=== PATIENT | female | born 1975 | race Caucasian/White ===

== ENCOUNTER 2018-03-25 13:07 | Emergency (ER) | payer MEDICARE, BC ==
[2018-03-25 13:46] LABS: BASO # 0.1 10^3/uL (0.0-0.2); BASO % 0.5 % (0.0-1.0); EOS % 0.2 % (0.0-3.0); HEMATOCRIT 37.2 % (36.0-47.0); HEMOGLOBIN 12.5 g/dl (12.0-15.5); IMMATURE GRANULOCYTE % 0.5 % (0-3.0); LYMPH # 1.5 10^3/uL (1.5-4.5); LYMPH % 13.8 % (24.0-44.0); MEAN CORPUSCULAR HEMOGLOBIN 31.4 pg (27.0-33.0); MEAN CORPUSCULAR HGB CONC 33.6 g/dl (32.0-36.5); MEAN CORPUSCULAR VOLUME 93.5 fl (80.0-96.0); MONO # 0.4 10^3/uL (0.0-0.8); MONO % 3.4 % (0.0-5.0); NEUTROPHILS # 8.8 10^3/uL (1.8-7.7); NEUTROPHILS % 81.6 % (36.0-66.0); PLATELET COUNT, AUTOMATED 337 10^3/uL (150-450); RED BLOOD COUNT 3.98 10^6/uL (4.00-5.40); RED CELL DISTRIBUTION WIDTH 13.2 % (11.5-14.5); VENOUS BASE EXCESS -3.3 (-2.0-2.0); VENOUS HCO3 22.1 MEQ/L (23.0-27.0); VENOUS O2 SATURATION 92.1 % (60.0-80.0); VENOUS PARTIAL PRESSURE CO2 40.8 mmHg (38.0-50.0); VENOUS PARTIAL PRESSURE O2 60.8 mmHg (30.0-50.0); VENOUS PH 7.351 UNITS (7.330-7.430); VENOUS STANDARD HCO3 21.6 MEQ/L; VENOUS TOTAL CO2 23.3 MEQ/L (24.0-28.0); WHITE BLOOD COUNT 10.8 10^3/uL (4.0-10.0)
[2018-03-25] MEDS: NS 1,000 ML IV ×2 (13:46→16:05)
[2018-03-25] MEDS: ONDANSETRON 4MG/2ML VIAL (J2405) IV (13:47)
[2018-03-25 14:03] LABS: CONTROL LINE HCG INT CTR LINE PRESENT; HCG, SERUM QUALITATIVE NEGATIVE (NEGATIVE)
[2018-03-25 14:04] LABS: INR 0.96; PROTHROMBIN TIME 12.9 SECONDS (12.1-14.4)
[2018-03-25] MEDS: MORPHINE 4 MG/ML 1ML VIAL/SYRINGE (J2270) IV (14:08)
[2018-03-25 14:11] LABS: ALBUMIN 3.4 GM/DL (3.2-5.2); ALBUMIN/GLOBULIN RATIO 0.68 (1.00-1.93); ALKALINE PHOSPHATASE 141 U/L (45-117); ALT/SGPT 21 U/L (12-78); ANION GAP 14 MEQ/L (8-16); AST/SGOT 12 U/L (7-37); BILIRUBIN,DIRECT < 0.1 MG/DL (0.0-0.2); BILIRUBIN,TOTAL 0.3 MG/DL (0.2-1.0); BLOOD UREA NITROGEN 20 MG/DL (7-18); CALCIUM LEVEL 9.2 MG/DL (8.5-10.1); CARBON DIOXIDE LEVEL 25 MEQ/L (21-32); CHLORIDE LEVEL 93 MEQ/L (98-107); CREATININE FOR GFR 0.82 MG/DL (0.55-1.30); ESTIMATED AVERAGE GLUCOSE 404 MG/DL (60-110); ETHYL ALCOHOL (ETHANOL) < 0.003 % (0.000-0.010); GLOMERULAR FILTRATION RATE > 60.0 (>58); HEMOGLOBIN A1c 15.7 %; LIPASE 60 U/L (73-393); POTASSIUM SERUM 4.7 MEQ/L (3.5-5.1); SODIUM LEVEL 132 MEQ/L (136-145); TOTAL PROTEIN 8.4 GM/DL (6.4-8.2)
[2018-03-25 14:13] LABS: LACTIC ACID SEPSIS PROTOCOL 0.9 MMOL/L (0.4-2.0)
[2018-03-25 14:19] LABS: GLUCOSE, FASTING 500 MG/DL (70-100)
[2018-03-25] MEDS: MORPHINE 2 MG/ML 1ML SYRINGE (J2270) IV (15:30)
[2018-03-25 15:55] LABS: BEDSIDE GLUCOSE 384 MG/DL (70-105)
[2018-03-25] MEDS: HumuLIN R (REGULAR) INSULIN (NovoLIN R) **100U/ML** PER UNIT IV ×2 (16:14→17:06)
[2018-03-25 16:19] LABS: AMORPHOUS SEDIMENT RFX SMALL (NEGATIVE); KETONE, URINE AUTO RFX 2+ mg/dL (NEGATIVE); LEUKOCYTE ESTERASE UR AUTO RFX NEGATIVE (NEGATIVE); MUCUS, URINE RFX SMALL (NEGATIVE); NITRITE, URINE AUTO RFX NEGATIVE (NEGATIVE); RBC, URINE AUTO RFX 41 /HPF (0-3); SPECIFIC GRAVITY UR AUTO RFX 1.027 (1.002-1.035); SQUAM EPITHELIAL CELL UR AURFX 4 /HPF (0-6); WBC, URINE AUTO RFX 9 /HPF (0-3)
[2018-03-25 16:34] LABS: AMPHETAMINES LEVEL URINE NEGATIVE (NEGATIVE); BARBITURATES URINE NEGATIVE (NEGATIVE); BENZODIAZEPINES URINE NEGATIVE (NEGATIVE); CANNABINOIDS URINE NEGATIVE (NEGATIVE); COCAINE METABOLITE URINE NEGATIVE (NEGATIVE); METHADONE URINE NEGATIVE (NEGATIVE); OPIATES URINE POSITIVE (NEGATIVE); PHENCYCLIDINE URINE NEGATIVE (NEGATIVE)
[2018-03-25 16:56] LABS: BEDSIDE GLUCOSE 292 MG/DL (70-105)
[2018-03-25] MEDS: PANTOPRAZOLE 40MG TAB (PROTONIX) PO (18:16)
[2018-03-25] MEDS: GI COCKTAIL 50ML BTL(HYOSCYAMINE/MAALOX/LIDOCAINE VISCOUS)(1:3:1) PO (18:16)
[2018-03-25] MEDS: PERCOCET 5MG/325MG TAB PO (18:17)
[2018-03-25 18:20] LABS: BEDSIDE GLUCOSE 238 MG/DL (70-105)
[2018-03-28 13:50] LABS: BEDSIDE GLUCOSE 562 MG/DL (70-105)
== END 2018-03-25 18:39 | disposition home or self-care (01) ==
LOC: M ED 13:07
DX: N39.0 Urinary tract infection, site not specified (principal); E11.65 Type 2 diabetes mellitus with hyperglycemia; F17.200 Nicotine dependence, unspecified, uncomplicated; Z88.1 Allergy status to other antibiotic agents; Z88.8 Allergy status to other drugs, medicaments and biological substances
CPT/HCPCS: J2270

== ENCOUNTER 2019-01-03 01:15 | Inpatient (IN) | payer MEDICARE, MEDICAID ==
[~2019-01-03] VITALS: Ht 185.4 cm; Wt 69.3 kg
[2019-01-03] VITALS (16 sets, daily range): BP systolic 105–157; BP diastolic 65–95
[~2019-01-03 01:15] MED LIST: KEPP10002 PO; MACR100C43 PO; OMEP10CASR PO
[2019-01-03] MEDS ORDERED: OXYC15TA76 (01:28)
[2019-01-03] MEDS ORDERED: SERT-155 (01:28)
[2019-01-03] MEDS ORDERED: DIAZ2TAB (01:28)
[2019-01-03 02:58] LABS: BASO # 0.1 10^3/uL (0.0-0.2); BASO % 0.5 % (0.0-1.0); HEMATOCRIT 41.2 % (36.0-47.0); HEMOGLOBIN 13.4 g/dl (12.0-15.5); LYMPH # 1.4 10^3/uL (1.5-4.5); LYMPH % 13.6 % (24.0-44.0); MEAN CORPUSCULAR HEMOGLOBIN 30.2 pg (27.0-33.0); MEAN CORPUSCULAR HGB CONC 32.5 g/dl (32.0-36.5); MEAN CORPUSCULAR VOLUME 92.8 fl (80.0-96.0); MONO # 0.2 10^3/uL (0.0-0.8); MONO % 2.2 % (0.0-5.0); NEUTROPHILS # 8.8 10^3/uL (1.8-7.7); PLATELET COUNT, AUTOMATED 425 10^3/uL (150-450); RED BLOOD COUNT 4.44 10^6/uL (4.00-5.40); WHITE BLOOD COUNT 10.6 10^3/uL (4.0-10.0)
[2019-01-03] MEDS ORDERED: NS 1,000 ML IV ONE ×3 (03:00→06:00)
[2019-01-03] MEDS ORDERED: INSULIN IV RATE CHANGE DOCUMENTATION ML/HR XX SCH (03:00)
[2019-01-03] MEDS ORDERED: HumuLIN R (REGULAR) INSULIN (NovoLIN R) **100U/ML** PER UNIT IV ONE ×2 (03:00→04:15)
[2019-01-03] MEDS ORDERED: INSULIN HUMAN REGULAR 100 UNITS in NS 99 ML IV SCH ×2 (03:00→04:43)
[2019-01-03] MEDS ORDERED: OXYC15TA76 PO (03:29)
[2019-01-03] MEDS ORDERED: DIAZ2TAB PO (03:29)
[2019-01-03] MEDS ORDERED: SERT-155 PO (03:29)
[2019-01-03] MEDS ORDERED: INSUH10VL SC (03:29)
[2019-01-03] MEDS ORDERED: OMEP10CA78 PO (03:29)
[2019-01-03] MEDS ORDERED: TRES1INJ SC (03:29)
[2019-01-03] MEDS ORDERED: KEPP10002 PO (03:29)
[2019-01-03 04:08] LABS: ALT/SGPT 22 U/L (12-78); BILIRUBIN,TOTAL 0.5 MG/DL (0.2-1.0); BLOOD UREA NITROGEN 45 MG/DL (7-18); CALCIUM LEVEL 9.5 MG/DL (8.5-10.1); CARBON DIOXIDE LEVEL 12 MEQ/L (21-32); CHLORIDE LEVEL 93 MEQ/L (98-107); CREATININE FOR GFR 1.48 MG/DL (0.55-1.30); GLOMERULAR FILTRATION RATE 41.4 (>58); GLUCOSE, FASTING 532 MG/DL (70-100); SODIUM LEVEL 132 MEQ/L (136-145)
[2019-01-03 04:09] LABS: BILIRUBIN,DIRECT < 0.1 MG/DL (0.0-0.2); LIPASE 41 U/L (73-393); TOTAL PROTEIN 8.7 GM/DL (6.4-8.2)
[2019-01-03] MEDS ORDERED: METOCLOPRAMIDE INJ 10MG/2ML VIAL (J2765) IV ONE (04:15)
[2019-01-03 04:31] LABS: ACETONE/KETONE > 46.00 MG/DL (<2.81)
[2019-01-03] MEDS ORDERED: NS 1,000 ML IV SCH (04:43)
[2019-01-03] MEDS ORDERED: D5W/0.9% SODIUM CHLORIDE 1,000 ML IV SCH (04:45)
[2019-01-03] MEDS ORDERED: PANTOPRAZOLE 40MG INJ (PROTONIX) (C9113) IV ONE (05:15)
[2019-01-03] MEDS ORDERED: MORPHINE 4 MG/ML 1ML VIAL/SYRINGE (J2270) IV ONE ×2 (05:45→08:00)
[2019-01-03] MEDS ORDERED: MAALOX 30 ML SUSP *UDC PO PRN (05:45)
--- NOTE | 2019-01-03 05:56 | HPEPDOC ---
General Date of Admission 01/03/19 Primary Care Physician: Juan C Other Providers Dr Brown, PCP Chief Complaint The patient is a 43-year-old female admitted with a reason for visit of General Medical. Source: Patient, Old records Exam Limitations: No limitations Associated Symptoms: Loss of appetite, Malaise, Nausea, Vomiting History of Present Illness 43 year old female with PMH of Diabetes type 1 from the age of 24 years, diabetic neuropathy, seizure disorder, anxiety/ depression presented to the ED with 4 days history of nausea and vomiting and abdominal pain. It started after her kids got sick with some bug and thery were having diarrhea and vomiting and she thinks she caught it from them. She however did not have diarrhea. She has been unable to eat and keep anything down so she has not been taking her insulin. If she cannot eat then she does nto take her insulin. In the ED she was found to be in DKA and admitted to the hospitalist service. Home Medications Scheduled Insulin Degludec (Tresiba Flextouch U-200) 200 Unit/1 Ml Insuln.pen, 42 UNIT SC DAILY, (Reported) Insulin Human Lispro (Novolog) 100 Unit/1 Ml Vial, 1 DOSE SC AC, (Reported) PER SLIDING SCALE Levetiracetam (Keppra) 1,000 Mg Tablet, 1,000 MG PO BID, (Reported) Omeprazole (Omeprazole) 10 Mg Capsule.dr, 10 MG PO DAILY, (Reported) Sertraline HCl (Sertraline HCl) 50 Mg Tablet, 50 MG PO DAILY, (Reported) Scheduled PRN Diazepam (Diazepam) 2 Mg Tablet, 2 MG PO TID PRN for ANXIETY, (Reported) Oxycodone Hcl (Oxycodone HCl) 15 Mg Tablet, 15 MG PO Q4H PRN for PAIN, (R eported) Allergies Coded Allergies: ciprofloxacin (Verified Allergy, Unknown, 01/03/19) gabapentin (Verified Allergy, Unknown, 01/03/19) pregabalin (Verified Allergy, Unknown, 01/03/19) vancomycin (Verified Allergy, Unknown, 01/03/19) Past Medical History Medical History Diabetes type 1 diabetic neuropathy Seizure disorder Anxiety and depression osteoarthritis tremors/ restless legs left and right foot osteomyelitis recurrent boils of the legs. Surgical History c section 2004 cholecystectomy 2012 right transmetatarsal amputation wound vac surgery Family History Significant Family History: Diabetes Social History * Smoker: current smoker Alcohol: Denies Drugs: denies Review of Systems Constitutional: Reports: Malaise, Weakness, Fatigue ENT: Denies: Head Aches, Ear Pain, Dysphagia Skin: Denies: Rash, Lesions Pulmonary: Denies: Dyspnea, Cough Cardiovascular: Reports: Lt Headedness; Denies: Chest Pain, Palpitations, Orthopnea Gastrointestinal: Reports: Nausea, Vomiting, Abdominal Pain Genitourinary: Denies: Dysuria, Frequency, Incontinence Hematologic: Denies: Bruising, Bleeding Excessively Neurological: Denies: Numbness, Change in speech, Confusion Psych: Reports: Mood Normal; Denies: Depression, Memory Issues Physical Examination General Exam: Positive: Alert, Cooperative, Mild Distress (due to vomiting) Eye Exam: Positive: PERRLA, Conjunctiva & lids normal, EOMI Neck Exam: Positive: Supple Chest Exam: Positive: Clear to auscultation, Normal air movement Heart Exam: Positive: Rate Normal, Regular Rhythm, Normal S1, Normal S2; Negative: Murmurs, Rubs Telemetry: Positive: Sinus, Tachycardia Abdomen Exam: Positive: BS Hypoactive, Soft, Tenderness, Other (No guarding or rigidity or rebound tenderness. ) Extremity Exam: Positive: Other (right transmetatarsal amputation); Negative: Clubbing, Cyanosis, Edema Neuro Exam: Positive: Normal Speech, Strength at 5/5 X4 ext Psych Exam: Positive: Mental status NL, Oriented x 3 Vital Signs Vital Signs Date Time Temp Pulse Resp B/P (MAP) Pulse Ox O2 Delivery O2 Flow Rate FiO2 01/03/19 03:19 101 28 97/59 (72) 99 Room Air 01/03/19 01:41 96.7 Laboratory Data Labs 24H Laboratory Tests 2 01/03/19 02:21: Bedside Glucose (Misc Panel) 494H 01/03/19 02:52: Immature Granulocyte % (Auto) 0.7, White Blood Count 10.6H, Red Blood Count 4.44, Hemoglobin 13.4, Hematocrit 41.2, Mean Corpuscular Volume 92.8, Mean Corpuscular Hemoglobin 30.2, Mean Corpuscular Hemoglobin Concent 32.5, Red Cell Distribution Width 13.2, Platelet Count 425, Neutrophils (%) (Auto) 83.0H, Lymphocytes (%) (Auto) 13.6L, Monocytes (%) (Auto) 2.2, Eosinophils (%) (Auto) 0.0, Basophils (%) (Auto) 0.5, Neutrophils # (Auto) 8.8H, Lymphocytes # (Auto) 1.4L, Monocytes # (Auto) 0.2, Eosinophils # (Auto) 0.0, Basophils # (Auto) 0.1, Nucleated Red Blood Cells % (auto) 0.0, Anion Gap 27H, Glomerular Filtration Rate 41.4L, Lactic Acid Level 1.2, Calcium Level 9.5, Aspartate Amino Transf (AST/SGOT) 9, Alanine Aminotransferase (ALT/SGPT) 22, Alkaline Phosphatase 148H, Total Bilirubin 0.5, Direct Bilirubin < 0.1, Total Protein 8.7H, Albumin 4.0, Albumin/Globulin Ratio 0.85L, Lipase 41L, B-Hydroxybutyrate > 46.00H 01/03/19 03:08: Bedside Glucose (Misc Panel) 535*H 01/03/19 03:41: Bedside Glucose (Misc Panel) 409H 01/03/19 04:09: Bedside Glucose (Misc Panel) 398H 01/03/19 04:37: CBC/BMP Laboratory Tests 01/03/19 02:52 Red Blood Count 4.44, Mean Corpuscular Volume 92.8, Mean Corpuscular Hemoglobin 30.2, Mean Corpuscular Hemoglobin Concent 32.5, Red Cell Distribution Width 13.2, Neutrophils (%) (Auto) 83.0 H, Lymphocytes (%) (Auto) 13.6 L, Monocytes (%) (Auto) 2.2, Eosinophils (%) (Auto) 0.0, Basophils (%) (Auto) 0.5, Neutrophils # (Auto) 8.8 H, Lymphocytes # (Auto) 1.4 L, Monocytes # (Auto) 0.2, Eosinophils # (Auto) 0.0, Basophils # (Auto) 0.1 Assessment/Plan 43 year old female with PMH of Diabetes type 1 from the age of 24 years, diabetic neuropathy, seizure disorder, anxiety/ depression presented to the ED with 4 days history of nausea and vomiting and abdominal pain. It started after her kids got sick with some bug and thery were having diarrhea and vomiting and she thinks she caught it from them. She however did not have diarrhea. She has been unable to eat and keep anything down so she has not been taking her insulin. If she cannot eat then she does nto take her insulin. In the ED she was found to be in DKA and admitted to the hospitalist service. DKA will admit to ICU NS bolus 2 liters then NS @ 150 cc / hour. Once BS drops below 200 change IVF to 5%dex/ Ns @ 100 cc per hour. BMP q 4 hours. Regular insulin gtt as per scale. will continue insulin gtt tillbicarb is 20 or greater then will change to sub cutaneous insulin. FS q 1 hours. NPO, reglan. ISABEL due to osmotic diuresis and poor oral intake continue IVF. Severe protein calorie Malnutrition as seen by temporal wasting, BMI of 17.7, Albumin is not low which i think is due to dehydration is falsely elevated. Seizure disorder will continue home meds Chronic pain will give morphine now then change to home medication when she can tolerate PO meds. Anxiety and depression continue home meds GERD will give pantoprazole and maalox. DVT prophylaxis ordered. Plan / VTE VTE Prophylaxis Ordered?: Yes RAND DIAS MD Jan 03, 2019 04:43
[2019-01-03] MEDS ORDERED: diazePAM 2 MG TAB PO PRN (06:00)
[2019-01-03] MEDS: INSULIN IV RATE CHANGE DOCUMENTATION ML/HR XX SCH ×5 (06:01→10:58)
[2019-01-03 06:09] LABS: ABG BASE EXCESS -8.3 (-2.0-2.0); ABG HCO3 17.8 MEQ/L (22.0-26.0); ABG O2 SATURATION 71.3 % (95.0-99.0); ABG PARTIAL PRESSURE CO2 38.6 mmHg (35.0-45.0); ABG STANDARD HCO3 17.3 MEQ/L (22.0-26.0); ABG pH (ARTERIAL) 7.281 UNITS (7.350-7.450)
[2019-01-03 06:12] LABS: ABG PARTIAL PRESSURE O2 39.9 mmHg (75.0-100.0)
[2019-01-03 06:25] LABS: HEMOGLOBIN A1c 14.7 %
[2019-01-03 06:32] LABS: CALCIUM LEVEL 8.6 MG/DL (8.5-10.1); CREATININE FOR GFR 1.43 MG/DL (0.55-1.30); POTASSIUM SERUM 3.3 MEQ/L (3.5-5.1)
[2019-01-03] MEDS ORDERED: KCL 40MEQ in NS 1000ML 1,000 ML IV SCH (06:45)
--- NOTE | 2019-01-03 07:06 | REP ---
The portable chest at two views, semi upright AP projections, 02:55 a.m., post central venous catheter placement: There are no comparisons. There is a right subclavian central venous catheter with the tip at the confluence of the superior vena cava and right atrium in satisfactory position. Lung younger are clear. Cardiac size is normal. A loop recorder is incidentally noted over the left hemithorax. The Electronically Signed by Shalom Thomas MD 01/03/2019 06:57 A
[2019-01-03] MEDS: METOCLOPRAMIDE INJ 10MG/2ML VIAL (J2765) IV PRN ×2 (07:08→19:50)
[2019-01-03] MEDS: KCL 10MEQ/100ML SWI (KRUN) 10 MEQ in APPROPRIATE DILUENT 1 EA IV SCH ×2 (07:09→08:17)
[2019-01-03] MEDS ORDERED: ONDANSETRON 4MG/2ML VIAL (J2405) IV SCH (08:00)
[2019-01-03] MEDS ORDERED: ONDANSETRON 4MG/2ML VIAL (J2405) IV PRN (08:30)
[2019-01-03] MEDS: HEPARIN SOD (PORCINE) 5000 UNITS/ML VIAL SC SCH ×2 (08:40→20:37)
[2019-01-03] MEDS: PANTOPRAZOLE 40MG INJ (PROTONIX) (C9113) IV SCH (08:40)
[2019-01-03] MEDS: SERTRALINE HCL 50 MG TAB PO SCH (08:40)
[2019-01-03] MEDS ORDERED: levETIRAcetam 250MG TABLET (KEPPRA) PO SCH (09:00)
[2019-01-03] MEDS ORDERED: PANTOPRAZOLE 40MG INJ (PROTONIX) (C9113) IV SCH (09:00)
[2019-01-03] MEDS: levETIRAcetam INJection 1,000 MG in D5W 100 ML IV SCH ×2 (09:46→21:40)
[2019-01-03] MEDS: KCL 20MEQ IN D5/0.45NS 1000ML 1,000 ML IV SCH ×2 (09:47→18:40)
[2019-01-03] MEDS ORDERED: MORPHINE 4 MG/ML 1ML VIAL/SYRINGE (J2270) IV PRN (10:15)
[2019-01-03 11:16] LABS: CREATININE FOR GFR 1.29 MG/DL (0.55-1.30); GLOMERULAR FILTRATION RATE 48.5 (>58); POTASSIUM SERUM 4.2 MEQ/L (3.5-5.1)
[2019-01-03] MEDS ORDERED: GLUCAGON FOR INJ 1 MG VIAL (J1610) SC PRN (12:00)
[2019-01-03] MEDS ORDERED: GLUCOSE 4 GM CHEW TABLET PO PRN (12:00)
[2019-01-03] MEDS ORDERED: DEXTROSE 50% 50 ML SYRINGE IV PRN (12:00)
[2019-01-03] MEDS: HumaLOG INSULIN (NovoLOG) PER UNIT SC SCH ×2 (12:30→17:08)
[2019-01-03] MEDS: oxyCODONE 5MG TAB PO PRN ×3 (12:31→20:30)
[2019-01-03 17:46] LABS: CREATININE FOR GFR 1.18 MG/DL (0.55-1.30); GLOMERULAR FILTRATION RATE 53.7 (>58); POTASSIUM SERUM 3.9 MEQ/L (3.5-5.1)
[2019-01-03] MEDS ORDERED: LEVEMIR (INSULIN DETEMIR) 1 UNITS/0.01ML SC SCH (21:00)
[2019-01-04] VITALS (7 sets, daily range): BP systolic 91–110; BP diastolic 49–75
[2019-01-04] MEDS: HumaLOG INSULIN (NovoLOG) PER UNIT SC SCH ×4 (00:28→17:19)
[2019-01-04] MEDS: oxyCODONE 5MG TAB PO PRN ×6 (00:30→21:06)
[2019-01-04 05:38] LABS: HEMATOCRIT 31.4 % (36.0-47.0); MEAN CORPUSCULAR HEMOGLOBIN 30.1 pg (27.0-33.0); MEAN CORPUSCULAR HGB CONC 33.1 g/dl (32.0-36.5); PLATELET COUNT, AUTOMATED 319 10^3/uL (150-450); RED BLOOD COUNT 3.45 10^6/uL (4.00-5.40); WHITE BLOOD COUNT 10.3 10^3/uL (4.0-10.0)
[2019-01-04 05:42] LABS: HEMOGLOBIN 10.4 g/dl (12.0-15.5)
[2019-01-04] MEDS: KCL 20MEQ IN D5/0.45NS 1000ML 1,000 ML IV SCH ×2 (06:00→12:36)
[2019-01-04 06:05] LABS: ALBUMIN 2.9 GM/DL (3.2-5.2); ALT/SGPT 15 U/L (12-78); BILIRUBIN,TOTAL 0.2 MG/DL (0.2-1.0); BLOOD UREA NITROGEN 16 MG/DL (7-18); CALCIUM LEVEL 8.2 MG/DL (8.5-10.1); CARBON DIOXIDE LEVEL 26 MEQ/L (21-32); CHLORIDE LEVEL 106 MEQ/L (98-107); CREATININE FOR GFR 1.05 MG/DL (0.55-1.30); GLOMERULAR FILTRATION RATE > 60.0 (>58); GLUCOSE, FASTING 156 MG/DL (70-100); MAGNESIUM LEVEL 1.7 MG/DL (1.8-2.4); POTASSIUM SERUM 3.9 MEQ/L (3.5-5.1); SODIUM LEVEL 140 MEQ/L (136-145); TOTAL PROTEIN 6.6 GM/DL (6.4-8.2)
[2019-01-04] MEDS: SERTRALINE HCL 50 MG TAB PO SCH (08:43)
[2019-01-04] MEDS: HEPARIN SOD (PORCINE) 5000 UNITS/ML VIAL SC SCH ×4 (08:44→21:00)
[2019-01-04] MEDS: levETIRAcetam INJection 1,000 MG in D5W 100 ML IV SCH (08:44)
[2019-01-04] MEDS: PANTOPRAZOLE 40MG INJ (PROTONIX) (C9113) IV SCH (08:44)
[2019-01-04] MEDS: METOCLOPRAMIDE 10 MG TAB PO SCH ×3 (12:00→21:06)
--- NOTE | 2019-01-04 12:52 | IPNPDOC ---
Subjective Date Seen The patient was seen on 01/04/19. Subjective Chief Complaint/HPI Patient is tolerating breakfast today and some nausea but offers no other complaints General: Reports: Normal Appetite; Denies: Chills, Night Sweats, Fatigue, Malaise Constitutional: Denies: Chills, Fever, Night Sweats Eyes: Denies: Pain, Vision change ENT: Denies: Head Aches, Ear Pain, Dysphagia Skin: Denies: Rash, Lesions, Breakdown Pulmonary: Denies: Dyspnea, Cough Cardiovascular: Denies: Chest Pain, Palpitations, Orthopnea, Paroxysmal Noc. Dyspnea, Lt Headedness Gastrointestinal: Reports: Nausea; Denies: Vomiting, Abdominal Pain, Diarrhea, Constipation Genitourinary: Denies: Dysuria, Frequency, Incontinence, Retention Hematologic: Denies: Bruising, Bleeding Excessively Musculoskeletal: Denies: Neck Pain, Back Pain, Joint Pain, Muscle Pain, Spasms Neurological: Denies: Weakness, Numbness, Change in speech, Confusion Psych: Reports: Mood Normal; Denies: Depression, Memory Issues Objective Physical Examination General Exam: Positive: Alert, Cooperative, Mild Distress Eye Exam: Positive: PERRLA, Conjunctiva & lids normal, EOMI Neck Exam: Positive: Supple Chest Exam: Positive: Clear to auscultation, Normal air movement Heart Exam: Positive: Rate Normal, Regular Rhythm, Normal S1, Normal S2 Telemetry: Positive: Sinus, Tachycardia Abdomen Exam: Positive: BS Hypoactive, Soft, Tenderness, Other Extremity Exam: Positive: Other Neuro Exam: Positive: Normal Speech, Strength at 5/5 X4 ext Psych Exam: Positive: Mental status NL, Oriented x 3 Assessment /Plan Problems (1) DKA (diabetic ketoacidoses) Status: Acute Response to Treatment: Improving Discussed With: Nurse Problem Text: Patient is tolerating breakfast today and will also have for 24 hours She'll be transferred to medical floor for further care Patient is on a fingerstick blood sugar coverage. We'll increase Lantus to home dose of 42 units subcutaneous daily at bedtime Change all IV meds to by mouth DVT prophylaxis with the heparin GI prophylaxis with a PPI Continue home meds Out of bed as tolerated Possible discharge home tomorrow a.m. Plan/VTE VTE Prophylaxis Ordered?: Yes VS, I&O, 24H, Fishbone Vital Signs/I&O Vital Signs Date Time Temp Pulse Resp B/P (MAP) Pulse Ox O2 Delivery O2 Flow Rate FiO2 01/04/19 12:36 16 98 01/04/19 12:00 98.3 96 96/55 (69) 01/03/19 06:15 Room Air I&O- Last 24 Hours up to 6 AM 01/04/19 06:00 Intake Total 5150 ml Output Total 2900 ml Balance 2250 ml Laboratory Data 24H LABS Laboratory Tests 2 01/03/19 17:05: Bedside Glucose (Misc Panel) 283H 01/03/19 17:11: Anion Gap 12, Glomerular Filtration Rate 53.7L, Blood Urea Nitrogen 29H, Creatinine 1.18, Sodium Level 139, Potassium Level 3.9, Chloride Level 107, Ca rbon Dioxide Level 20L, Calcium Level 8.0L 01/03/19 20:26: Bedside Glucose (Misc Panel) 281H 01/04/19 00:19: Bedside Glucose (Misc Panel) 371H 01/04/19 05:28: Nucleated Red Blood Cells % (auto) 0.0, Anion Gap 8, Glomerular Filtration Rate > 60.0, Blood Urea Nitrogen 16, Creatinine 1.05, Sodium Level 140, Potassium Level 3.9, Chloride Level 106, Carbon Dioxide Level 26, Calcium Level 8.2L, Aspartate Amino Transf (AST/SGOT) 10, Alanine Aminotransferase (ALT/SGPT) 15, Alkaline Phosphatase 100, Total Bilirubin 0.2#, Total Protein 6.6#, Albumin 2.9#L, Magnesium Level 1.7L, Albumin/Globulin Ratio 0.78L 01/04/19 11:41: Bedside Glucose (Misc Panel) 241H CBC/BMP Laboratory Tests 01/03/19 17:11 Calcium Level 8.0 L 01/04/19 05:28 Calcium Level 8.2 L, Red Blood Count 3.45 L, Mean Corpuscular Volume 91.0, Mean Corpuscular Hemoglobin 30.1, Mean Corpuscular Hemoglobin Concent 33.1, Red Cell Distribution Width 13.5, Aspartate Amino Transf (AST/SGOT) 10, Alanine Aminotransferase (ALT/SGPT) 15, Alkaline Phosphatase 100, Total Bilirubin 0.2 #, Total Protein 6.6 #, Albumin 2.9 #L KIZZY HAN MD Jan 04, 2019 12:52
[2019-01-04] MEDS ORDERED: HumaLOG INSULIN (NovoLOG) PER UNIT SC SCH (21:00)
[2019-01-04] MEDS ORDERED: LEVEMIR (INSULIN DETEMIR) 1 UNITS/0.01ML SC SCH (21:00)
[2019-01-04] MEDS: levETIRAcetam 250MG TABLET (KEPPRA) PO SCH (21:06)
[2019-01-05] MEDS: oxyCODONE 5MG TAB PO PRN ×3 (01:14→10:37)
[2019-01-05] MEDS: KCL 20MEQ IN D5/0.45NS 1000ML 1,000 ML IV SCH ×2 (01:15→09:18)
[2019-01-05 06:00] VITALS: BP 115/74
[2019-01-05] MEDS: HumaLOG INSULIN (NovoLOG) PER UNIT SC SCH ×2 (08:03→12:11)
[2019-01-05] MEDS: HEPARIN SOD (PORCINE) 5000 UNITS/ML VIAL SC SCH (08:04)
[2019-01-05] MEDS: levETIRAcetam 250MG TABLET (KEPPRA) PO SCH (08:04)
[2019-01-05] MEDS: SERTRALINE HCL 50 MG TAB PO SCH (08:04)
[2019-01-05 08:05] LABS: HEMATOCRIT 30.1 % (36.0-47.0); MEAN CORPUSCULAR HEMOGLOBIN 30.4 pg (27.0-33.0); MEAN CORPUSCULAR HGB CONC 33.2 g/dl (32.0-36.5); MEAN CORPUSCULAR VOLUME 91.5 fl (80.0-96.0); PLATELET COUNT, AUTOMATED 247 10^3/uL (150-450); RED BLOOD COUNT 3.29 10^6/uL (4.00-5.40); WHITE BLOOD COUNT 5.6 10^3/uL (4.0-10.0)
[2019-01-05 08:32] LABS: ALBUMIN 2.6 GM/DL (3.2-5.2); ALT/SGPT 14 U/L (12-78); BILIRUBIN,TOTAL 0.2 MG/DL (0.2-1.0); BLOOD UREA NITROGEN 15 MG/DL (7-18); CALCIUM LEVEL 8.2 MG/DL (8.5-10.1); CARBON DIOXIDE LEVEL 29 MEQ/L (21-32); CHLORIDE LEVEL 106 MEQ/L (98-107); CREATININE FOR GFR 0.58 MG/DL (0.55-1.30); GLOMERULAR FILTRATION RATE > 60.0 (>58); GLUCOSE, FASTING 120 MG/DL (70-100); POTASSIUM SERUM 4.4 MEQ/L (3.5-5.1); SODIUM LEVEL 140 MEQ/L (136-145); TOTAL PROTEIN 5.9 GM/DL (6.4-8.2)
[2019-01-05] MEDS: METOCLOPRAMIDE 10 MG TAB PO SCH ×2 (08:33→12:11)
[2019-01-05] MEDS ORDERED: PANTOPRAZOLE 40MG TAB (PROTONIX) PO SCH (09:00)
--- NOTE | 2019-01-05 10:59 | DS.PDOC ---
Discharge Summary General Date of Admission Jan 03, 2019 at 04:43 Date of Discharge January 05 2019 Attending Physician: KIZZY HAN MD Discharge Summary PROCEDURES PERFORMED DURING STAY: None. ADMITTING DIAGNOSES: 1. DKA. DISCHARGE DIAGNOSES: 1. DKA. COMPLICATIONS/CHIEF COMPLAINT: Dka (Diabetic Ketoacidoses). HISTORY OF PRESENT ILLNESS: 43 year old female with PMH of Diabetes type 1 from the age of 24 years, diabetic neuropathy, seizure disorder, anxiety/ depression presented to the ED with 4 days history of nausea and vomiting and abdominal pain. It started after her kids got sick with some bug and thery were having diarrhea and vomiting and she thinks she caught it from them. She however did not have diarrhea. She has been unable to eat and keep anything down so she has not been taking her insulin. If she cannot eat then she does nto take her insulin. In the ED she was found to be in DKA and admitted to the hospitalist service.. HOSPITAL COURSE: Patient was admitted to ICU for with DKA. Initially she was started on IV insulin with IV fluids O on fluids were changed to D5 half-normal saline. Once the blood sugar was up to 200. Potassium supplement was also given. Patient is a gradient dropped down from a 35-12, and insulin was changed to subcutaneous coverage. Patient was started on her clear liquid diet followed by regular diet and was started on on her basal insulin as well. Extensive counseling regarding compliance was done and all the complications of diabetes mellitus and nontreatment and noncompliance were explained to her, which she understands very well. Patient can be discharged home on her current home medications and follow up with PCP in one week. DISCHARGE MEDICATIONS: Please see below. ALLERGIES: Please see below. PHYSICAL EXAMINATION ON DISCHARGE: VITAL SIGNS: Please see below. GENERAL: Within normal limits HEENT: PERRLA NECK: Supple CARDIOVASCULAR EXAMINATION: S1, S2, regular RESPIRATORY EXAMINATION: Clear to A&P ABDOMINAL EXAMINATION: Benign EXTREMITIES:. No clubbing, cyanosis or edema SKIN: Within normal limits NEUROLOGICAL EXAMINATION: Within normal limits PSYCHIATRIC EXAMINATION:. Normal LABORATORY DATA: Please see below. IMAGING: None PROGNOSIS: ACTIVITY: As tolerated. DIET: Diabetic diet DISCHARGE PLAN: All over the PCP DISPOSITION: . Normal DISCHARGE INSTRUCTIONS: 1. follow up with PCP. ITEMS TO FOLLOWUP ON ON OUTPATIENT: 1. None. DISCHARGE CONDITION: Stable. TIME SPENT ON DISCHARGE: Greater than 48 minutes. Vital Signs/I&Os Vital Signs Date Time Temp Pulse Resp B/P (MAP) Pulse Ox O2 Delivery O2 Flow Rate FiO2 01/05/19 10:37 18 01/05/19 06:00 97.6 88 115/74 (88) 99 01/03/19 06:15 Room Air I&O- Last 24 Hours up to 6 AM 01/05/19 06:00 Intake Total 3855 ml Output Total 2800 ml Balance 1055 ml Laboratory Data Labs 24H Laboratory Tests 2 01/04/19 11:41: Bedside Glucose (Misc Panel) 241H 01/04/19 16:39: Bedside Glucose (Misc Panel) 385H 01/04/19 19:59: Bedside Glucose (Misc Panel) 341H 01/05/19 07:39: Nucleated Red Blood Cells % (auto) 0.0, Anion Gap 5L, Glomerular Filtration Rate > 60.0, Blood Urea Nitrogen 15, Creatinine 0.58, Sodium Level 140, Potassium Level 4.4, Chloride Level 106, Carbon Dioxide Level 29, Calcium Level 8.2L, Aspartate Amino Transf (AST/SGOT) 11, Alanine Aminotransferase (ALT/SGPT) 14, Alkaline Phosphatase 85, Total Bilirubin 0.2, Total Protein 5.9L, Albumin 2.6L, Albumin/Globulin Ratio 0.79L 01/05/19 07:41: Bedside Glucose (Misc Panel) 123H CBC/BMP Laboratory Tests 01/05/19 07:39 Red Blood Count 3.29 L, Mean Corpuscular Volume 91.5, Mean Corpuscular Hemoglobin 30.4, Mean Corpuscular Hemoglobin Concent 33.2, Red Cell Distribution Width 13.4, Calcium Level 8.2 L, Aspartate Amino Transf (AST/SGOT) 11, Alanine Aminotransferase (ALT/SGPT) 14, Alkaline Phosphatase 85, Total Bilirubin 0.2, Total Protein 5.9 L, Albumin 2.6 L FSBS Laboratory Tests Test 01/04/19 11:41 01/04/19 16:39 01/04/19 19:59 01/05/19 07:41 Range/Units Bedside Glucose (Misc Panel) 241 385 341 123 70-105 MG/DL Discharge Medications Scheduled Insulin Degludec (Tresiba Flextouch U-200) 200 Unit/1 Ml Insuln.pen, 42 UNIT SC DAILY, (Reported) Insulin Human Lispro (Novolog) 100 Unit/1 Ml Vial, 1 DOSE SC AC, (Reported) PER SLIDING SCALE Levetiracetam (Keppra) 1,000 Mg Tablet, 1,000 MG PO BID, (Reported) Omeprazole (Omeprazole) 10 Mg Capsule.dr, 10 MG PO DAILY, (Reported) Sertraline HCl (Sertraline HCl) 50 Mg Tablet, 50 MG PO DAILY, (Reported) Scheduled PRN Diazepam (Diazepam) 2 Mg Tablet, 2 MG PO TID PRN for ANXIETY, (Reported) Oxycodone Hcl (Oxycodone HCl) 15 Mg Tablet, 15 MG PO Q4H PRN for PAIN, (Reported) Allergies Coded Allergies: ciprofloxacin (Verified Allergy, Unknown, 01/03/19) gabapentin (Verified Allergy, Unknown, 01/03/19) pregabalin (Verified Allergy, Unknown, 01/03/19) vancomycin (Verified Allergy, Unknown, 01/03/19) KIZZY HAN MD Jan 05, 2019 10:59
== END 2019-01-05 12:45 | disposition home or self-care (01) | DRG 637 ==
LOC: EDBD 01:15 → M ED 01:15 → M ED INP 04:43 → M ICU 06:31 → M MS5PR 01-04 15:22
PROVIDERS: ADMIT Internal Medicine Nephrology; ATTEND Internal Medicine
DX: E10.10 Type 1 diabetes mellitus with ketoacidosis without coma (principal); E43 Unspecified severe protein-calorie malnutrition; N17.9 Acute kidney failure, unspecified; Z68.1 Body mass index [BMI] 19.9 or less, adult; E10.40 Type 1 diabetes mellitus with diabetic neuropathy, unspecified; G40.909 Epilepsy, unspecified, not intractable, without status epilepticus; F41.9 Anxiety disorder, unspecified; F32.9 Major depressive disorder, single episode, unspecified; Z91.14 Patient's other noncompliance with medication regimen; Z79.4 Long term (current) use of insulin; Z79.899 Other long term (current) drug therapy; Z88.8 Allergy status to other drugs, medicaments and biological substances; M19.90 Unspecified osteoarthritis, unspecified site; G25.81 Restless legs syndrome; R25.1 Tremor, unspecified; F17.200 Nicotine dependence, unspecified, uncomplicated; K21.9 Gastro-esophageal reflux disease without esophagitis

== ENCOUNTER 2019-01-21 14:16 | Inpatient (IN) | payer MEDICARE, MEDICAID ==
[~2019-01-21] VITALS: Ht 185.4 cm; Wt 63.6 kg
[~2019-01-21 14:16] MED LIST changes: +DIAZ2TAB; +DIAZ2TAB PO; +INSUH10VL SC; +OMEP10CA78 PO; +OXYC15TA76; +OXYC15TA76 PO; +SERT-155; +SERT-155 PO; +TRES1INJ SC
[2019-01-21] MEDS ORDERED: HYDR-4517 PO (14:39)
[2019-01-21] MEDS ORDERED: NS 1,000 ML IV ONE ×2 (14:45→18:15)
[2019-01-21] MEDS ORDERED: PROMETHAZINE INJ 25 MG/ML VIAL (J2550) IV ONE ×2 (14:45→16:45)
[2019-01-21] MEDS ORDERED: MORPHINE 2 MG/ML 1ML SYRINGE (J2270) IV ONE (15:30)
--- NOTE | 2019-01-21 15:35 | REP ---
Chest one-view HISTORY: Diabetic ketoacidosis Comparison: 01/03/2019 The lungs are clear. The heart is normal in size. The pulmonary vasculature is normal in appearance. Impression: No acute disease. Electronically Signed by Christiano Gan MD 01/21/2019 03:26 P
[2019-01-21 16:49] LABS: VENOUS BASE EXCESS -5.9 (-2.0-2.0); VENOUS HCO3 19.6 MEQ/L (23.0-27.0); VENOUS O2 SATURATION 99.4 % (60.0-80.0); VENOUS PARTIAL PRESSURE CO2 38.6 mmHg (38.0-50.0); VENOUS PARTIAL PRESSURE O2 228.4 mmHg (30.0-50.0); VENOUS PH 7.323 UNITS (7.330-7.430); VENOUS STANDARD HCO3 19.7 MEQ/L; VENOUS TOTAL CO2 20.8 MEQ/L (24.0-28.0)
[2019-01-21 16:53] LABS: BASO # 0.1 10^3/uL (0.0-0.2); BASO % 0.9 % (0.0-1.0); EOS % 0.5 % (0.0-3.0); HEMATOCRIT 38.8 % (36.0-47.0); HEMOGLOBIN 12.3 g/dl (12.0-15.5); LYMPH # 1.6 10^3/uL (1.5-4.5); LYMPH % 28.7 % (24.0-44.0); MEAN CORPUSCULAR HEMOGLOBIN 29.8 pg (27.0-33.0); MEAN CORPUSCULAR HGB CONC 31.7 g/dl (32.0-36.5); MEAN CORPUSCULAR VOLUME 93.9 fl (80.0-96.0); MONO # 0.2 10^3/uL (0.0-0.8); MONO % 4.3 % (0.0-5.0); NEUTROPHILS # 3.7 10^3/uL (1.8-7.7); NEUTROPHILS % 65.4 % (36.0-66.0); PLATELET COUNT, AUTOMATED 212 10^3/uL (150-450); RED BLOOD COUNT 4.13 10^6/uL (4.00-5.40); WHITE BLOOD COUNT 5.6 10^3/uL (4.0-10.0)
[2019-01-21 17:14] LABS: OSMOLALITY SERUM 325 MOSM/KG (275-295)
[2019-01-21 17:19] LABS: HCG, SERUM QUALITATIVE NEGATIVE (NEGATIVE)
[2019-01-21 17:33] LABS: HEMOGLOBIN A1c 13.8 %
[2019-01-21 17:56] LABS: ALBUMIN 3.5 GM/DL (3.2-5.2); ALT/SGPT 28 U/L (12-78); BILIRUBIN,DIRECT < 0.1 MG/DL (0.0-0.2); BILIRUBIN,TOTAL 0.3 MG/DL (0.2-1.0); BLOOD UREA NITROGEN 21 MG/DL (7-18); CALCIUM LEVEL 8.9 MG/DL (8.5-10.1); CARBON DIOXIDE LEVEL 21 MEQ/L (21-32); CHLORIDE LEVEL 102 MEQ/L (98-107); CPK CREATINE PHOSPHOKINASE 53 U/L (26-192); GLOMERULAR FILTRATION RATE > 60.0 (>58); GLUCOSE, FASTING 270 MG/DL (70-100); LIPASE 61 U/L (73-393); MAGNESIUM LEVEL 1.7 MG/DL (1.8-2.4); MB/CK RELATIVE INDEX 3.58 (< OR =4); PHOSPHORUS LEVEL 2.9 MG/DL (2.5-4.9); POTASSIUM SERUM 4.5 MEQ/L (3.5-5.1); SODIUM LEVEL 138 MEQ/L (136-145); TOTAL PROTEIN 8.5 GM/DL (6.4-8.2); TROPONIN I < 0.02 NG/ML (< 0.10)
[2019-01-21 17:57] LABS: ETHYL ALCOHOL (ETHANOL) < 0.003 % (0.000-0.010)
[2019-01-21 17:58] LABS: ACETONE/KETONE > 46.00 MG/DL (<2.81)
[2019-01-21] MEDS ORDERED: ISOVUE-370 76% 100ML VIAL (Q9967) As Ordered ONE (18:09)
--- NOTE | 2019-01-21 19:02 | REPVR ---
EXAM: CT Abdomen and Pelvis With Contrast EXAM DATE/TIME: 01/21/2019 6:15 PM CLINICAL HISTORY: 43 years old, female; Abdominal pain; Generalized TECHNIQUE: Imaging protocol: Axial computed tomography images of the abdomen and pelvis with intravenous contrast. Coronal and sagittal reformatted images were created and reviewed. Radiation optimization: All CT scans at this facility use at least one of these dose optimization techniques: automated exposure control; mA and/or kV adjustment per patient size (includes targeted exams where dose is matched to clinical indication); or iterative reconstruction. Contrast material: ISOVUE 370; Contrast volume: 100 ml; Contrast route: IV; COMPARISON: No relevant prior studies available. FINDINGS: Mediastinum: Low-density wall thickening of the distal esophagus. These changes may be seen with esophagitis as well as esophageal neoplasm. Further clinical evaluation is recommended. This may include upper GI and/or upper endoscopy. ABDOMEN: Liver: Unremarkable. No mass. Gallbladder and bile ducts: Unremarkable. No calcified stones. No ductal dilation. Pancreas: Unremarkable. No ductal dilation. Spleen: Unremarkable. No splenomegaly. Adrenals: Normal. No mass. Kidneys and ureters: Unremarkable. No stones. No hydronephrosis. Stomach and bowel: The small bowel and colon are unremarkable. No bowel obstruction. Appendix: No evidence of appendicitis. PELVIS: Bladder: Unremarkable as visualized. Reproductive: Unremarkable as visualized. ABDOMEN and PELVIS: Intraperitoneal space: Unremarkable. No free air. No significant fluid collection. Bones/joints: Dense sclerotic lesion within the right iliac bone consistent with bone island. No fracture. Soft tissues: Unremarkable. Vasculature: Mild atherosclerosis of the abdominal aorta. No aneurysm. Lymph nodes: Unremarkable. No enlarged lymph nodes. IMPRESSION: Low-density wall thickening of the distal esophagus. These changes may be seen with esophagitis as well as esophageal neoplasm. Further clinical evaluation is recommended. This may include upper GI and/or upper endoscopy. Electronically signed by: Dvaid Bailey On 01/21/2019 19:02:21 PM
[2019-01-21 19:05] LABS: VENOUS BASE EXCESS -9.5 (-2.0-2.0); VENOUS HCO3 16.2 MEQ/L (23.0-27.0); VENOUS O2 SATURATION 99.1 % (60.0-80.0); VENOUS PARTIAL PRESSURE CO2 34.7 mmHg (38.0-50.0); VENOUS PARTIAL PRESSURE O2 156.8 mmHg (30.0-50.0); VENOUS PH 7.286 UNITS (7.330-7.430); VENOUS STANDARD HCO3 16.9 MEQ/L; VENOUS TOTAL CO2 17.2 MEQ/L (24.0-28.0)
[2019-01-21] MEDS ORDERED: GI COCKTAIL 50ML BTL(HYOSCYAMINE/MAALOX/LIDOCAINE VISCOUS)(1:3:1) PO ONE (19:30)
[2019-01-21] MEDS ORDERED: HumaLOG INSULIN (NovoLOG) PER UNIT SC ONE (20:00)
[2019-01-21] MEDS ORDERED: OXYC15TA76 PO (20:38)
[2019-01-21] MEDS: HYDROMORPHONE HCL 0.5 MG/ 0.5 ML SYRINGE (J1170 PER 1) IV PRN (20:39)
[2019-01-21] MEDS: HumaLOG INSULIN (NovoLOG) PER UNIT SC SCH (21:00)
[2019-01-21] MEDS ORDERED: SODIUM CHLORIDE 0.9% 1000ML IV ONE (21:45)
[2019-01-21] MEDS ORDERED: dexameTHASONE 20 MG/5 ML VIAL (J1100) IV ONE (22:00)
[2019-01-21] MEDS ORDERED: DEXTROSE 50% 50 ML SYRINGE IV PRN (22:45)
[2019-01-21] MEDS ORDERED: NS 1,000 ML IV SCH (22:45)
[2019-01-21] MEDS ORDERED: GLUCAGON FOR INJ 1 MG VIAL (J1610) SC PRN (22:45)
[2019-01-21] MEDS ORDERED: ACETAMINOPHEN TAB 650MG DOSE (2X325MG) PO PRN (22:45)
[2019-01-21] MEDS ORDERED: GLUCOSE 4 GM CHEW TABLET PO PRN (22:45)
[2019-01-21] MEDS ORDERED: oxyCODONE 5MG TAB PO PRN (23:00)
[2019-01-21] MEDS ORDERED: diazePAM 2 MG TAB PO PRN (23:00)
[2019-01-21] MEDS ORDERED: HYDROcodone/APAP LIQUID 7.5-325MG 15ML UDC (LORTAB ELIXIR) PO PRN (23:00)
[2019-01-21 23:50] VITALS: BP 146/90
[2019-01-22] MEDS: ONDANSETRON 4MG/2ML VIAL (J2405) IV PRN ×3 (00:20→16:22)
[2019-01-22] MEDS: HYDROMORPHONE HCL 0.5 MG/ 0.5 ML SYRINGE (J1170 PER 1) IV PRN (00:20)
--- NOTE | 2019-01-22 01:32 | HPEPDOC ---
General Date of Admission Jan 21, 2019 at 20:39 Chief Complaint The patient is a 43-year-old female admitted with a reason for visit of Luis miller. History of Present Illness Date of service 01/21/19 Pt was seen and examined at bedside on at 10 pm on 01/21/2019 and this note was written after midnight on 01/22/2019 43 y/o F c/o worsening nausea, vomiting and diffuse abdominal pain for past 2 days, pt did not take her home insulin for past 2 days. In ER pt was found was found hemodynamically stable and was given NS bolus 2 liters, insulin, dilaudid, morphine and phenergan. Hospitalist service was consulted to admit the pt for further management. Pt was seen and examined at bedside in ER. Pt c/o nausea, diffuse abdominal pain Home Medications Scheduled Insulin Degludec (Tresiba Flextouch U-200) 200 Unit/1 Ml Insuln.pen, 42 UNIT SC DAILY, (Reported) Insulin Human Lispro (Novolog) 100 Unit/1 Ml Vial, 1 DOSE SC AC, (Reported) PER SLIDING SCALE Levetiracetam (Keppra) 1,000 Mg Tablet, 1,000 MG PO BID, (Reported) Omeprazole (Omeprazole) 10 Mg Capsule.dr, 10 MG PO DAILY, (Reported) Sertraline HCl (Sertraline HCl) 50 Mg Tablet, 50 MG PO DAILY, (Reported) Scheduled PRN Diazepam (Diazepam) 2 Mg Tablet, 2 MG PO TID PRN for ANXIETY, (Reported) Hydrocodone/Acetaminophen (Hydrocodone-Acetamin 10-325 mg) 1 Each Tablet, 1 TAB PO QID PRN for PAIN, (Reported) Oxycodone Hcl (Oxycodone HCl) 15 Mg Tablet, 15 MG PO Q4H PRN for PAIN, (Reported) Allergies Coded Allergies: ciprofloxacin (Verified Allergy, Unknown, 01/21/19) SKIN BLISTERS gabapentin (Verified Allergy, Unknown, 01/21/19) VERTIGO pregabalin (Verified Allergy, Unknown, 01/21/19) DIARRHEA vancomycin (Verified Allergy, Unknown, 01/21/19) SKIN BLISTERS Past Medical History Medical History DM type 1, chronic pain syndrome, nicotine dependence, marijuana abuse Family History reviewed non contributory Social History * Smoker: current smoker Alcohol: occationally Drugs: marijuana A-FIB/CHADSVASC A-FIB History Current/History of A-Fib/PAF?: No Current Oral Anticoagulant The: No Review of Systems Other systems 10 points review of system was performed and it was negative except as per HPI Physical Examination General Exam: Positive: Alert, Cooperative Eye Exam: Positive: PERRLA ENT Exam: Positive: Atraumatic Neck Exam: Positive: Supple Chest Exam: Positive: Clear to auscultation, Normal air movement Heart Exam: Positive: Rate Normal, Normal S1, Normal S2 Abdomen Exam: Positive: Normal bowel sounds, Soft Extremity Exam: Positive: Normal pulses Skin Exam: Positive: Nl turgor and temperature Neuro Exam: Positive: Normal Speech, Strength at 5/5 X4 ext, Cranial Nerves 3- 12 NL Psych Exam: Positive: Mental status NL, Oriented x 3 Other physical findings dry oral mucosa Vital Signs Vital Signs Date Time Temp Pulse Resp B/P (MAP) Pulse Ox O2 Delivery O2 Flow Rate FiO2 01/22/19 00:20 18 01/21/19 23:50 98.8 115 146/90 (108) 97 01/21/19 23:35 Room Air Laboratory Data Labs 24H Laboratory Tests 2 01/21/19 16:35: Immature Granulocyte % (Auto) 0.2, White Blood Count 5.6, Red Blood Count 4.13, Hemoglobin 12.3, Hematocrit 38.8, Mean Corpuscular Volume 93.9, Mean Corpuscular Hemoglobin 29.8, Mean Corpuscular Hemoglobin Concent 31.7L, Red Cell Distrib ution Width 13.4, Platelet Count 212, Neutrophils (%) (Auto) 65.4, Lymphocytes (%) (Auto) 28.7, Monocytes (%) (Auto) 4.3, Eosinophils (%) (Auto) 0.5, Basophils (%) (Auto) 0.9, Neutrophils # (Auto) 3.7, Lymphocytes # (Auto) 1.6, Monocytes # (Auto) 0.2, Eosinophils # (Auto) 0.0, Basophils # (Auto) 0.1, Nucleated Red Blood Cells % (auto) 0.0, Blood Gas Bicarbonate Standard 19.7, Venous Blood pH 7.323L, Venous Blood Partial Pressure CO2 38.6, Venous Blood Partial Pressure O2 228.4H, Venous Blood Total Carbon Dioxide 20.8L, Venous Blood HCO3 19.6L, Venous Blood Oxygen Saturation 99.4H, Venous Blood Base Excess -5.9L, Anion Gap 15, Glomerular Filtration Rate > 60.0, Estimated Mean Plasma Glucose 349H, Hemoglobin A1c 13.8, Osmolality 325H, Calcium Level 8.9, Phosphorus Level 2.9, Magnesium Level 1.7L, Aspartate Amino Transf (AST/SGOT) 35, Alanine Aminotransferase (ALT/SGPT) 28, Alkaline Phosphatase 131H, Total Bilirubin 0.3, Direct Bilirubin < 0.1, Total Creatine Kinase 53, Creatine Kinase MB 2.0, Creatine Kinase MB Relative Index 3.58, Troponin I < 0.02, Total Protein 8.5H, Albumin 3.5, Albumin/Globulin Ratio 0.70L, Lipase 61L, Human Chorionic Gonadotropin, Qual NEGATIVE, Ethyl Alcohol Level < 0.003, B-Hydroxybutyrate > 46.00H 01/21/19 18:46: Blood Gas Bicarbonate Standard 16.9, Venous Blood pH 7.286L, Venous Blood Partial Pressure CO2 34.7L, Venous Blood Partial Pressure O2 156.8H, Venous Blood Total Carbon Dioxide 17.2L, Venous Blood HCO3 16.2L, Venous Blood Oxygen Saturation 99.1H, Venous Blood Base Excess -9.5L 01/21/19 19:53: Bedside Glucose (Misc Panel) 256H 01/21/19 20:57: Bedside Glucose (Misc Panel) 232H CBC/BMP Laboratory Tests 01/21/19 16:35 Red Blood Count 4.13, Mean Corpuscular Volume 93.9, Mean Corpuscular Hemoglobin 29.8, Mean Corpuscular Hemoglobin Concent 31.7 L, Red Cell Distribution Width 13.4, Neutrophils (%) (Auto) 65.4, Lymphocytes (%) (Auto) 28.7, Monocytes (%) (Auto) 4.3, Eosinophils (%) (Auto) 0.5, Basophils (%) (Auto) 0.9, Neutrophils # (Auto) 3.7, Lymphocytes # (Auto) 1.6, Monocytes # (Auto) 0.2, Eosinophils # (Auto) 0.0, Basophils # (Auto) 0.1 Microbiology Microbiology 01/21/19 Blood Culture, Received Pending 01/21/19 Blood Culture, Received Pending Assessment/Plan 43 y/o F c/o nausea, vomiting, diffuse abdominal pain and was not taking her insulin at home. Labs and imaging studies reviewed. CT abdomen showed- Low-density wall thickening of the distal esophagus Chest x ray- no acute pathology Lipase not elevated Pt does not have Anion gap metabolic acidosis even though serum beta hydroxy butyrate is elevated- pt does not meet diagnostic criteria of DKA. will f/u repeat BMP. Impression- nausea/vomiting/abdominal pain unclear etiology, might be related to questionable viral gastritis or marijuana abuse Problems (1) Nausea & vomiting Status: Acute Problem Text: might be related to viral gastritis of marijuana abuse ivf NS, iv zofran, (2) Nicotine dependence Status: Chronic Problem Text: pt was counselled about smoking cessation (3) Marijuana abuse Status: Chronic Problem Text: pt was counselled (4) Uncontrolled diabetes mellitus Status: Acute Problem Text: ISS and home meds medical compliance was reinforced (5) Seizure Status: Chronic Problem Text: home meds (6) Chronic pain Status: Chronic Problem Text: home meds (7) Esophageal thickening Problem Text: incidental finding of distal esophageal thickening on CT if pt remain symptomatic will consider inhouse GI eval. Plan / VTE VTE Prophylaxis Ordered?: Yes SANDRA DIANE MD January 22, 2019 01:32
[2019-01-22] MEDS ORDERED: MAG SULF 1GM/100ML (MAG RUN) 1 GM in APPROPRIATE DILUENT 1 EA IV ONE (02:45)
[2019-01-22] MEDS: NS 0.45% 1,000 ML IV SCH ×2 (03:26→11:30)
--- NOTE | 2019-01-22 05:52 | ECGEPIP ---
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
[2019-01-22 06:00] VITALS: BP 137/95
[2019-01-22] MEDS: HEPARIN SOD (PORCINE) 5000 UNITS/ML VIAL SC SCH ×3 (06:00→21:33)
[2019-01-22] MEDS: HumaLOG INSULIN (NovoLOG) PER UNIT SC SCH ×4 (07:30→20:33)
[2019-01-22] MEDS: SERTRALINE HCL 50 MG TAB PO SCH ×2 (09:00→09:32)
[2019-01-22] MEDS: levETIRAcetam 250MG TABLET (KEPPRA) PO SCH ×3 (09:00→21:33)
[2019-01-22] MEDS: OMEPRAZOLE 20 MG CAP PO SCH ×2 (09:00→09:32)
[2019-01-22] MEDS: LEVEMIR (INSULIN DETEMIR) 1 UNITS/0.01ML SC SCH (09:00)
[2019-01-22] MEDS ORDERED: ENTER DRUG NAME HERE (PATIENT'S OWN MED) SC SCH (09:00)
[2019-01-22] MEDS ORDERED: PROMETHAZINE INJ 25 MG/ML VIAL (J2550) IV PRN (09:45)
[2019-01-22 10:59] LABS: HEMATOCRIT 36.5 % (36.0-47.0); HEMOGLOBIN 11.7 g/dl (12.0-15.5); MEAN CORPUSCULAR HEMOGLOBIN 30.6 pg (27.0-33.0); MEAN CORPUSCULAR HGB CONC 32.1 g/dl (32.0-36.5); MEAN CORPUSCULAR VOLUME 95.5 fl (80.0-96.0); PLATELET COUNT, AUTOMATED 235 10^3/uL (150-450); RED BLOOD COUNT 3.82 10^6/uL (4.00-5.40); WHITE BLOOD COUNT 9.9 10^3/uL (4.0-10.0)
[2019-01-22] MEDS: METOCLOPRAMIDE INJ 10MG/2ML VIAL (J2765) IV SCH ×3 (11:30→20:32)
[2019-01-22] MEDS: MORPHINE 4 MG/ML 1ML VIAL/SYRINGE (J2270) IV PRN ×3 (11:30→20:34)
[2019-01-22 11:33] LABS: ALBUMIN 3.2 GM/DL (3.2-5.2); ALT/SGPT 20 U/L (12-78); BILIRUBIN,TOTAL 0.4 MG/DL (0.2-1.0); BLOOD UREA NITROGEN 17 MG/DL (7-18); CALCIUM LEVEL 8.3 MG/DL (8.5-10.1); CARBON DIOXIDE LEVEL 14 MEQ/L (21-32); CHLORIDE LEVEL 106 MEQ/L (98-107); CREATININE FOR GFR 0.97 MG/DL (0.55-1.30); FREE T4 1.07 NG/DL (0.76-1.46); GLOMERULAR FILTRATION RATE > 60.0 (>58); GLUCOSE, FASTING 279 MG/DL (70-100); POTASSIUM SERUM 4.1 MEQ/L (3.5-5.1); SODIUM LEVEL 138 MEQ/L (136-145); THYROID STIMULATING HORMONE 0.261 uIU/ML (0.358-3.740); TOTAL PROTEIN 7.4 GM/DL (6.4-8.2)
[2019-01-22] MEDS: LR 1,000 ML IV SCH ×2 (13:05→20:32)
--- NOTE | 2019-01-22 13:52 | IPNPDOC ---
Subjective Date Seen The patient was seen on 01/22/19. Subjective Chief Complaint/HPI Patient seen and examined at the bedside. Reports continued intractable nausea. States that she has not been able to keep anything down for days due to the same. Denies any fevers, chills, chest pain, palpitations. However, does report having multiple sick contacts with similar symptoms. Objective Physical Examination General Exam: Positive: Alert, Cooperative, Mild Distress (2/2 intractable nausea) ENT Exam: Positive: Atraumatic; Negative: Mucous membr. moist/pink (dry mucous membranes) Chest Exam: Positive: Clear to auscultation, Normal air movement Heart Exam: Positive: Rate Normal, Normal S1, Normal S2 Abdomen Exam: Positive: Normal bowel sounds, Soft (nondistended), Tenderness (mild tenderness to deep palpation diffusely. No rebound tenderness, guarding, or rigidity noted.) Extremity Exam: Negative: Tenderness, Swelling Neuro Exam: Positive: Normal Speech, Strength at 5/5 X4 ext Psych Exam: Positive: Mental status NL, Oriented x 3 A-FIB/CHADSVASC A-FIB History Current/History of A-Fib/PAF?: No Assessment /Plan Plan/VTE VTE Prophylaxis Ordered?: Yes Plan Intractable Nausea/Vomiting possibly 2/2 Viral Gastroenteritis Patient endorses having multiple recent sick contacts with similar symptoms Possibly cyclic vomiting syndrome from Cannabis use? Ct Abd/pel with no signs of intestinal obstruction Cont antiemetics, analgesic therapy IVF Hydration ordered Cont supportive care Anion gap metabolic acidosis Likely secondary to dehydration, volume depletion We will continue IV fluid hydration Repeat BMP this evening-- we will consider adding sodium bicarbonate to IV fluids Low Intensity wall thickening in Distal Esophagus Esophagitis vs Possible underlying Esophageal Neoplasm Patient does endorse 40lbs unintentional weight loss over the past 1 year. However, this could be attributed to the patient's underlying uncontrolled type 1 diabetes She denies any dysphagia at this time I discussed these findings with the patient at length, and she is amenable to having a scope done for further evaluation. Case discussed with GI--we will tentatively schedule the patient for an EGD on Sunday Uncontrolled Type 1 DM No evidence of DKA at this time--as the patient has had multiple episodes similar in the past We will cont current insulin regimen Anxiety/depression Continue sertraline History of seizure disorder Continue Keppra GERD Continue PPI DVT prophylaxis Lovenox subcutaneous VS, I&O, 24H, Fishbone Vital Signs/I&O Vital Signs Date Time Temp Pulse Resp B/P (MAP) Pulse Ox O2 Delivery O2 Flow Rate FiO2 01/22/19 12:01 18 01/22/19 06:00 98.5 114 137/95 (109) 98 01/21/19 23:35 Room Air I&O- Last 24 Hours up to 6 AM 01/22/19 06:00 Intake Total 1897 ml Output Total 0 ml Balance 1897 ml Laboratory Data 24H LABS Laboratory Tests 2 01/21/19 14:24: Bedside Glucose (Misc Panel) 289H 01/21/19 16:35: Immature Granulocyte % (Auto) 0.2, White Blood Count 5.6, Red Blood Count 4.13, Hemoglobin 12.3, Hematocrit 38.8, Mean Corpuscular Volume 93.9, Mean Corpuscular Hemoglobin 29.8, Mean Corpuscular Hemoglobin Concent 31.7L, Red Cell Distribution Width 13.4, Platelet Count 212, Neutrophils (%) (Auto) 65.4, Lymph ocytes (%) (Auto) 28.7, Monocytes (%) (Auto) 4.3, Eosinophils (%) (Auto) 0.5, Basophils (%) (Auto) 0.9, Neutrophils # (Auto) 3.7, Lymphocytes # (Auto) 1.6, Monocytes # (Auto) 0.2, Eosinophils # (Auto) 0.0, Basophils # (Auto) 0.1, Nucleated Red Blood Cells % (auto) 0.0, Blood Gas Bicarbonate Standard 19.7, Venous Blood pH 7.323L, Venous Blood Partial Pressure CO2 38.6, Venous Blood Partial Pressure O2 228.4H, Venous Blood Total Carbon Dioxide 20.8L, Venous Blood HCO3 19.6L, Venous Blood Oxygen Saturation 99.4H, Venous Blood Base Excess -5.9L, Anion Gap 15, Glomerular Filtration Rate > 60.0, Estimated Mean Plasma Glucose 349H, Hemoglobin A1c 13.8, Osmolality 325H, Calcium Level 8.9, Phosphorus Level 2.9, Magnesium Level 1.7L, Aspartate Amino Transf (AST/SGOT) 35, Alanine Aminotransferase (ALT/SGPT) 28, Alkaline Phosphatase 131H, Total Bilirubin 0.3, Direct Bilirubin < 0.1, Total Creatine Kinase 53, Creatine Kinase MB 2.0, Creatine Kinase MB Relative Index 3.58, Troponin I < 0.02, Total Protein 8.5H, Albumin 3.5, Albumin/Globulin Ratio 0.70L, Lipase 61L, Human Chorionic Gonadotropin, Qual NEGATIVE, Ethyl Alcohol Level < 0.003, B-Hydroxybutyrate > 46.00H 01/21/19 18:46: Blood Gas Bicarbonate Standard 16.9, Venous Blood pH 7.286L, Venous Blood Partial Pressure CO2 34.7L, Venous Blood Partial Pressure O2 156.8H, Venous Blood Total Carbon Dioxide 17.2L, Venous Blood HCO3 16.2L, Venous Blood Oxygen Saturation 99.1H, Venous Blood Base Excess -9.5L 01/21/19 19:53: Bedside Glucose (Misc Panel) 256H 01/21/19 20:57: Bedside Glucose (Misc Panel) 232H 01/22/19 10:36: Nucleated Red Blood Cells % (auto) 0.0, Anion Gap 18H, Glomerular Filtration Rate > 60.0, Blood Urea Nitrogen 17, Creatinine 0.97, Sodium Level 138, Potassium Level 4.1, Chloride Level 106, Carbon Dioxide Level 14L, Calcium Level 8.3L, Aspartate Amino Transf (AST/SGOT) 12, Alanine Aminotransferase (ALT/SGPT) 20, Alkaline Phosphatase 112, Total Bilirubin 0.4, Total Protein 7.4, Albumin 3.2, Albumin/Globulin Ratio 0.76L, Thyroid Stimulating Hormone (TSH) 0.261L, Free Thyroxine 1.07 01/22/19 11:51: Bedside Glucose (Misc Panel) 259H 01/22/19 13:00: Lactic Acid Level 0.9 CBC/BMP Laboratory Tests 01/21/19 16:35 Red Blood Count 4.13, Mean Corpuscular Volume 93.9, Mean Corpuscular Hemoglobin 29.8, Mean Corpuscular Hemoglobin Concent 31.7 L, Red Cell Distribution Width 13.4, Neutrophils (%) (Auto) 65.4, Lymphocytes (%) (Auto) 28.7, Monocytes (%) (Auto) 4.3, Eosinophils (%) (Auto) 0.5, Basophils (%) (Auto) 0.9, Neutrophils # (Auto) 3.7, Lymphocytes # (Auto) 1.6, Monocytes # (Auto) 0.2, Eosinophils # (Auto) 0.0, Basophils # (Auto) 0.1 01/22/19 10:36 Red Blood Count 3.82 L, Mean Corpuscular Volume 95.5, Mean Corpuscular Hemoglobin 30.6, Mean Corpuscular Hemoglobin Concent 32.1, Red Cell Distribution Width 13.4, Calcium Level 8.3 L, Aspartate Amino Transf (AST/SGOT) 12, Alanine Aminotransferase (ALT/SGPT) 20, Alkaline Phosphatase 112, Total Bilirubin 0.4, Total Protein 7.4, Albumin 3.2 Microbiology Microbiology 01/21/19 Blood Culture, Received Pending 01/21/19 Blood Culture, Received Pending RAFY RITTER MD January 22, 2019 13:52
[2019-01-22 14:00] VITALS: BP 130/77
[2019-01-22 18:38] LABS: BLOOD UREA NITROGEN 16 MG/DL (7-18); CALCIUM LEVEL 8.5 MG/DL (8.5-10.1); CARBON DIOXIDE LEVEL 15 MEQ/L (21-32); CHLORIDE LEVEL 109 MEQ/L (98-107); CREATININE FOR GFR 1.04 MG/DL (0.55-1.30); GLOMERULAR FILTRATION RATE > 60.0 (>58); GLUCOSE, FASTING 272 MG/DL (70-100); POTASSIUM SERUM 4.3 MEQ/L (3.5-5.1); SODIUM LEVEL 139 MEQ/L (136-145)
[2019-01-22] MEDS: ANEXSIA, NORCO 7.5MG/325MG TABLET(HYDROCODONE/APAP) PO PRN (21:31)
[2019-01-22 22:00] VITALS: BP 124/72
[2019-01-23] MEDS: MORPHINE 4 MG/ML 1ML VIAL/SYRINGE (J2270) IV PRN ×5 (01:48→20:01)
[2019-01-23] MEDS: LR 1,000 ML IV SCH ×3 (04:00→20:09)
[2019-01-23 06:00] VITALS: BP 125/81
[2019-01-23] MEDS: HEPARIN SOD (PORCINE) 5000 UNITS/ML VIAL SC SCH ×3 (06:00→21:23)
[2019-01-23] MEDS: ONDANSETRON 4MG/2ML VIAL (J2405) IV PRN (06:41)
[2019-01-23 08:01] LABS: HEMATOCRIT 39.4 % (36.0-47.0); HEMOGLOBIN 12.2 g/dl (12.0-15.5); MEAN CORPUSCULAR HEMOGLOBIN 30.3 pg (27.0-33.0); MEAN CORPUSCULAR VOLUME 97.8 fl (80.0-96.0); RED BLOOD COUNT 4.03 10^6/uL (4.00-5.40); WHITE BLOOD COUNT 8.1 10^3/uL (4.0-10.0)
[2019-01-23 08:02] LABS: PLATELET COUNT, AUTOMATED 234 10^3/uL (150-450)
[2019-01-23] MEDS: METOCLOPRAMIDE INJ 10MG/2ML VIAL (J2765) IV SCH ×4 (08:07→20:01)
[2019-01-23] MEDS: HumaLOG INSULIN (NovoLOG) PER UNIT SC SCH ×4 (08:08→20:31)
[2019-01-23] MEDS: levETIRAcetam 250MG TABLET (KEPPRA) PO SCH ×2 (08:08→20:01)
[2019-01-23] MEDS: SERTRALINE HCL 50 MG TAB PO SCH (08:08)
[2019-01-23] MEDS: OMEPRAZOLE 20 MG CAP PO SCH (08:08)
[2019-01-23 08:23] LABS: CREATININE FOR GFR 1.14 MG/DL (0.55-1.30); GLOMERULAR FILTRATION RATE 55.9 (>58); MAGNESIUM LEVEL 1.9 MG/DL (1.8-2.4); POTASSIUM SERUM 4.5 MEQ/L (3.5-5.1)
--- NOTE | 2019-01-23 09:58 | CR ---
DATE OF CONSULTATION: 01/22/2019 This is a 43-year-old white female admitted to [facility] for apparent frequent bouts of abdominal pain and intractable nausea and vomiting. The patient apparently has had episodes of nausea and vomiting for the past 2 days. The patient was given intravenous (IV) fluids and medications and was admitted to the hospital for rehydration and attempts to control bouts of abdominal pain, nausea, and vomiting. The patient has been a chronic diabetic since her early 20s. She has been peripheral neuropathy. The patient uses marijuana, smokes cigarettes, and has chronic pain syndrome. MEDICATIONS AT HOME: Medications include: - omeprazole - sertraline - keppra - insulin ALLERGIES: To CIPRO, GABAPENTIN, PREGABALIN, VANCOMYCIN. PAST MEDICAL HISTORY: Again is positive for type 1 diabetes since early 20s, chronic pain syndrome, nicotine dependence. REVIEW OF SYSTEMS: Noncontributory. SOCIAL HISTORY: Cigarettes positive, alcohol occasionally, and marijuana occasionally. A 10-point review of systems was noncontributory to the consultation. PHYSICAL EXAMINATION: General: A well-developed, well-nourished white female, not feeling well. Chest is clear to auscultation. Cardiovascular examination showed regular rhythm. No murmurs. No gallops. Normal physiological split S1-S2. Abdomen: Soft. Slight upper abdominal tenderness. No hepatosplenomegaly. Bowel sounds positive. Extremities: No cyanosis, clubbing, edema. Homans negative. LABORATORY STUDIES: On this admission includes: Complete blood count (CBC), which on admission showed a white count of 5600, hemoglobin and hematocrit of 12 and 38. The patient's chemistry on admission showed a BUN of 21, creatinine was 1. The patient's liver profile was normal. The patient is not . Albumin was 3.5. Toxicology studies were performed. The patient's alcohol levels were negative. IMAGING STUDIES: On admission again include abdominal CT scan on 01/21/2019, which was performed for the nausea, vomiting, and abdominal pain. Interpretation of the abdominal CT with comparison to previous studies showed some mild low-density thickening of the distal esophagus, which may be either esophagitis. However, the radiologist is suggesting upper endoscopy due to the rare possibility of esophageal neoplasm. PLAN: 1. Set the patient up for upper endoscopy for Sunday. 2. The patient's bouts of nausea and vomiting are consistent with diabetic gastroparesis.
[2019-01-23] MEDS: LEVEMIR (INSULIN DETEMIR) 1 UNITS/0.01ML SC SCH (10:26)
--- NOTE | 2019-01-23 12:25 | IPNPDOC ---
Subjective Date Seen The patient was seen on 01/23/19. Subjective Chief Complaint/HPI Patient seen and examined the bedside. She reports that she is feeling much better today and that her abdominal pain is improved. She did order breakfast this morning, and states that she is going to try to eat and see how she feels. States that her nausea is also improved, and she has had one episode of vomiting last night. Objective Physical Examination General Exam: Positive: Alert, Cooperative, No Acute Distress ENT Exam: Positive: Atraumatic, Mucous membr. moist/pink Chest Exam: Positive: Clear to auscultation, Normal air movement Heart Exam: Positive: Rate Normal, Normal S1, Normal S2 Abdomen Exam: Positive: Soft (nondistended), Tenderness (mild tenderness to deep palpation diffusely. No rebound tenderness, guarding, or rigidity noted.) Extremity Exam: Negative: Tenderness, Swelling Neuro Exam: Positive: Normal Speech Psych Exam: Positive: Mental status NL, Oriented x 3 Assessment /Plan Plan/VTE VTE Prophylaxis Ordered?: Yes Plan Intractable Nausea/Vomiting possibly 2/2 Viral Gastroenteritis Patient endorses having multiple recent sick contacts with similar symptoms Likely with underlying diabetic gastroparesis, Possible underlying cyclic vomiting syndrome from Cannabis use? Ct Abd/pel with no signs of intestinal obstruction Cont antiemetics, analgesic therapy Continue IV fluid hydration Patient with improved nausea and abdominal pain this morning. By mouth diet encouraged, we will continue to monitor Non-anion gap metabolic acidosis 2/2 Above Likely secondary to dehydration, volume depletion We will continue IV fluid hydration Repeat BMP this evening-- we will consider adding sodium bicarbonate to IV fluids if her serum bicarbonate remains low Low Intensity wall thickening in Distal Esophagus Esophagitis vs Possible underlying Esophageal Neoplasm Patient does endorse 40lbs unintentional weight loss over the past 1 year. However, this could be attributed to the patient's underlying uncontrolled type 1 diabetes She denies any dysphagia at this time I discussed these findings with the patient at length, and she is amenable to having a scope done for further evaluation. Case discussed with GI--we will tentatively schedule the patient for an EGD on Sunday Uncontrolled Type 1 DM No evidence of DKA at this time--as the patient has had multiple episodes similar in the past We will cont current insulin regimen Anxiety/depression Continue sertraline History of seizure disorder Continue Keppra GERD Continue PPI DVT prophylaxis Lovenox subcutaneous VS, I&O, 24H, Fishbone Vital Signs/I&O Vital Signs Date Time Temp Pulse Resp B/P (MAP) Pulse Ox O2 Delivery O2 Flow Rate FiO2 01/23/19 11:29 18 01/23/19 06:00 97.9 107 125/81 (96) 98 01/21/19 23:35 Room Air I&O- Last 24 Hours up to 6 AM 01/23/19 06:00 Intake Total 1920 ml Output Total 1800 ml Balance 120 ml Laboratory Data 24H LABS Laboratory Tests 2 01/22/19 13:00: Lactic Acid Level 0.9 01/22/19 17:39: Bedside Glucose (Misc Panel) 262H 01/22/19 18:01: Anion Gap 15, Glomerular Filtration Rate > 60.0, Blood Urea Nitrogen 16, Creatinine 1.04, Sodium Level 139, Potassium Level 4.3, Chloride Level 109H, Carbon Dioxide Level 15L, Calcium Level 8.5 01/22/19 20:07: Bedside Glucose (Misc Panel) 277H 01/23/19 06:35: Bedside Glucose (Misc Panel) 308H 01/23/19 07:41: Nucleated Red Blood Cells % (auto) 0.0, Anion Gap 15, Glomerular Filtration Rate 55.9L, Blood Urea Nitrogen 16, Creatinine 1.14, Sodium Level 138, Potassium Level 4.5, Chloride Level 109H, Carbon Dioxide Level 14L, Calcium Level 9.0, Magnesium Level 1.9 CBC/BMP Laboratory Tests 01/22/19 18:01 Calcium Level 8.5 01/23/19 07:41 Calcium Level 9.0, Red Blood Count 4.03, Mean Corpuscular Volume 97.8 H, Mean Corpuscular Hemoglobin 30.3, Mean Corpuscular Hemoglobin Concent 31.0 L, Red Cell Distribution Width 13.7 Microbiology Microbiology 01/21/19 Blood Culture - Preliminary, Resulted No growth after 24 hours . All specim... 01/21/19 Blood Culture - Preliminary, Resulted No growth after 24 hours . All specim... RAFY RITTER MD January 23, 2019 12:25
[2019-01-23 14:00] VITALS: BP 122/76
[2019-01-23 17:36] LABS: BLOOD UREA NITROGEN 14 MG/DL (7-18); CALCIUM LEVEL 8.8 MG/DL (8.5-10.1); CARBON DIOXIDE LEVEL 22 MEQ/L (21-32); CHLORIDE LEVEL 111 MEQ/L (98-107); CREATININE FOR GFR 0.95 MG/DL (0.55-1.30); GLOMERULAR FILTRATION RATE > 60.0 (>58); GLUCOSE, FASTING 160 MG/DL (70-100); POTASSIUM SERUM 3.7 MEQ/L (3.5-5.1); SODIUM LEVEL 137 MEQ/L (136-145)
[2019-01-23 22:00] VITALS: BP 117/77
[2019-01-24] MEDS: MORPHINE 4 MG/ML 1ML VIAL/SYRINGE (J2270) IV PRN ×2 (02:36→06:47)
[2019-01-24] MEDS: ANEXSIA, NORCO 7.5MG/325MG TABLET(HYDROCODONE/APAP) PO PRN ×3 (04:49→20:19)
[2019-01-24] MEDS: HEPARIN SOD (PORCINE) 5000 UNITS/ML VIAL SC SCH ×3 (05:02→22:00)
[2019-01-24 05:42] LABS: HEMATOCRIT 35.6 % (36.0-47.0); HEMOGLOBIN 11.7 g/dl (12.0-15.5); MEAN CORPUSCULAR HEMOGLOBIN 30.2 pg (27.0-33.0); MEAN CORPUSCULAR HGB CONC 32.9 g/dl (32.0-36.5); MEAN CORPUSCULAR VOLUME 91.8 fl (80.0-96.0); PLATELET COUNT, AUTOMATED 221 10^3/uL (150-450); RED BLOOD COUNT 3.88 10^6/uL (4.00-5.40); WHITE BLOOD COUNT 10.5 10^3/uL (4.0-10.0)
[2019-01-24 06:00] VITALS: BP 129/86
[2019-01-24 06:07] LABS: BLOOD UREA NITROGEN 10 MG/DL (7-18); CALCIUM LEVEL 8.6 MG/DL (8.5-10.1); CARBON DIOXIDE LEVEL 24 MEQ/L (21-32); CHLORIDE LEVEL 111 MEQ/L (98-107); CREATININE FOR GFR 0.72 MG/DL (0.55-1.30); GLOMERULAR FILTRATION RATE > 60.0 (>58); GLUCOSE, FASTING 60 MG/DL (70-100); MAGNESIUM LEVEL 1.6 MG/DL (1.8-2.4); POTASSIUM SERUM 3.3 MEQ/L (3.5-5.1); SODIUM LEVEL 141 MEQ/L (136-145)
[2019-01-24] MEDS: METOCLOPRAMIDE INJ 10MG/2ML VIAL (J2765) IV SCH ×4 (07:30→20:18)
[2019-01-24] MEDS: HumaLOG INSULIN (NovoLOG) PER UNIT SC SCH ×4 (07:30→21:00)
[2019-01-24] MEDS: OMEPRAZOLE 20 MG CAP PO SCH (09:16)
[2019-01-24] MEDS: levETIRAcetam 250MG TABLET (KEPPRA) PO SCH ×2 (09:17→20:18)
[2019-01-24] MEDS: SERTRALINE HCL 50 MG TAB PO SCH (09:17)
[2019-01-24] MEDS: LR 1,000 ML IV SCH ×3 (11:34→21:30)
--- NOTE | 2019-01-24 11:49 | IPNPDOC ---
Subjective Date Seen The patient was seen on 01/24/19. Subjective Chief Complaint/HPI Patient seen and examined at bedside. No acute overnight events noted. The patient states that her nausea and abdominal pain have significantly improved. She is scheduled for an EGD with GI today. Objective Physical Examination General Exam: Positive: Alert, Cooperative, No Acute Distress ENT Exam: Positive: Atraumatic, Mucous membr. moist/pink Chest Exam: Positive: Clear to auscultation, Normal air movement Heart Exam: Positive: Rate Normal, Normal S1, Normal S2 Abdomen Exam: Positive: Soft (nondistended), Tenderness (mild tenderness to deep palpation diffusely. No rebound tenderness, guarding, or rigidity noted.) Extremity Exam: Negative: Tenderness, Swelling Neuro Exam: Positive: Normal Speech Psych Exam: Positive: Mental status NL, Oriented x 3 A-FIB/CHADSVASC A-FIB History Current/History of A-Fib/PAF?: No Assessment /Plan Plan/VTE VTE Prophylaxis Ordered?: Yes Plan Intractable Nausea/Vomiting possibly 2/2 Viral Gastroenteritis, Underlying Gastroparesis Patient endorses having multiple recent sick contacts with similar symptoms Likely with underlying diabetic gastroparesis, Possible underlying cyclic vomiting syndrome from Cannabis use? Ct Abd/pel with no signs of intestinal obstruction Cont antiemetics, analgesic therapy Continue IV fluid hydration Patient with improved nausea and abdominal pain this morning. Scheduled for EGD this AM with GI Non-anion gap metabolic acidosis 2/2 Above, resolved Low Intensity wall thickening in Distal Esophagus Esophagitis vs Possible underlying Esophageal Neoplasm Patient does endorse 40lbs unintentional weight loss over the past 1 year. However, this could be attributed to the patient's underlying uncontrolled type 1 diabetes She denies any dysphagia at this time I discussed these findings with the patient at length, and she is amenable to having a scope done for further evaluation. Patient scheduled for an EGD Today Uncontrolled Type 1 DM No evidence of DKA at this time--as the patient has had multiple episodes similar in the past We will cont current insulin regimen Anxiety/depression Continue sertraline History of seizure disorder Continue Keppra GERD Continue PPI DVT prophylaxis Lovenox subcutaneous Dispo--pending clinical improvement, EGD today by GI VS, I&O, 24H, Fishbone Vital Signs/I&O Vital Signs Date Time Temp Pulse Resp B/P (MAP) Pulse Ox O2 Delivery O2 Flow Rate FiO2 01/24/19 06:47 16 01/24/19 06:00 96.8 88 129/86 (100) 98 01/21/19 23:35 Room Air I&O- Last 24 Hours up to 6 AM 01/24/19 06:00 Intake Total 1860 ml Output Total 3850 ml Balance -1990 ml Laboratory Data 24H LABS Laboratory Tests 2 01/23/19 14:15: Bedside Glucose (Misc Panel) 161H 01/23/19 16:56: Anion Gap 4L, Glomerular Filtration Rate > 60.0, Blood Urea Nitrogen 14, Cre atinine 0.95, Sodium Level 137, Potassium Level 3.7, Chloride Level 111H, Carbon Dioxide Level 22, Calcium Level 8.8 01/23/19 17:08: Bedside Glucose (Misc Panel) 149H 01/23/19 20:19: Bedside Glucose (Misc Panel) 159H 01/24/19 05:01: Nucleated Red Blood Cells % (auto) 0.0, Anion Gap 6L, Glomerular Filtration Rate > 60.0, Blood Urea Nitrogen 10, Creatinine 0.72, Sodium Level 141, Potassium Level 3.3L, Chloride Level 111H, Carbon Dioxide Level 24, Calcium Level 8.6, Magnesium Level 1.6L 01/24/19 06:46: Bedside Glucose (Misc Panel) 111H CBC/BMP Laboratory Tests 01/23/19 16:56 Calcium Level 8.8 01/24/19 05:01 Calcium Level 8.6, Red Blood Count 3.88 L, Mean Corpuscular Volume 91.8, Mean Corpuscular Hemoglobin 30.2, Mean Corpuscular Hemoglobin Concent 32.9, Red Cell Distribution Width 13.5 Microbiology Microbiology 01/21/19 Blood Culture - Preliminary, Resulted No Growth after 48 hours. All Specime... 01/21/19 Blood Culture - Preliminary, Resulted No Growth after 48 hours. All Specime... RAFY RITTER MD January 24, 2019 11:49
[2019-01-24] MEDS ORDERED: LIDOCAINE 2% INJ 100 MG/5 ML SDV (FOR ANES.) As Ordered ONE (15:10)
[2019-01-24] MEDS ORDERED: PROPOFOL 200 MG/20 ML VIAL As Ordered ONE (15:10)
[2019-01-24] MEDS ORDERED: fentaNYL 100 MCG/2 ML INJECTION (J3010) As Ordered ONE (15:11)
--- NOTE | 2019-01-24 15:51 | ROOR ---
Patient Name: Leticia De Santiago Procedure Date: 01/24/2019 3:25 PM Date of : 1975 Age: 43 Room: [facility] Gender: Female Note Status: Finalized Procedure: Upper GI endoscopy Indications: Nausea with vomiting Providers: Lc Garrido MD Referring MD: Marcial Brown MD Requesting Provider: Medicines: Monitored Anesthesia Care Complications: No immediate complications. Procedure: Pre-Anesthesia Assessment: - The heart rate, respiratory rate, oxygen saturations, blood pressure, adequacy of pulmonary ventilation, and response to care were monitored throughout the procedure. The Endoscope was introduced through the mouth, and advanced to the second part of duodenum. The upper GI endoscopy was accomplished without difficulty. The patient tolerated the procedure well. Findings: The Z-line was regular and was found 40 cm from the incisors. Moderately severe esophagitis with no bleeding was found 30 cm from the incisors. No other significant abnormalities were identified in a careful examination of the stomach. Multiple localized erosions without bleeding were found in the first portion of the duodenum. The exam was otherwise without abnormality. Impression: - Z-line regular, 40 cm from the incisors. - Moderately severe reflux esophagitis. - Duodenal erosions without bleeding. - The examination was otherwise normal. - No specimens collected. - The examination was otherwise normal. Recommendation: - Patient has a contact number available for emergencies. The signs and symptoms of potential delayed complications were discussed with the patient. Return to normal activities tomorrow. Written discharge instructions were provided to the patient. - Return patient to hospital [facility] for ongoing care. - Use Protonix (pantoprazole) 40 mg PO BID. - Use sucralfate tablets 1 gram PO QID. - The findings and recommendations were discussed with the referring physician. Lc Garrido MD Lc Garrido MD 01/24/2019 3:51:10 PM Electronically signed by Lc Garrido MD Number of Addenda: 0 Note Initiated On: 01/24/2019 3:25 PM Estimated Blood Loss: Estimated blood loss: none.
[2019-01-24] MEDS: SUCRALFATE 1 GM TAB PO SCH ×2 (18:08→20:18)
[2019-01-24] MEDS: PANTOPRAZOLE 40MG TAB (PROTONIX) PO SCH (18:08)
[2019-01-24 22:00] VITALS: BP 141/88
[2019-01-24] MEDS ORDERED: GI COCKTAIL 50ML BTL(HYOSCYAMINE/MAALOX/LIDOCAINE VISCOUS)(1:3:1) PO ONE (22:30)
[2019-01-24] MEDS ORDERED: SIMETHICONE 80 MG CHEW TAB PO ONE (22:30)
[2019-01-25] MEDS: ANEXSIA, NORCO 7.5MG/325MG TABLET(HYDROCODONE/APAP) PO PRN ×2 (02:19→09:12)
[2019-01-25] MEDS: LR 1,000 ML IV SCH (05:15)
[2019-01-25 05:44] LABS: HEMATOCRIT 32.3 % (36.0-47.0); HEMOGLOBIN 10.8 g/dl (12.0-15.5); MEAN CORPUSCULAR HGB CONC 33.4 g/dl (32.0-36.5); MEAN CORPUSCULAR VOLUME 89.7 fl (80.0-96.0); PLATELET COUNT, AUTOMATED 194 10^3/uL (150-450); WHITE BLOOD COUNT 4.8 10^3/uL (4.0-10.0)
[2019-01-25 06:00] VITALS: BP 117/76
[2019-01-25] MEDS: HEPARIN SOD (PORCINE) 5000 UNITS/ML VIAL SC SCH ×4 (06:00→20:58)
[2019-01-25 06:21] LABS: BLOOD UREA NITROGEN 7 MG/DL (7-18); CARBON DIOXIDE LEVEL 26 MEQ/L (21-32); CHLORIDE LEVEL 103 MEQ/L (98-107); CREATININE FOR GFR 0.68 MG/DL (0.55-1.30); GLOMERULAR FILTRATION RATE > 60.0 (>58); GLUCOSE, FASTING 437 MG/DL (70-100); MAGNESIUM LEVEL 1.7 MG/DL (1.8-2.4); POTASSIUM SERUM 3.8 MEQ/L (3.5-5.1); SODIUM LEVEL 135 MEQ/L (136-145)
[2019-01-25] MEDS: METOCLOPRAMIDE INJ 10MG/2ML VIAL (J2765) IV SCH (07:50)
[2019-01-25] MEDS: SUCRALFATE 1 GM TAB PO SCH ×4 (07:50→20:57)
[2019-01-25] MEDS: PANTOPRAZOLE 40MG TAB (PROTONIX) PO SCH ×2 (07:50→17:09)
[2019-01-25] MEDS: HumaLOG INSULIN (NovoLOG) PER UNIT SC SCH ×4 (07:51→20:57)
[2019-01-25 08:00] VITALS: BP 100/64
[2019-01-25] MEDS: LEVEMIR (INSULIN DETEMIR) 1 UNITS/0.01ML SC SCH (09:00)
[2019-01-25] MEDS: levETIRAcetam 250MG TABLET (KEPPRA) PO SCH ×2 (09:27→20:57)
[2019-01-25] MEDS: SERTRALINE HCL 50 MG TAB PO SCH (09:28)
--- NOTE | 2019-01-25 11:45 | IPNPDOC ---
Subjective Date Seen The patient was seen on 01/25/19. Subjective Chief Complaint/HPI Patient seen and examined at the bedside. Reports that she is feeling much better today and was able to tolerate breakfast this morning. Objective Physical Examination General Exam: Positive: Alert, Cooperative, No Acute Distress ENT Exam: Positive: Atraumatic, Mucous membr. moist/pink Chest Exam: Positive: Clear to auscultation, Normal air movement Heart Exam: Positive: Rate Normal, Normal S1, Normal S2 Abdomen Exam: Positive: Soft; Negative: Tenderness Extremity Exam: Negative: Tenderness, Swelling Neuro Exam: Positive: Normal Speech Psych Exam: Positive: Mental status NL, Oriented x 3 A-FIB/CHADSVASC A-FIB History Current/History of A-Fib/PAF?: No Assessment /Plan Plan/VTE VTE Prophylaxis Ordered?: Yes Plan Intractable Nausea/Vomiting likely 2/2 Underlying Gastroparesis with concomitant opioid use Ct Abd/pel with no signs of intestinal obstruction s/p EGD on 01/24/19--notable for moderately severe reflux esophagitis and duodenal erosions without bleeding. Protonix twice a day, and Carafate 4 times a day recommended Cont antiemetics, analgesic therapy, and Reglan I had an extensive conversation with the patient regarding her underlying diabetic gastroparesis with poorly controlled diabetes. I also voiced to her my concern about the patient's high dose of narcotic use contributing to her recurrent episodes of intractable nausea/vomiting with abdominal pain. I have recommended a low residual/low fat diet, with 4-5 small meals daily, and avoiding carbonated beverages The patient has verbalized understanding of the aforementioned recommendations, and notes that she is working on cutting down on her opioid dosing with her primary care physician. She tells me that her neuropathic pain from diabetes is unbearable and she does not want to cut down on her medications at this time, but will follow-up with her PCP regarding further down titration of opioid meds. Non-anion gap metabolic acidosis 2/2 Above, resolved Uncontrolled Type 1 DM No evidence of DKA at this time--as the patient has had multiple episodes similar in the past Patient counseled at length regarding dietary discretion, and lifestyle modifi cation We will cont current insulin regimen Anxiety/depression Continue sertraline History of seizure disorder Continue Keppra GERD Continue PPI DVT prophylaxis Lovenox subcutaneous Disposition-anticipate discharge home in 24 hours pending continued clinical improvement. All the patient's medications have been changed to by mouth. VS, I&O, 24H, Fishbone Vital Signs/I&O Vital Signs Date Time Temp Pulse Resp B/P (MAP) Pulse Ox O2 Delivery O2 Flow Rate FiO2 01/25/19 09:42 16 01/25/19 08:00 98.1 101 100/64 99 01/21/19 23:35 Room Air I&O- Last 24 Hours up to 6 AM 01/25/19 06:00 Intake Total 360 ml Output Total 800 ml Balance -440 ml Laboratory Data 24H LABS Laboratory Tests 2 01/24/19 17:01: Bedside Glucose (Misc Panel) 121H 01/24/19 20:03: Bedside Glucose (Misc Panel) 185H 01/24/19 22:39: Lactic Acid Level 0.8 01/25/19 05:18: Nucleated Red Blood Cells % (auto) 0.0, Anion Gap 6L, Glomerular Filtration Rate > 60.0, Blood Urea Nitrogen 7, Creatinine 0.68, Sodium Level 135L, Potassium Level 3.8, Chloride Level 103, Carbon Dioxide Level 26, Calcium Level 8.0L, Magnesium Level 1.7L CBC/BMP Laboratory Tests 01/25/19 05:18 Red Blood Count 3.60 L, Mean Corpuscular Volume 89.7, Mean Corpuscular Hemoglobin 30.0, Mean Corpuscular Hemoglobin Concent 33.4, Red Cell Distribution Width 13.0, Calcium Level 8.0 L Microbiology Microbiology 01/21/19 Blood Culture - Preliminary, Resulted No Growth after 72 hours. All specime... 01/21/19 Blood Culture - Preliminary, Resulted No Growth after 72 hours. All specime... RAFY RITTER MD January 25, 2019 11:45
[2019-01-25] MEDS: METOCLOPRAMIDE 5 MG TAB PO SCH ×3 (13:35→20:57)
[2019-01-25] MEDS: oxyCODONE 5MG TAB PO PRN ×3 (13:54→22:35)
[2019-01-25 14:00] VITALS: BP 156/84
[2019-01-25 22:00] VITALS: BP 106/51
[2019-01-26] MEDS: oxyCODONE 5MG TAB PO PRN ×3 (03:53→12:09)
[2019-01-26] MEDS: HEPARIN SOD (PORCINE) 5000 UNITS/ML VIAL SC SCH (05:31)
[2019-01-26 06:00] VITALS: BP 112/71
[2019-01-26 06:28] LABS: HEMATOCRIT 31.2 % (36.0-47.0); HEMOGLOBIN 10.3 g/dl (12.0-15.5); MEAN CORPUSCULAR HEMOGLOBIN 30.3 pg (27.0-33.0); MEAN CORPUSCULAR VOLUME 91.8 fl (80.0-96.0); PLATELET COUNT, AUTOMATED 203 10^3/uL (150-450); WHITE BLOOD COUNT 5.4 10^3/uL (4.0-10.0)
[2019-01-26 06:43] LABS: BLOOD UREA NITROGEN 14 MG/DL (7-18); CALCIUM LEVEL 8.4 MG/DL (8.5-10.1); CARBON DIOXIDE LEVEL 32 MEQ/L (21-32); CHLORIDE LEVEL 107 MEQ/L (98-107); CREATININE FOR GFR 0.62 MG/DL (0.55-1.30); GLOMERULAR FILTRATION RATE > 60.0 (>58); GLUCOSE, FASTING 143 MG/DL (70-100); MAGNESIUM LEVEL 1.8 MG/DL (1.8-2.4); POTASSIUM SERUM 3.5 MEQ/L (3.5-5.1); SODIUM LEVEL 140 MEQ/L (136-145)
[2019-01-26] MEDS: PANTOPRAZOLE 40MG TAB (PROTONIX) PO SCH (08:04)
[2019-01-26] MEDS: levETIRAcetam 250MG TABLET (KEPPRA) PO SCH (08:04)
[2019-01-26] MEDS: METOCLOPRAMIDE 5 MG TAB PO SCH ×2 (08:04→12:09)
[2019-01-26] MEDS: SUCRALFATE 1 GM TAB PO SCH ×2 (08:04→12:09)
[2019-01-26] MEDS: SERTRALINE HCL 50 MG TAB PO SCH (08:04)
[2019-01-26] MEDS: HumaLOG INSULIN (NovoLOG) PER UNIT SC SCH ×2 (08:04→12:11)
[2019-01-26] MEDS: LEVEMIR (INSULIN DETEMIR) 1 UNITS/0.01ML SC SCH (08:05)
[2019-01-26] MEDS ORDERED: REGL5TAB2 PO (10:24)
[2019-01-26] MEDS ORDERED: PROT1TAB2 PO (10:24)
[2019-01-26] MEDS ORDERED: CARA1TAB6 PO (10:24)
--- NOTE | 2019-01-26 13:03 | DS.PDOC ---
Discharge Summary General Date of Admission January 23, 2019 at 12:21 Date of Discharge 01/26/19 Specialist/Consultants Involve Dr. Garrido of GI Discharge Summary PROCEDURES PERFORMED DURING STAY: EGD by Dr. Garrido on 01/24/19 ADMITTING/DISCHARGE DIAGNOSES: Intractable nausea/vomiting/abdominal pain secondary to underlying gastroparesis, esophagitis, duodenal erosions History of uncontrolled diabetes mellitus type 1 Anxiety/depression Peripheral neuropathy Chronic pain COMPLICATIONS/CHIEF COMPLAINT: Abd Pain. HISTORY OF PRESENT ILLNESS: . 43-year-old female with past medical history of uncontrolled type 1 diabetes mellitus, peripheral neuropathy, chronic pain, seizure disorder, GERD, anxiety/depression, and multiple admissions over the last several months at different facilities in the local region for intractable nausea/vomiting with abdominal pain due to history of gastroparesis presented to the ER with a chief complaint of intractable nausea, vomiting, and abdominal pain. She denied any complaints of fevers, chills, chest pain, palpitations, recent travel, ingestion of any foreign foods, or recent antibiotic use. The patient was admitted to the hospitalist group for further evaluation and management. HOSPITAL COURSE: . Intractable Nausea/Vomiting likely 2/2 Underlying Gastroparesis with concomitant opioid use Ct Abd/pel with no signs of intestinal obstruction s/p EGD on 01/24/19--notable for moderately severe reflux esophagitis and duodenal erosions without bleeding. Protonix twice a day, and Carafate 4 times a day recommended Cont antiemetics, analgesic therapy, and Reglan I had an extensive conversation with the patient regarding her underlying di abetic gastroparesis with poorly controlled diabetes (HgbA1c of 13.8% on admission). I also voiced to her my concern about the patient's high dose of narcotic use contributing to her recurrent episodes of intractable nausea/vomiting with abdominal pain. I have recommended a low residual/low fat diet, with 4-5 small meals daily, and avoiding carbonated beverages The patient has verbalized understanding of the aforementioned recommendations, and notes that she is working on cutting down on her opioid dosing with her primary care physician. She tells me that her neuropathic pain from diabetes is unbearable and she does not want to cut down on her medications at this time, but will follow-up with her PCP regarding further down titration of opioid meds. Non-anion gap metabolic acidosis 2/2 Above, resolved Uncontrolled Type 1 DM HgbA1c noted to be 13.8% on admission No evidence of DKA during this admission Patient counseled at length regarding dietary discretion, and lifestyle modification We will cont current insulin regimen Anxiety/depression Continue sertraline History of seizure disorder Continue Keppra GERD Continue PPI DISCHARGE MEDICATIONS: Please see below. ALLERGIES: Please see below. PHYSICAL EXAMINATION ON DISCHARGE: VITAL SIGNS: Please see below. General Exam: Positive: Alert, Cooperative, No Acute Distress ENT Exam: Positive: Atraumatic, Mucous membr. moist/pink Chest Exam: Positive: Clear to auscultation, Normal air movement Heart Exam: Positive: Rate Normal, Normal S1, Normal S2 Abdomen Exam: Positive: Soft; Negative: Tenderness Extremity Exam: Negative: Tenderness, Swelling Neuro Exam: Positive: Normal Speech Psych Exam: Positive: Mental status NL, Oriented x 3 LABORATORY DATA: Please see below. IMAGING: Procedure: Upper GI endoscopy Indications: Nausea with vomiting Providers: Lc Garrido MD Referring MD: Marcial Brown MD Requesting Provider: Medicines: Monitored Anesthesia Care Complications: No immediate complications. Procedure: Pre-Anesthesia Assessment: - The heart rate, respiratory rate, oxygen saturations, blood pressure, adequacy of pulmonary ventilation, and response to care were monitored throughout the procedure. The Endoscope was introduced through the mouth, and advanced to the second part of duodenum. The upper GI endoscopy was accomplished without difficulty. The patient tolerated the procedure well. Findings: The Z-line was regular and was found 40 cm from the incisors. Moderately severe esophagitis with no bleeding was found 30 cm from the incisors. No other significant abnormalities were identified in a careful examination of the stomach. Multiple localized erosions without bleeding were found in the first portion of the duodenum. The exam was otherwise without abnormality. Impression: - Z-line regular, 40 cm from the incisors. - Moderately severe reflux esophagitis. - Duodenal erosions without bleeding. - The examination was otherwise normal. - No specimens collected. - The examination was otherwise normal. Recommendation: - Patient has a contact number available for emergencies. The signs and symptoms of potential delayed complications were discussed with the patient. Return to normal activities tomorrow. Written discharge instructions were provided to the patient. - Return patient to hospital [facility] for ongoing care. - Use Protonix (pantoprazole) 40 mg PO BID. - Use sucralfate tablets 1 gram PO QID. - The findings and recommendations were discussed with the referring physician. Chest one-view HISTORY: Diabetic ketoacidosis Comparison: 01/03/2019 The lungs are clear. The heart is normal in size. The pulmonary vasculature is normal in appearance. Impression: No acute disease. EXAM: CT Abdomen and Pelvis With Contrast EXAM DATE/TIME: 01/21/2019 6:15 PM CLINICAL HISTORY: 43 years old, female; Abdominal pain; Generalized TECHNIQUE: Imaging protocol: Axial computed tomography images of the abdomen and pelvis with intravenous contrast. Coronal and sagittal reformatted images were created and reviewed. Radiation optimization: All CT scans at this facility use at least one of these dose optimization techniques: automated exposure control; mA and/or kV adjustment per patient size (includes targeted exams where dose is matched to clinical indication); or iterative reconstruction. Contrast material: ISOVUE 370; Contrast volume: 100 ml; Contrast route: IV; COMPARISON: No relevant prior studies available. FINDINGS: Mediastinum: Low-density wall thickening of the distal esophagus. These changes may be seen with esophagitis as well as esophageal neoplasm. Further clinical evaluation is recommended. This may include upper GI and/or upper endoscopy. ABDOMEN: Liver: Unremarkable. No mass. Gallbladder and bile ducts: Unremarkable. No calcified stones. No ductal dilation. Pancreas: Unremarkable. No ductal dilation. Spleen: Unremarkable. No splenomegaly. Adrenals: Normal. No mass. Kidneys and ureters: Unremarkable. No stones. No hydronephrosis. Stomach and bowel: The small bowel and colon are unremarkable. No bowel obstruction. Appendix: No evidence of appendicitis. PELVIS: Bladder: Unremarkable as visualized. Reproductive: Unremarkable as visualized. ABDOMEN and PELVIS: Intraperitoneal space: Unremarkable. No free air. No significant fluid collection. Bones/joints: Dense sclerotic lesion within the right iliac bone consistent with bone island. No fracture. Soft tissues: Unremarkable. Vasculature: Mild atherosclerosis of the abdominal aorta. No aneurysm. Lymph nodes: Unremarkable. No enlarged lymph nodes. IMPRESSION: Low-density wall thickening of the distal esophagus. These changes may be seen with esophagitis as well as esophageal neoplasm. Further clinical evaluation is recommended. This may include upper GI and/or upper endoscopy. PROGNOSIS: Fair ACTIVITY: As tolerated. DIET: Carb consistent, low residue, low fat diet. Patient counseled to consume 4-5 small meals per day. DISCHARGE PLAN: DISPOSITION: 01 Home, Self-Care. DISCHARGE INSTRUCTIONS: Follow-up PCP within 1 week. DISCHARGE CONDITION: Stable. TIME SPENT ON DISCHARGE: Greater than 30 minutes. Vital Signs/I&Os Vital Signs Date Time Temp Pulse Resp B/P (MAP) Pulse Ox O2 Delivery O2 Flow Rate FiO2 01/26/19 12:42 17 01/26/19 06:00 97.4 90 112/71 (85) 98 01/21/19 23:35 Room Air I&O- Last 24 Hours up to 6 AM 01/26/19 06:00 Intake Total 1140 ml Output Total 900 ml Balance 240 ml Laboratory Data Labs 24H Laboratory Tests 2 01/25/19 13:04: Bedside Glucose (Misc Panel) 202H 01/25/19 16:10: Bedside Glucose (Misc Panel) 160H 01/25/19 20:19: Bedside Glucose (Misc Panel) 174H 01/26/19 05:28: Nucleated Red Blood Cells % (auto) 0.0, Anion Gap 1L, Glomerular Filtration Rate > 60.0, Blood Urea Nitrogen 14#, Creatinine 0.62, Sodium Level 140, Potassium Level 3.5, Chloride Level 107, Carbon Dioxide Level 32, Calcium Level 8.4L, Magnesium Level 1.8 01/26/19 12:05: Bedside Glucose (Misc Panel) 173H CBC/BMP Laboratory Tests 01/26/19 05:28 Red Blood Count 3.40 L, Mean Corpuscular Volume 91.8, Mean Corpuscular Hemoglobin 30.3, Mean Corpuscular Hemoglobin Concent 33.0, Red Cell Distribution Width 13.4, Calcium Level 8.4 L FSBS Laboratory Tests Test 01/25/19 13:04 01/25/19 16:10 01/25/19 20:19 01/26/19 12:05 Range/Units Bedside Glucose (Misc Panel) 202 160 174 173 70-105 MG/DL Microbiology Microbiology 01/21/19 Blood Culture - Preliminary, Resulted No Growth after 72 hours. All specime... 01/21/19 Blood Culture - Preliminary, Resulted No Growth after 72 hours. All specime... Discharge Medications Scheduled Insulin Degludec (Tresiba Flextouch U-200) 200 Unit/1 Ml Insuln.pen, 42 UNIT SC DAILY, (Reported) Insulin Human Lispro (Novolog) 100 Unit/1 Ml Vial, 1 DOSE SC AC, (Reported) PER SLIDING SCALE Levetiracetam (Keppra) 1,000 Mg Tablet, 1,000 MG PO BID, (Reported) Metoclopramide Hcl (Reglan) 5 Mg Tablet, 5 MG PO TID 1 hour prior to procedure Omeprazole (Omeprazole) 10 Mg Capsule.dr, 10 MG PO DAILY, (Reported) Pantoprazole Sodium (Protonix) 40 Mg Tablet.dr, 1 TAB PO BID Sertraline HCl (Sertraline HCl) 50 Mg Tablet, 50 MG PO DAILY, (Reported) Sucralfate (Carafate) 1 Gm Tablet, 1 GRAM PO QID Scheduled PRN Diazepam (Diazepam) 2 Mg Tablet, 2 MG PO TID PRN for ANXIETY, (Reported) Hydrocodone/Acetaminophen (Hydrocodone-Acetamin 10-325 mg) 1 Each Tablet, 1 TAB PO QID PRN for PAIN, (Reported) Oxycodone Hcl (Oxycodone HCl) 15 Mg Tablet, 15 MG PO Q4H PRN for PAIN, (Reported) Allergies Coded Allergies: ciprofloxacin (Verified Allergy, Unknown, 01/21/19) SKIN BLISTERS gabapentin (Verified Allergy, Unknown, 01/21/19) VERTIGO pregabalin (Verified Allergy, Unknown, 01/21/19) DIARRHEA vancomycin (Verified Allergy, Unknown, 01/21/19) SKIN BLISTERS RAFY RITTER MD January 26, 2019 13:03
== END 2019-01-26 12:30 | disposition home or self-care (01) | DRG 74 ==
LOC: M ED 14:16 → M ED INP 20:39 → M MS5PR 23:43 → OBSVTOIN 01-23 12:21
PROVIDERS: ADMIT Internal Medicine; ATTEND Internal Medicine
PROC: 0DJ08ZZ Inspection of Upper Intestinal Tract, Via Natural or Artificial Opening Endoscopic (ICD-10-PCS; principal; 2019-01-24 13:45)
DX: E10.43 Type 1 diabetes mellitus with diabetic autonomic (poly)neuropathy (principal); E87.2 Acidosis; F41.9 Anxiety disorder, unspecified; F32.9 Major depressive disorder, single episode, unspecified; E10.51 Type 1 diabetes mellitus with diabetic peripheral angiopathy without gangrene; G89.29 Other chronic pain; G40.909 Epilepsy, unspecified, not intractable, without status epilepticus; K21.0 Gastro-esophageal reflux disease with esophagitis; K26.9 Duodenal ulcer, unspecified as acute or chronic, without hemorrhage or perforation; Z79.4 Long term (current) use of insulin; Z79.899 Other long term (current) drug therapy; Z88.8 Allergy status to other drugs, medicaments and biological substances; F17.210 Nicotine dependence, cigarettes, uncomplicated; F12.10 Cannabis abuse, uncomplicated; E86.0 Dehydration; F11.90 Opioid use, unspecified, uncomplicated

== ENCOUNTER 2019-07-16 08:55 | Inpatient (IN) | payer MEDICARE, MEDICAID ==
[~2019-07-16] VITALS: Ht 185.4 cm; Wt 58.3 kg
[~2019-07-16 08:55] MED LIST changes: +CARA1TAB6 PO; +HYDR-4517 PO; +PROT1TAB2 PO; +REGL5TAB2 PO; -SERT-155; -SERT-155 PO; +SERT50TA29; +SERT50TA29 PO
[2019-07-16] MEDS ORDERED: ENOXAPARIN 40 MG/0.4 ML SYRINGE (J1650) SC SCH (09:00)
[2019-07-16] MEDS ORDERED: NS 1,000 ML IV ONE ×3 (09:15→14:45)
[2019-07-16] MEDS ORDERED: ONDANSETRON 4 MG ORAL DISINTEGRATING TAB (Q0162 PER 1MG) As Ordered ONE (10:29)
[2019-07-16] MEDS ORDERED: ONDANSETRON 4 MG ORAL DISINTEGRATING TAB (Q0162 PER 1MG) PO ONE (10:30)
[2019-07-16 11:12] LABS: VENOUS BASE EXCESS -14.9 (-2.0-2.0); VENOUS HCO3 10.5 MEQ/L (23.0-27.0); VENOUS O2 SATURATION 98.3 % (60.0-80.0); VENOUS PARTIAL PRESSURE CO2 24.1 mmHg (38.0-50.0); VENOUS PARTIAL PRESSURE O2 122.8 mmHg (30.0-50.0); VENOUS PH 7.258 UNITS (7.330-7.430); VENOUS TOTAL CO2 11.3 MEQ/L (24.0-28.0)
[2019-07-16 11:42] LABS: BASO # 0.1 10^3/uL (0.0-0.2); BASO % 0.3 % (0.0-1.0); HEMATOCRIT 38.2 % (36.0-47.0); LYMPH # 0.8 10^3/uL (1.5-5.0); LYMPH % 5.1 % (24.0-44.0); MEAN CORPUSCULAR HEMOGLOBIN 29.7 pg (27.0-33.0); MEAN CORPUSCULAR HGB CONC 31.4 g/dl (32.0-36.5); MEAN CORPUSCULAR VOLUME 94.6 fl (80.0-96.0); MONO # 0.5 10^3/uL (0.0-0.8); MONO % 3.5 % (0.0-5.0); NEUTROPHILS % 90.6 % (36.0-66.0); PLATELET COUNT, AUTOMATED 435 10^3/uL (150-450); RED BLOOD COUNT 4.04 10^6/uL (4.00-5.40); WHITE BLOOD COUNT 15.4 10^3/uL (4.0-10.0)
[2019-07-16 11:47] LABS: OSMOLALITY SERUM 340 MOSM/KG (275-295)
[2019-07-16] MEDS ORDERED: TRES1INJ SC (11:49)
[2019-07-16] MEDS ORDERED: HYDR-4514 PO (11:49)
[2019-07-16] MEDS ORDERED: PANT40TA3 PO (11:50)
[2019-07-16 11:58] LABS: ACETONE/KETONE > 46.00 MG/DL (<2.81); ALBUMIN 3.4 GM/DL (3.2-5.2); ALT/SGPT 11 U/L (12-78); BILIRUBIN,DIRECT 0.1 MG/DL (0.0-0.2); BILIRUBIN,TOTAL 0.6 MG/DL (0.2-1.0); BLOOD UREA NITROGEN 32 MG/DL (7-18); CALCIUM LEVEL 9.5 MG/DL (8.5-10.1); CARBON DIOXIDE LEVEL 14 MEQ/L (21-32); CHLORIDE LEVEL 92 MEQ/L (98-107); CK-MB VALUE MASS < 1.0 NG/ML (<3.6); CPK CREATINE PHOSPHOKINASE 27 U/L (26-192); CREATININE FOR GFR 1.27 MG/DL (0.55-1.30); ETHYL ALCOHOL (ETHANOL) < 0.003 % (0.000-0.010); GLOMERULAR FILTRATION RATE 49.4 (>58); GLUCOSE, FASTING 499 MG/DL (70-100); HCG, SERUM QUANTITATIVE < 1.0 MIU/ML; LIPASE 39 U/L (73-393); MAGNESIUM LEVEL 2.3 MG/DL (1.8-2.4); POTASSIUM SERUM 4.5 MEQ/L (3.5-5.1); SODIUM LEVEL 132 MEQ/L (136-145); TOTAL PROTEIN 8.8 GM/DL (6.4-8.2); TROPONIN I < 0.02 NG/ML (< 0.10)
[2019-07-16] MEDS ORDERED: PANTOPRAZOLE 40MG INJ (PROTONIX) (C9113) IV ONE (12:00)
[2019-07-16] MEDS ORDERED: ONDANSETRON 4MG/2ML VIAL (J2405) IV ONE (12:00)
[2019-07-16] MEDS ORDERED: INSULIN HUMAN REGULAR 100 UNITS in NS 99 ML IV SCH ×4 (12:04→16:30)
[2019-07-16 12:05] LABS: HEMOGLOBIN A1c 14.1 %
[2019-07-16] MEDS ORDERED: HumuLIN R (REGULAR) INSULIN (NovoLIN R) **100U/ML** PER UNIT IV ONE (12:15)
[2019-07-16] MEDS ORDERED: INSULIN IV RATE CHANGE DOCUMENTATION ML/HR XX SCH ×2 (12:15→16:15)
[2019-07-16] MEDS: MORPHINE 2 MG/ML 1ML VIAL (J2270) IV PRN ×2 (12:49→13:20)
--- NOTE | 2019-07-16 13:23 | REP ---
CHEST, PORTABLE AP: There is no evidence of acute infiltrate. No pleural effusion is seen. The heart is normal in size. The mediastinal silhouette is unremarkable. The visualized osseous structures are intact. IMPRESSION: No acute pulmonary disease. Electronically Signed by Shalom Friend MD 07/18/2019 12:46 A
[2019-07-16] MEDS ORDERED: MORPHINE 4 MG/ML 1ML VIAL/SYRINGE (J2270) IV PRN ×2 (14:00)
[2019-07-16] MEDS ORDERED: NS 1,000 ML IV SCH (14:02)
--- NOTE | 2019-07-16 14:02 | HPEPDOC ---
[facility] Medical History & Physical Date of Admission Jul 16, 2019 Date of Service: Jul 16, 2019 History and Physical CHIEF COMPLAINT: Nausea HISTORY OF PRESENT ILLNESS: Patient is a 43F with IDDM and reported gastroparesis was brought into the ER for complaints of N/V for the past several days and have not been taking her insulin. She reported feeling nauseous and sick along with generalized abdominal pain for several days. She started vomiting yesterday and noted that her vomit has been dark. She has not been taking her insulin because she is concern for hypoglycemia when she is ill and not being able to eat. In ER, patient was found to be in DKA with AG 26, BHB 64 and acidosis on the VBG. She reports feeling slightly better now after getting IVF boluses but still has persistent abdominal discomfort. Denies any fever, chills or any other complaints. Of note, she has a R. foot wound and has been following with wound care. PAST MEDICAL HISTORY: Refer to [facility] PAST SURGICAL HISTORY: Toes amputation of R. foot C section SOCIAL HISTORY: Smokes several cigarettes/day. Denies alcohol use. Uses marijuana for neuropathy FAMILY HISTORY: ALLERGIES: Please see below. REVIEW OF SYSTEMS: 10 point review of system negative except as stated in HPI HOME MEDICATIONS: Please see below. PHYSICAL EXAMINATION: General: Moderate distress, alert, dry lips Eyes: Normal sclera, EOMI, ALEM HENT: Atraumatic, dry mucous membranes Cardiovascular: Tachycardia, regular rhythm Pulmonary: Clear to auscultation b/l GI: Soft, generalized tenderness Skin: Warm and dry Neuro: CN grossly intact. No focal deficits. Psych: oriented x 3 LABORATORY DATA: See below. IMAGING: CT Abdomen/Pelvis- Pending MICROBIOLOGY: Please see below. ASSESSMENT AND PLAN: 1. DKA 2/2 IDDM - Had not taken insulin for several days POA with concern for hypoglycemia. - On presentation: AG 26, HBH >64, pH 7.25 on VBG. - To finish IVF boluses follow by insulin drip and IVF maintenance, admit to ICU. - Monitor BMP q4 until resolution and transition to SQ insulin. 2. Abdominal discomfort - DKA vs. gastritis vs. gastroparesis - f/u CT Abdomen/Pelvis. - Pain control and Zofran PRN for nausea. - Supportive care, IVF support. 3. Tarry vomitus - Likely 2/2 gastritis. Hb at 12 which appears to be patient's baseline. Hb 10 at previous admission at 10. - Monitor H/H. No evidence of gross/bright red blood at this time. 4. Esophagitis - Recent scope on previous admission showing moderately severe esophagitis/gastritis. - Will need to continue sulcrafate/PPI. - Monitor H/H. May need re-peat endoscopy. Vital Signs Vital Signs Date Time Temp Pulse Resp B/P (MAP) Pulse Ox O2 Delivery O2 Flow Rate FiO2 07/16/19 13:31 103 18 122/74 (90) 99 Room Air 07/16/19 09:14 98.0 Laboratory Data Labs 24H Laboratory Tests 2 07/16/19 09:49: Bedside Glucose (Misc Panel) 501*H 07/16/19 10:52: Lactic Acid Level 2.0 07/16/19 10:58: Blood Gas Bicarbonate Standard 13.0, Venous Blood pH 7.258L, Venous Blood Partial Pressure CO2 24.1L, Venous Blood Partial Pressure O2 122.8H, Venous Blood Total Carbon Dioxide 11.3L, Venous Blood HCO3 10.5L, Venous Blood Oxygen Saturation 98.3H, Venous Blood Base Excess -14.9L, Anion Gap 26H, Glomerular Filtration Rate 49.4L, Osmolality 340H, Calcium Level 9.5, Magnesium Level 2.3, Total Bilirubin 0.6, Direct Bilirubin 0.1, Aspartate Amino Transf (AST/SGOT) 7, Alanine Aminotransferase (ALT/SGPT) 11L, Alkaline Phosphatase 120H, Total Creatine Kinase 27, Creatine Kinase MB < 1.0, Creatine Kinase MB Relative Index 3.70, Troponin I < 0.02, Total Protein 8.8H, Albumin 3.4, Albumin/Globulin Ratio 0.63L, Lipase 39L, Human Chorionic Gonadotropin, Quant < 1.0, Ethyl Alcohol Level < 0.003, B-Hydroxybutyrate > 46.00H 07/16/19 11:19: Bedside Glucose (Misc Panel) 554*H 07/16/19 11:28: Immature Granulocyte % (Auto) 0.5, Neutrophils (%) (Auto) 90.6H, Lymphocytes (%) (Auto) 5.1L, Monocytes (%) (Auto) 3.5, Eosinophils (%) (Auto) 0.0, Basophils (%) (Auto) 0.3, Neutrophils # (Auto) 14.0H, Lymphocytes # (Auto) 0.8L, Monocytes # (Auto) 0.5, Eosinophils # (Auto) 0.0, Basophils # (Auto) 0.1, Nucleated Red Blood Cells % (auto) 0.0 07/16/19 11:36: Estimated Mean Plasma Glucose 358H, Hemoglobin A1c 14.1 07/16/19 12:48: Bedside Glucose (Misc Panel) 508*H CBC/BMP Laboratory Tests 07/16/19 10:58 07/16/19 11:28 Microbiology Microbiology 07/16/19 Gastrointestinal Tract Panel (PCR), Received Pending 07/16/19 Blood Culture, Received Pending Home Medications Scheduled Insulin Degludec (Tresiba Flextouch U-200) 200 Unit/1 Ml Insuln.pen, 42 UNIT SC QAM Insulin Degludec (Tresiba Flextouch U-200) 200 Unit/1 Ml Insuln.pen, 12 UNIT SC QHS Insulin Human Lispro (Novolog) 100 Unit/1 Ml Vial, 1 DOSE SC AC PER SLIDING SCALE Levetiracetam (Keppra) 1,000 Mg Tablet, 1,000 MG PO BID HAS NOT BEEN FILLED SINCE JUL 2018 Pantoprazole Sodium (Pantoprazole Sodium) 40 Mg Tablet.dr, 40 MG PO DAILY Sertraline HCl (Sertraline HCl) 50 Mg Tablet, 75 MG PO DAILY Scheduled PRN Diazepam (Diazepam) 2 Mg Tablet, 2 MG PO TID PRN for ANXIETY Hydrocodone/Acetaminophen (Hydrocodone-Acetamin 7.5-325) 1 Each Tablet, 1 TAB PO QID PRN for PAIN Oxycodone Hcl (Oxycodone HCl) 15 Mg Tablet, 15 MG PO Q3HP PRN for PAIN Allergies Coded Allergies: ciprofloxacin (Verified Allergy, Unknown, SKIN BLISTERS, 07/16/19) gabapentin (Verified Allergy, Unknown, VERTIGO, 07/16/19) pregabalin (Verified Allergy, Unknown, DIARRHEA, 07/16/19) vancomycin (Verified Allergy, Unknown, SKIN BLISTERS, 07/16/19) A-FIB/CHADSVASC A-FIB History Current/History of A-Fib/PAF?: No ELIDA LOPEZ MD Jul 16, 2019 14:02
--- NOTE | 2019-07-16 14:21 | REP ---
CT ABDOMEN/PELVIS WITHOUT CONTRAST: CT abdomen pelvis performed without oral or IV contrast. Sagittal and coronal reconstruction images are performed. Comparison made with prior study of 01/21/2019. In the visualized lung bases there is a stable 4 mm nodular density in the right middle lobe with no change since the 01/21/2019 CT exam. Posteriorly in the left lower lobe, there is an oval ill-defined opacity 1.3 cm in maximum diameter. This level is not imaged on the prior CT. This may represent focal infiltrate or mass. The liver is grossly unremarkable. The patient has had a prior cholecystectomy. The spleen is normal in size. The adrenals demonstrate no nodule. Pancreas is grossly unremarkable. Kidneys demonstrate no stone or hydronephrosis. There is mild atherosclerotic calcification of the abdominal aorta without aneurysm. There is diffuse thickening of the distal esophagus. Differential diagnosis would include esophagitis and neoplasm. The findings are unchanged since the prior exam. No periaortic adenopathy is seen. There are several lymph nodes in the right inguinal region, which are upper limits of normal in size. A left common femoral vein catheter is present. There is no free air or free fluid. I see no bowel wall thickening. I see no pelvic mass. Urinary bladder is moderately distended and grossly unremarkable. There are degenerative changes of the spine. IMPRESSION: Stable 4 mm nodule right middle lobe. Oval, ill-defined nodular density posteriorly in the left lower lobe measures 1.3 cm maximally and may represent a mass or focal infiltrate. Followup suggested. Diffuse thickening of the distal esophagus may represent esophagitis or neoplasm. Status post cholecystectomy. No acute abnormality is seen in the abdomen or pelvis. Electronically Signed by Shalom Friend MD 07/18/2019 12:49 A
[2019-07-16 15:22] LABS: CALCIUM LEVEL 9.4 MG/DL (8.5-10.1); CREATININE FOR GFR 1.3 MG/DL (0.55-1.30); GLOMERULAR FILTRATION RATE 48.1 (>58); POTASSIUM SERUM 3.4 MEQ/L (3.5-5.1)
[2019-07-16 16:00] VITALS: BP 115/69
[2019-07-16] MEDS ORDERED: KCL 40MEQ in NS 1000ML 1,000 ML IV SCH (16:00)
[2019-07-16] MEDS ORDERED: POTASSIUM CHLORIDE INJ 30 MEQ in NS 1,000 ML IV SCH (16:00)
[2019-07-16] MEDS: KCL 20MEQ IN 100ML SWI (KRUN) 20 MEQ in IV 1 EA IV SCH ×6 (16:14→18:00)
[2019-07-16] MEDS: ONDANSETRON 4MG/2ML VIAL (J2405) IV PRN ×2 (16:21→20:17)
[2019-07-16] MEDS: INSULIN IV RATE CHANGE DOCUMENTATION ML/HR XX SCH ×4 (16:45→23:18)
[2019-07-16] MEDS: INSULIN HUMAN REGULAR 100 UNITS in NS 99 ML IV SCH (16:45)
[2019-07-16] MEDS: MORPHINE 4 MG/ML 1ML VIAL/SYRINGE (J2270) IV PRN ×3 (17:07→23:22)
--- NOTE | 2019-07-16 17:24 | ECGEPIP ---
[facility] - ED Test Date: 2019-07-16 Pat Name: PRISCILA LOVE Department: Room: - Gender: Female Document Control Specialist: PMO : [id number] Requested By: NORA Dobbins Order Number: [id number] Reading MD: Troy Alicea Measurements Intervals [place] Rate: 105 P: 84 MA: 132 QRS: -71 QRSD: 94 T: 72 QT: 360 QTc: 478 Interpretive Statements SINUS TACHYCARDIA LEFT AXIS DEVIATION PATTERN CONSISTENT WITH PULMONARY DISEASE RATE CHANGE COMPARED TO 01/21/19 Electronically Signed on 07-16-2019 17:24:21 EDT by Troy Alicea
[2019-07-16 18:00] VITALS: BP 100/66
[2019-07-16] MEDS: KCL 20MEQ IN D5/0.45NS 1000ML 1,000 ML IV SCH ×2 (18:25→23:22)
[2019-07-16 18:31] LABS: CALCIUM LEVEL 8.7 MG/DL (8.5-10.1); CREATININE FOR GFR 1.18 MG/DL (0.55-1.30); GLOMERULAR FILTRATION RATE 53.7 (>58)
[2019-07-16 20:00] VITALS: BP 125/78
[2019-07-16] MEDS ORDERED: MORPHINE 4 MG/ML 1ML VIAL/SYRINGE (J2270) IV ONE (20:30)
[2019-07-16] MEDS ORDERED: DEXTROSE 50% 50 ML SYRINGE IV PRN (22:00)
[2019-07-16] MEDS ORDERED: GLUCOSE 4 GM CHEW TABLET PO PRN (22:00)
[2019-07-16] MEDS ORDERED: GLUCAGON FOR INJ 1 MG VIAL (J1610) SC PRN (22:00)
[2019-07-16 22:50] LABS: CALCIUM LEVEL 8.4 MG/DL (8.5-10.1); CREATININE FOR GFR 1.18 MG/DL (0.55-1.30); GLOMERULAR FILTRATION RATE 53.7 (>58); POTASSIUM SERUM 4.1 MEQ/L (3.5-5.1)
[2019-07-17] VITALS: BP 116/71
[2019-07-17] MEDS: INSULIN IV RATE CHANGE DOCUMENTATION ML/HR XX SCH ×2 (00:25→01:06)
[2019-07-17] MEDS: ONDANSETRON 4MG/2ML VIAL (J2405) IV PRN ×3 (02:31→15:01)
[2019-07-17] MEDS: MORPHINE 4 MG/ML 1ML VIAL/SYRINGE (J2270) IV PRN ×7 (02:32→21:18)
[2019-07-17 03:00] LABS: BLOOD UREA NITROGEN 22 MG/DL (7-18); CALCIUM LEVEL 8.5 MG/DL (8.5-10.1); CARBON DIOXIDE LEVEL 26 MEQ/L (21-32); CHLORIDE LEVEL 111 MEQ/L (98-107); CREATININE FOR GFR 1.02 MG/DL (0.55-1.30); GLOMERULAR FILTRATION RATE > 60.0 (>58); GLUCOSE, FASTING 182 MG/DL (70-100); POTASSIUM SERUM 4.1 MEQ/L (3.5-5.1); SODIUM LEVEL 142 MEQ/L (136-145)
[2019-07-17] MEDS: INSULIN HUMAN REGULAR 100 UNITS in NS 99 ML IV SCH (03:17)
[2019-07-17 04:00] VITALS: BP 101/61
[2019-07-17] MEDS: KCL 20MEQ IN D5/0.45NS 1000ML 1,000 ML IV SCH ×2 (04:02→08:52)
[2019-07-17 05:48] LABS: HEMATOCRIT 31.2 % (36.0-47.0); HEMOGLOBIN 10.1 g/dl (12.0-15.5); MEAN CORPUSCULAR HEMOGLOBIN 30.1 pg (27.0-33.0); MEAN CORPUSCULAR HGB CONC 32.4 g/dl (32.0-36.5); MEAN CORPUSCULAR VOLUME 92.9 fl (80.0-96.0); PLATELET COUNT, AUTOMATED 364 10^3/uL (150-450); RED BLOOD COUNT 3.36 10^6/uL (4.00-5.40); WHITE BLOOD COUNT 19.6 10^3/uL (4.0-10.0)
[2019-07-17 06:12] LABS: BLOOD UREA NITROGEN 19 MG/DL (7-18); CALCIUM LEVEL 8.5 MG/DL (8.5-10.1); CARBON DIOXIDE LEVEL 24 MEQ/L (21-32); CHLORIDE LEVEL 112 MEQ/L (98-107); CREATININE FOR GFR 0.97 MG/DL (0.55-1.30); GLOMERULAR FILTRATION RATE > 60.0 (>58); GLUCOSE, FASTING 172 MG/DL (70-100); POTASSIUM SERUM 4.2 MEQ/L (3.5-5.1); SODIUM LEVEL 141 MEQ/L (136-145)
[2019-07-17] MEDS ORDERED: LEVEMIR (INSULIN DETEMIR) 1 UNITS/0.01ML SC ONE (07:45)
[2019-07-17 08:00] VITALS: BP 124/94
[2019-07-17] MEDS ORDERED: diazePAM 2 MG TAB PO PRN (08:45)
[2019-07-17] MEDS ORDERED: SERTRALINE HCL 50 MG TAB PO SCH (09:00)
[2019-07-17] MEDS ORDERED: PILL CUTTER 1 EACH XX PRN (09:15)
[2019-07-17] MEDS: PANTOPRAZOLE 40MG INJ (PROTONIX) (C9113) IV SCH ×2 (09:43→20:09)
[2019-07-17] MEDS: NS 1,000 ML IV SCH ×2 (09:44→18:23)
[2019-07-17 12:00] VITALS: BP 142/75
[2019-07-17] MEDS ORDERED: METOCLOPRAMIDE INJ 10MG/2ML VIAL (J2765) IV PRN (12:00)
[2019-07-17 16:00] VITALS: BP 124/78
[2019-07-17] MEDS: CEFTAROLINE FOSAMIL 600 MG in D5W MINI-BAG PLUS 50 ML IV SCH (16:09)
--- NOTE | 2019-07-17 17:12 | IPNPDOC ---
Date Seen The patient was seen on 07/17/19. Progress Note SUBJECTIVE: Patient appeared less tremulous and distress compare to yesterday. Still appear very weak and sleeping most of the day. Able to tolerate some PO intake and transitioned to full liquid. Nausea still persistent. Noted to have a wound in the back with necrotic center. WBC 15-> 19.6. OBJECTIVE PHYSICAL EXAMINATION: VITAL SIGNS: Please see below. General: Alert, lethargic Eyes: Normal sclera, EOMI HENT: Atraumatic Cardiovascular: Normal rate Pulmonary: Clear to auscultation b/l, no wheezing GI: Soft, nontender, nondistended Skin: Warm and dry. Mid-lower back erythematous lesion with necrotic center, tender to touch, about 4x4cm. Neuro: CN grossly intact. No focal deficits. Psych: oriented x 3 LABORATORY DATA, IMAGING STUDIES, MICROBIOLOGY: Please see below. ASSESSMENT AND PLAN: 1. DKA 2/2 IDDM - Resolved. - Had not taken insulin for several days POA due to concern for hypoglycemia. - On presentation: AG 26, HBH >64, pH 7.25 on VBG. 2. Abdominal discomfort - DKA vs. gastritis vs. gastroparesis - CT Abdomen/Pelvis showed no significant acute intraabdominal pathology, likely from DKA N/V. - Pain control and Zofran PRN for nausea. - Supportive care, IVF support. 3. Tarry vomitus - Likely 2/2 gastritis. Hb 10 similar to last admission. - Monitor H/H. No evidence of gross/bright red blood at this time. 4. Esophagitis - Recent scope on previous admission showing moderately severe esophagitis/ga stritis. - c/w PPI. - Monitor H/H. May need re-peat endoscopy. 5. Lower back wound - Moderate size lower back erythematous wound with necrotic center. - Surgery following. Plan for OR in AM for drainage. - f/u cultures. Code status: Full code Dispo: Home once stable VS, I&O, 24H, Fishbone Vital Signs/I&O Vital Signs Date Time Temp Pulse Resp B/P (MAP) Pulse Ox O2 Delivery O2 Flow Rate FiO2 07/17/19 15:11 12 07/17/19 08:52 98 Room Air 07/17/19 08:00 98.2 94 124/94 (104) I&O- Last 24 Hours up to 6 AM 07/17/19 06:00 Intake Total 5956 ml Output Total 850 ml Balance 5106 ml Laboratory Data 24H LABS Laboratory Tests 2 07/16/19 17:21: Bedside Glucose (Misc Panel) 269H 07/16/19 17:53: Anion Gap 15, Glomerular Filtration Rate 53.7L, Calcium Level 8.7 07/16/19 17:59: Bedside Glucose (Misc Panel) 139H 07/16/19 19:03: Bedside Glucose (Misc Panel) 219H 07/16/19 20:22: Bedside Glucose (Misc Panel) 210H 07/16/19 21:12: Bedside Glucose (Misc Panel) 215H 07/16/19 21:58: Bedside Glucose (Misc Panel) 210H 07/16/19 22:04: Anion Gap 6L, Glomerular Filtration Rate 53.7L, Calcium Level 8.4L 07/16/19 23:15: Bedside Glucose (Misc Panel) 172H 07/17/19 00:21: Bedside Glucose (Misc Panel) 184H 07/17/19 01:04: Bedside Glucose (Misc Panel) 174H 07/17/19 02:17: Bedside Glucose (Misc Panel) 160H 07/17/19 02:20: Anion Gap 5L, Glomerular Filtration Rate > 60.0, Calcium Level 8.5 07/17/19 03:17: Bedside Glucose (Misc Panel) 169H 07/17/19 04:04: Bedside Glucose (Misc Panel) 170H 07/17/19 05:02: Bedside Glucose (Misc Panel) 166H 07/17/19 05:34: Nucleated Red Blood Cells % (auto) 0.0, Anion Gap 5L, Glomerular Filtration Rate > 60.0, Calcium Level 8.5 07/17/19 05:51: Bedside Glucose (Misc Panel) 157H 07/17/19 07:03: Bedside Glucose (Misc Panel) 155H 07/17/19 08:04: Bedside Glucose (Misc Panel) 158H 07/17/19 09:07: Bedside Glucose (Misc Panel) 157H 07/17/19 10:21: Bedside Glucose (Misc Panel) 147H 07/17/19 11:35: Bedside Glucose (Misc Panel) 156H 07/17/19 14:05: Bedside Glucose (Misc Panel) 150H 07/17/19 14:06: Methicillin-Resist S.aureus DNA PCR NOT DETECTED 07/17/19 16:10: Bedside Glucose (Misc Panel) 150H CBC/BMP Laboratory Tests 07/16/19 17:53 07/16/19 22:04 07/17/19 02:20 07/17/19 05:34 Microbiology Microbiology 07/17/19 Gram Stain, Received Pending 07/17/19 Wound Culture, Received Pending 07/17/19 Gram Stain, Received Pending 07/17/19 Wound Culture, Received Pending 07/16/19 Blood Culture - Preliminary, Resulted No growth after 24 hours . All specim... 07/16/19 Gastrointestinal Tract Panel (PCR) - Final, Complete 07/16/19 Blood Culture - Preliminary, Resulted No growth after 24 hours . All specim... ELIDA LOPEZ MD Jul 17, 2019 17:12
[2019-07-17 20:00] VITALS: BP 131/85
[2019-07-18] VITALS (15 sets, daily range): BP systolic 111–153; BP diastolic 64–89
[2019-07-18] MEDS: MORPHINE 4 MG/ML 1ML VIAL/SYRINGE (J2270) IV PRN ×6 (00:13→22:14)
[2019-07-18] MEDS: CEFTAROLINE FOSAMIL 600 MG in D5W MINI-BAG PLUS 50 ML IV SCH ×2 (02:06→16:26)
[2019-07-18] MEDS: ONDANSETRON 4MG/2ML VIAL (J2405) IV PRN ×2 (03:38→07:44)
[2019-07-18] MEDS: NS 1,000 ML IV SCH ×2 (03:52→17:30)
[2019-07-18 05:38] LABS: HEMATOCRIT 31.6 % (36.0-47.0); HEMOGLOBIN 9.8 g/dl (12.0-15.5); MEAN CORPUSCULAR HEMOGLOBIN 28.7 pg (27.0-33.0); MEAN CORPUSCULAR VOLUME 92.7 fl (80.0-96.0); PLATELET COUNT, AUTOMATED 327 10^3/uL (150-450); RED BLOOD COUNT 3.41 10^6/uL (4.00-5.40); WHITE BLOOD COUNT 12.3 10^3/uL (4.0-10.0)
[2019-07-18 05:54] LABS: BLOOD UREA NITROGEN 11 MG/DL (7-18); CALCIUM LEVEL 8.3 MG/DL (8.5-10.1); CARBON DIOXIDE LEVEL 26 MEQ/L (21-32); CHLORIDE LEVEL 108 MEQ/L (98-107); CREATININE FOR GFR 0.55 MG/DL (0.55-1.30); GLOMERULAR FILTRATION RATE > 60.0 (>58); GLUCOSE, FASTING 172 MG/DL (70-100); POTASSIUM SERUM 3.8 MEQ/L (3.5-5.1); SODIUM LEVEL 140 MEQ/L (136-145)
--- NOTE | 2019-07-18 07:50 | CR.PDOC ---
General Surgery Consultation Date of Consultation 07/18/19 History and Physical CONSULT REPORT FOR: Sharmaine Augustin MD (hospitalist service) REASON FOR CONSULTATION: wound care: back wound, foot wound HISTORY OF PRESENT ILLNESS: Patient is a 43 year old female, fpc diabetic with neuropathy, possibly vasculopathy, gastroparesis admitted for diabetic ketoacidosis after she had a worsening of her gastroparesis for which she held off her insulin treatments. She was noted to have a wound with drainage on her lower back area. She reports noting the wound/swelling for about two weeks now. She thinks it is a possible spider bite as her son also had one. No treatments done for this. She also had a draining wound on her right foot resulting from her stepping on a piece of broken plate a month ago. she has a tma on that foot a year ago for infected diabetic wound. PAST MEDICAL HISTORY: 1. diabetes with neuropathy 2. gastoparesis PAST SURGICAL HISTORY: INCLUDES: 1. tma with secondary healing on wound vac, right foot 2. section ALLERGIES: Please see below. HOME MEDICATIONS: Please see below. REVIEW OF SYSTEMS: Patient currently admitted for persistent nausea and vomiting, diabetes ketoacidosis. She denies any fevers or chills. She reports at least a six-month history of intermittent nausea and vomiting consistent with diabetes gastroparesis and has had several admissions for this. Denies any abnormal weight loss. Her voice is hoarse secondary to persistent retching. Denies any chest pains or shortness of breath. Patient has been diabetes for more than 20 years on insulin treatment. Reports decreased sensation on her foot secondary to diabetic neuropathy. PHYSICAL EXAMINATION: VITALS SIGNS: Please see below. GENERAL APPEARANCE: Patient seen laying on bed, uncomfortable secondary to the nausea. SKIN: On her lower back area slightly to the right of the midline atabout the sacral level is an area about 3x3 cms with a black hardene scab. There is a rim of induratied subcutaneous tissue and slight erythema to another cm or so beyond the induration. There is drainage of purulent material from an opening within the hardened scab/necrotic skin. Mildly tender on palpation. LUNGS: [Clear to auscultation bilaterally. No wheezing appreciated]. HEART: [No chest wall abnormalities. Regular rate and rhythm with no murmurs appreciated]. ABDOMEN: Abdomen is soft, nondistended, nontender on palpation. EXTREMITIES: Right foot with charcot deformity, healed tma scar with no opening at the plantar aspect, there is some hardened cornified skin at about the first metatarsal with a round less than 1 cm wound about 1.5 cm depth. I probed the wound but I do not fee any sinus tract nor connection to the bony tissues but with purulent drainage. I could feel a brisk dp pulse on the right foot, faint on the left. ANCILLARIES: . LABORATORY DATA: Please see below. IMAGING STUDIES: CT abdomen and pelvis no findings relevant related to her wound or vomiting IMPRESSION AND PLAN: diabetes with gastroparesis, neuropathy possibly also vasculopathy infected wound on lower back infected wound on plantar aspect of right foot (?)neuropathic ulcer will schedule for debridement of both wounds in the OR. I am concerned about accompanying vasculopathy on the right foot. She does have a palpable dp pulse. If wound does not heal appropriately may need to be seen by vascular surgery. Consent obtained from the patient. We discussed problems with healing hanane on the foot. I will get some vascular studies on the foot. Vital Signs Vital Signs Date Time Temp Pulse Resp B/P (MAP) Pulse Ox O2 Delivery O2 Flow Rate FiO2 07/18/19 04:00 98.9 90 14 134/78 (96) 96 Room Air I&Os I&O- Last 24 Hours up to 6 AM 07/18/19 06:00 Intake Total 3171.5 ml Output Total 1600 ml Balance 1571.5 ml Laboratory Data Labs 24H Laboratory Tests 2 07/17/19 08:04: Bedside Glucose (Misc Panel) 158H 07/17/19 09:07: Bedside Glucose (Misc Panel) 157H 07/17/19 10:21: Bedside Glucose (Misc Panel) 147H 07/17/19 11:35: Bedside Glucose (Misc Panel) 156H 07/17/19 14:05: Bedside Glucose (Misc Panel) 150H 07/17/19 14:06: Methicillin-Resist S.aureus DNA PCR NOT DETECTED 07/17/19 16:10: Bedside Glucose (Misc Panel) 150H 07/17/19 18:21: Bedside Glucose (Misc Panel) 160H 07/18/19 00:10: Bedside Glucose (Misc Panel) 114H 07/18/19 05:19: Nucleated Red Blood Cells % (auto) 0.0, Anion Gap 6L, Glomerular Filtration Rate > 60.0, Calcium Level 8.3L 07/18/19 05:26: Bedside Glucose (Misc Panel) 170H CBC/BMP Laboratory Tests 07/18/19 05:19 Microbiology Microbiology 07/17/19 Gram Stain - Final, Resulted 07/17/19 Wound Culture, Resulted Pending 07/17/19 Gram Stain - Final, Resulted 07/17/19 Wound Culture, Resulted Pending 07/16/19 Blood Culture - Preliminary, Resulted No growth after 24 hours . All specim... 07/16/19 Gastrointestinal Tract Panel (PCR) - Final, Complete 07/16/19 Blood Culture - Preliminary, Resulted No growth after 24 hours . All specim... Home Medications Scheduled Insulin Degludec (Tresiba Flextouch U-200) 200 Unit/1 Ml Insuln.pen, 42 UNIT SC QAM, (Reported) Insulin Degludec (Tresiba Flextouch U-200) 200 Unit/1 Ml Insuln.pen, 12 UNIT SC QHS, (Reported) Insulin Human Lispro (Novolog) 100 Unit/1 Ml Vial, 1 DOSE SC AC, (Reported) PER SLIDING SCALE Levetiracetam (Keppra) 1,000 Mg Tablet, 1,000 MG PO BID, (Reported) HAS NOT BEEN FILLED SINCE JUL 2018 Pantoprazole Sodium (Pantoprazole Sodium) 40 Mg Tablet.dr, 40 MG PO DAILY, (Reported) Sertraline HCl (Sertraline HCl) 50 Mg Tablet, 75 MG PO DAILY, (Reported) Scheduled PRN Diazepam (Diazepam) 2 Mg Tablet, 2 MG PO TID PRN for ANXIETY, (Reported) Hydrocodone/Acetaminophen (Hydrocodone-Acetamin 7.5-325) 1 Each Tablet, 1 TAB PO QID PRN for PAIN, (Reported) Oxycodone Hcl (Oxycodone HCl) 15 Mg Tablet, 15 MG PO Q3HP PRN for PAIN, (Repo rted) Allergies Coded Allergies: ciprofloxacin (Verified Allergy, Unknown, SKIN BLISTERS, 07/16/19) gabapentin (Verified Allergy, Unknown, VERTIGO, 07/16/19) pregabalin (Verified Allergy, Unknown, DIARRHEA, 07/16/19) vancomycin (Verified Allergy, Unknown, SKIN BLISTERS, 07/16/19) CHAD CRUM MD Jul 18, 2019 07:50
[2019-07-18] MEDS: PANTOPRAZOLE 40MG INJ (PROTONIX) (C9113) IV SCH ×2 (08:34→20:49)
[2019-07-18] MEDS ORDERED: PROPOFOL 500 MG/50 ML VIAL As Ordered ONE (10:53)
[2019-07-18] MEDS ORDERED: dexameTHASONE 4 MG/ML 1ML VIAL (J1100) As Ordered ONE (10:53)
[2019-07-18] MEDS ORDERED: MIDAZOLAM INJ 2 MG/2 ML VIAL (J2250) As Ordered ONE ×2 (10:53→12:32)
[2019-07-18] MEDS ORDERED: LIDOCAINE 2% INJ 100 MG/5 ML SDV (FOR ANES.) As Ordered ONE (10:53)
[2019-07-18] MEDS ORDERED: fentaNYL 100 MCG/2 ML INJECTION (J3010) As Ordered ONE ×3 (10:53→14:44)
[2019-07-18] MEDS ORDERED: ONDANSETRON 4MG/2ML VIAL (J2405) As Ordered ONE (10:54)
--- NOTE | 2019-07-18 12:26 | IPNPDOC ---
Date Seen The patient was seen on 07/18/19. Progress Note SUBJECTIVE: Patient appeared clinically better today despite being nauseous and still not feeling well. BP stable and even a little high. Afebrile overnight. WBC 19->12. NPO for back wound debridement today with surgery. BS stable 100-200s. No hypoglycemic episode noted. OBJECTIVE PHYSICAL EXAMINATION: VITAL SIGNS: Please see below. General: Alert, lethargic Eyes: Normal sclera, EOMI HENT: Atraumatic Cardiovascular: Normal rate Pulmonary: Clear to auscultation b/l, no wheezing GI: Soft, nontender, nondistended Skin: Warm and dry. Mid-lower back erythematous lesion with necrotic center, tender to touch, about 4x4cm. Neuro: CN grossly intact. No focal deficits. Psych: oriented x 3 LABORATORY DATA, IMAGING STUDIES, MICROBIOLOGY: Please see below. ASSESSMENT AND PLAN: 1. DKA 2/2 IDDM - Resolved. - Had not taken insulin for several days POA due to concern for hypoglycemia. - On presentation: AG 26, HBH >64, pH 7.25 on VBG. - Levemir 10 units daily only at this time as patient cannot tolerate much PO, look out for hypoglycemia. - No standing sliding scale insulin ordered. Will let run a little high before treatment. 2. Abdominal discomfort - DKA vs. gastritis vs. gastroparesis - CT Abdomen/Pelvis showed no significant acute intraabdominal pathology, likely from DKA N/V. - Pain control and Zofran PRN for nausea. - Supportive care, IVF support. 3. Tarry vomitus - Likely 2/2 gastritis. Hb 10 similar to last admission. - Monitor H/H. No evidence of gross/bright red blood at this time. 4. Esophagitis - Recent scope on previous admission showing moderately severe esophagitis/gastritis. - c/w PPI. - Monitor H/H. May need re-peat endoscopy. 5. Lower back wound - Moderate size lower back erythematous wound with necrotic center. - Surgery following. Plan for OR today. - f/u cultures. c/w IV Abx. Code status: Full code Dispo: Home once stable VS, I&O, 24H, Fishbone Vital Signs/I&O Vital Signs Date Time Temp Pulse Resp B/P (MAP) Pulse Ox O2 Delivery O2 Flow Rate FiO2 07/18/19 10:38 16 10/25/19 08:00 97.9 91 153/85 (107) 97 Room Air I&O- Last 24 Hours up to 6 AM 07/18/19 06:00 Intake Total 3171.5 ml Output Total 1600 ml Balance 1571.5 ml Laboratory Data 24H LABS Laboratory Tests 2 07/17/19 14:05: Bedside Glucose (Misc Panel) 150H 07/17/19 14:06: Methicillin-Resist S.aureus DNA PCR NOT DETECTED 07/17/19 16:10: Bedside Glucose (Misc Panel) 150H 07/17/19 18:21: Bedside Glucose (Misc Panel) 160H 07/18/19 00:10: Bedside Glucose (Misc Panel) 114H 07/18/19 05:19: Nucleated Red Blood Cells % (auto) 0.0, Anion Gap 6L, Glomerular Filtration Rate > 60.0, Calcium Level 8.3L 07/18/19 05:26: Bedside Glucose (Misc Panel) 170H 07/18/19 11:59: Bedside Glucose (Misc Panel) 212H CBC/BMP Laboratory Tests 07/18/19 05:19 Microbiology Microbiology 07/17/19 Gram Stain - Final, Resulted 07/17/19 Wound Culture - Preliminary, Resulted Staphylococcus Aureus 07/17/19 Gram Stain - Final, Resulted 07/17/19 Wound Culture, Resulted Pending 07/16/19 Blood Culture - Preliminary, Resulted No growth after 24 hours . All specim... 07/16/19 Gastrointestinal Tract Panel (PCR) - Final, Complete 07/16/19 Blood Culture - Preliminary, Resulted No Growth after 48 hours. All Specime... ELIDA LOPEZ MD Jul 18, 2019 12:26
[2019-07-18] MEDS ORDERED: LEVEMIR (INSULIN DETEMIR) 1 UNITS/0.01ML SC SCH (12:30)
[2019-07-18] MEDS ORDERED: LIDOCAINE 1% SDV INJ 30 ML VIAL As Ordered ONE (13:01)
[2019-07-18] MEDS ORDERED: BUPIVACAINE HCL 0.25% 30 ML VIAL As Ordered ONE (13:02)
[2019-07-18] MEDS ORDERED: levETIRAcetam INJection 1,000 MG in D5W 100 ML IV SCH (13:45)
[2019-07-18] MEDS: fentaNYL 100 MCG/2 ML INJECTION (J3010) IV PRN ×8 (13:50→15:05)
[2019-07-18] MEDS ORDERED: ONDANSETRON 4MG/2ML VIAL (J2405) IV PRN (14:00)
[2019-07-18] MEDS ORDERED: NS 1,000 ML IV SCH (14:00)
[2019-07-18] MEDS ORDERED: MORPHINE 10 MG/ML 1ML VIAL (J2270) As Ordered ONE (14:02)
[2019-07-18] MEDS: MORPHINE 10 MG/ML 1ML VIAL (J2270) IV PRN ×4 (14:15→14:45)
[2019-07-18] MEDS ORDERED: HumaLOG INSULIN (NovoLOG) PER UNIT SC ONE (14:45)
[2019-07-18] MEDS ORDERED: KETOROLAC 30 MG/ML VIAL (J1885) As Ordered ONE (14:45)
[2019-07-18] MEDS ORDERED: KETOROLAC 30 MG/ML VIAL (J1885) IV PRN (14:45)
[2019-07-18] MEDS ORDERED: HumaLOG INSULIN (NovoLOG) PER UNIT As Ordered ONE (15:04)
[2019-07-18] MEDS ORDERED: HYDROMORPHONE HCL 0.5 MG/ 0.5 ML SYRINGE (J1170 PER 1) As Ordered ONE (15:28)
[2019-07-18] MEDS: HYDROMORPHONE HCL 0.5 MG/ 0.5 ML SYRINGE (J1170 PER 1) IV PRN ×2 (15:31→15:36)
--- NOTE | 2019-07-18 16:14 | REP ---
Bilateral lower extremity arterial Doppler was performed secondary to the nonhealing wound right foot. On the right, the ankle brachial index is 1.1. On the right: HEAD WORKER 97.6 cm/s, triphasic Profunda 96.2 cm/s, biphasic SFA proximal 107.0 cm/s, triphasic SFA mid 131.0 cm/s, triphasic SFA distal 126.0 cm/s, triphasic Popliteal artery 70.8 cm/s, triphasic ERIC proximal 22.7 cm/s, triphasic Tibial peroneal trunk 89.5 cm/s, triphasic STRAIGHT KNIFE CUTTER MACHINE proximally 72.7 cm/s, triphasic STRAIGHT KNIFE CUTTER MACHINE distally 70.8 cm/s, triphasic Anterior tibial artery 56.5 cm/s, triphasic On the left the ankle brachial index is 1.1. On the left: HEAD WORKER Inability to scan secondary to bandage material Profunda Inability to scan secondary to bandage material SFA proximal Inability to scan secondary to bandage material SFA mid 129.0 cm/s, triphasic SFA distal 118.0 cm/s, triphasic Popliteal artery 84.8 cm/s, triphasic ERIC proximally 18.6 cm/s, biphasic Tibial peroneal trunk 66.1 cm/s, triphasic STRAIGHT KNIFE CUTTER MACHINE proximally 45.1 cm/s, triphasic STRAIGHT KNIFE CUTTER MACHINE distally 81.4 cm/s, triphasic ERIC distally 40.7 cm/s, triphasic No yumiko abnormality was noted involving the arteries which were able to be scanned as described above. Electronically Signed by Erwin Mendoza DO 07/18/2019 04:24 P
[2019-07-18] MEDS: levETIRAcetam INJection 500 MG in D5W MINI-BAG PLUS 100 ML IV SCH ×2 (16:34→16:53)
[2019-07-18] MEDS ORDERED: KETOROLAC 30 MG/ML VIAL (J1885) IV ONE (20:30)
[2019-07-18] MEDS: HumaLOG INSULIN (NovoLOG) PER UNIT SC SCH (23:48)
[2019-07-19] VITALS: BP 136/89
[2019-07-19] MEDS: levETIRAcetam INJection 500 MG in D5W MINI-BAG PLUS 100 ML IV SCH ×4 (01:38→14:25)
[2019-07-19] MEDS: CEFTAROLINE FOSAMIL 600 MG in D5W MINI-BAG PLUS 50 ML IV SCH ×2 (01:38→15:13)
[2019-07-19] MEDS: MORPHINE 4 MG/ML 1ML VIAL/SYRINGE (J2270) IV PRN ×6 (03:44→21:50)
[2019-07-19 03:53] LABS: HEMATOCRIT 30.7 % (36.0-47.0); HEMOGLOBIN 9.9 g/dl (12.0-15.5); MEAN CORPUSCULAR HEMOGLOBIN 29.6 pg (27.0-33.0); MEAN CORPUSCULAR HGB CONC 32.2 g/dl (32.0-36.5); MEAN CORPUSCULAR VOLUME 91.6 fl (80.0-96.0); PLATELET COUNT, AUTOMATED 331 10^3/uL (150-450); RED BLOOD COUNT 3.35 10^6/uL (4.00-5.40); WHITE BLOOD COUNT 10.1 10^3/uL (4.0-10.0)
[2019-07-19 04:00] VITALS: BP 127/80
[2019-07-19 04:15] LABS: BLOOD UREA NITROGEN 16 MG/DL (7-18); CALCIUM LEVEL 8.5 MG/DL (8.5-10.1); CARBON DIOXIDE LEVEL 26 MEQ/L (21-32); CHLORIDE LEVEL 105 MEQ/L (98-107); CREATININE FOR GFR 0.74 MG/DL (0.55-1.30); GLOMERULAR FILTRATION RATE > 60.0 (>58); GLUCOSE, FASTING 325 MG/DL (70-100); POTASSIUM SERUM 3.9 MEQ/L (3.5-5.1); SODIUM LEVEL 137 MEQ/L (136-145)
[2019-07-19] MEDS: NS 1,000 ML IV SCH ×3 (04:31→20:14)
[2019-07-19 08:00] VITALS: BP 131/86
[2019-07-19] MEDS: PANTOPRAZOLE 40MG INJ (PROTONIX) (C9113) IV SCH ×2 (08:00→20:30)
[2019-07-19] MEDS: LEVEMIR (INSULIN DETEMIR) 1 UNITS/0.01ML SC SCH ×2 (08:00→09:00)
[2019-07-19] MEDS: HumaLOG INSULIN (NovoLOG) PER UNIT SC SCH ×4 (08:00→20:51)
[2019-07-19 08:57] LABS: BLOOD UREA NITROGEN 16 MG/DL (7-18); CALCIUM LEVEL 8.2 MG/DL (8.5-10.1); CARBON DIOXIDE LEVEL 27 MEQ/L (21-32); CHLORIDE LEVEL 106 MEQ/L (98-107); CREATININE FOR GFR 0.64 MG/DL (0.55-1.30); GLOMERULAR FILTRATION RATE > 60.0 (>58); GLUCOSE, FASTING 263 MG/DL (70-100); SODIUM LEVEL 138 MEQ/L (136-145)
--- NOTE | 2019-07-19 10:58 | IPNPDOC ---
Date Seen The patient was seen on 07/19/19. Progress Note SUBJECTIVE: Patient is less nauseous today and continues to improve. BS now above 200 consistently and able to tolerate for PO intake. s/p wound debridement with surgery yesterday and tolerated procedure well. OBJECTIVE PHYSICAL EXAMINATION: VITAL SIGNS: Please see below. General: Alert, no acute distress Eyes: Normal sclera, EOMI HENT: Atraumatic Cardiovascular: Normal rate Pulmonary: Clear to auscultation b/l, no wheezing GI: Soft, nontender, nondistended Skin: Warm and dry. Mid-lower back wound with packing in place, dressing c/d/i. No significant erythema around site noted. Neuro: CN grossly intact. No focal deficits. Psych: oriented x 3 LABORATORY DATA, IMAGING STUDIES, MICROBIOLOGY: Please see below. ASSESSMENT AND PLAN: 1. DKA 2/2 IDDM - Resolved. - Had not taken insulin for several days POA due to concern for hypoglycemia. - On presentation: AG 26, HBH >64, pH 7.25 on VBG. - Increase levemir to 20 units today as patient tolerates more PO intake with ISS coverage. - can likely increase to about 45 units if patient continue to eat well without vomiting. 2. Abdominal discomfort - Improving - DKA vs. gastritis vs. gastroparesis - CT Abdomen/Pelvis showed no significant acute intraabdominal pathology, likely from DKA N/V. - Pain control and Zofran PRN for nausea. - Supportive care, IVF support. 3. Tarry vomitus - Likely 2/2 gastritis. Hb 10 similar to last admission. - Monitor H/H. No evidence of gross/bright red blood at this time. 4. Esophagitis - Recent scope on previous admission showing moderately severe esophagitis/gastritis. - c/w PPI. - Monitor H/H. May need re-peat endoscopy. 5. Lower back wound - Moderate size lower back erythematous wound with necrotic center s/p debrideme nt 07/18. - Surgery following. - f/u cultures. c/w IV Abx. 6. Seizure disorder - resume home med. Unsure why patient documented as hasn't filled since July Code status: Full code Dispo: Home once stable VS, I&O, 24H, Fishbone Vital Signs/I&O Vital Signs Date Time Temp Pulse Resp B/P (MAP) Pulse Ox O2 Delivery O2 Flow Rate FiO2 07/19/19 08:12 97.4 88 14 131/86 97 Room Air I&O- Last 24 Hours up to 6 AM 07/19/19 05:59 Intake Total 3210 ml Output Total 1770 ml Balance 1440 ml Laboratory Data 24H LABS Laboratory Tests 2 07/18/19 11:59: Bedside Glucose (Misc Panel) 212H 07/18/19 14:06: Bedside Glucose (Misc Panel) 213H 07/18/19 17:45: Bedside Glucose (Misc Panel) 238H 07/18/19 23:15: Bedside Glucose (Misc Panel) 357H 07/19/19 03:35: Anion Gap 6L, Glomerular Filtration Rate > 60.0, Calcium Level 8.5 07/19/19 03:40: Nucleated Red Blood Cells % (auto) 0.0 07/19/19 07:51: Bedside Glucose (Misc Panel) 288H 07/19/19 08:22: Anion Gap 5L, Glomerular Filtration Rate > 60.0, Calcium Level 8.2L CBC/BMP Laboratory Tests 07/19/19 03:35 07/19/19 03:40 07/19/19 08:22 Microbiology Microbiology 07/18/19 Gram Stain - Final, Resulted 07/18/19 Wound Culture - Preliminary, Resulted Staphylococcus Aureus 07/18/19 Anaerobic Culture, Resulted Pending 07/17/19 Gram Stain - Final, Complete 07/17/19 Wound Culture - Final, Complete Staphylococcus Aureus 07/17/19 Gram Stain - Final, Resulted 07/17/19 Wound Culture - Preliminary, Resulted Staphylococcus Aureus Strep Agalactiae Group B Corynebacterium Species 07/16/19 Blood Culture - Preliminary, Resulted No Growth after 48 hours. All Specime... 07/16/19 Gastrointestinal Tract Panel (PCR) - Final, Complete 07/16/19 Blood Culture - Preliminary, Resulted No Growth after 48 hours. All Specime... ELIDA LOPEZ MD Jul 19, 2019 10:58
[2019-07-19 12:00] VITALS: BP 119/73
[2019-07-19 14:30] VITALS: BP 100/69
[2019-07-19] MEDS ORDERED: HumaLOG INSULIN (NovoLOG) PER UNIT SC SCH (21:00)
[2019-07-19 22:00] VITALS: BP_SYST 107; BP_SYST 145; BP_DIAS 58; BP_DIAS 70
[2019-07-19] MEDS ORDERED: SODIUM CHLORIDE 0.9% INJ 10 ML SYR IV PRN (22:45)
[2019-07-20] MEDS: levETIRAcetam INJection 500 MG in D5W MINI-BAG PLUS 100 ML IV SCH ×2 (01:36→01:59)
[2019-07-20 02:00] VITALS: BP 117/79
[2019-07-20] MEDS: CEFTAROLINE FOSAMIL 600 MG in D5W MINI-BAG PLUS 50 ML IV SCH ×2 (02:33→12:52)
[2019-07-20] MEDS: MORPHINE 4 MG/ML 1ML VIAL/SYRINGE (J2270) IV PRN ×6 (02:34→20:00)
[2019-07-20] MEDS: SODIUM CHLORIDE 0.9% INJ 10 ML SYR IV SCH ×3 (05:05→22:04)
[2019-07-20 06:00] VITALS: BP 121/83
[2019-07-20 06:41] LABS: HEMATOCRIT 29.9 % (36.0-47.0); HEMOGLOBIN 9.7 g/dl (12.0-15.5); MEAN CORPUSCULAR HGB CONC 32.4 g/dl (32.0-36.5); MEAN CORPUSCULAR VOLUME 92.6 fl (80.0-96.0); PLATELET COUNT, AUTOMATED 319 10^3/uL (150-450); RED BLOOD COUNT 3.23 10^6/uL (4.00-5.40)
[2019-07-20 07:06] LABS: BLOOD UREA NITROGEN 13 MG/DL (7-18); CALCIUM LEVEL 8.1 MG/DL (8.5-10.1); CARBON DIOXIDE LEVEL 28 MEQ/L (21-32); CHLORIDE LEVEL 107 MEQ/L (98-107); CREATININE FOR GFR 0.66 MG/DL (0.55-1.30); GLOMERULAR FILTRATION RATE > 60.0 (>58); GLUCOSE, FASTING 309 MG/DL (70-100); POTASSIUM SERUM 4.2 MEQ/L (3.5-5.1); SODIUM LEVEL 140 MEQ/L (136-145)
[2019-07-20] MEDS: PANTOPRAZOLE 40MG INJ (PROTONIX) (C9113) IV SCH (09:08)
[2019-07-20] MEDS: LEVEMIR (INSULIN DETEMIR) 1 UNITS/0.01ML SC SCH (09:09)
[2019-07-20] MEDS: HumaLOG INSULIN (NovoLOG) PER UNIT SC SCH ×4 (09:10→21:00)
[2019-07-20] MEDS: NS 1,000 ML IV SCH (12:53)
--- NOTE | 2019-07-20 13:49 | IPNPDOC ---
Date Seen The patient was seen on 07/20/19. Progress Note SUBJECTIVE: 43-year-old female with past medical history of diabetes, gastroparesis, seizure disorder, esophagitis admitted for DKA and back/foot wound. Patient was initially admitted to the ICU on an insulin drip, was titrated off the drip. A couple of days ago. Has been tolerating her diet with consistent rise in glucose, currently on the floor without any nausea, vomiting or abdominal pain. She underwent surgical debridement of her right foot and lower back wound, remains on Teflaro, wound cultures pending. Patient has no other complaints at this time, denies shortness of breath, chest pain, headache, abdominal pain or diarrhea. 10 point review of system negative except for above PHYSICAL EXAMINATION: VITAL SIGNS: Please see below. GENERAL: No distress HEENT: Normocephalic, atraumatic, moist mucous membranes NECK: Supple CARDIOVASCULAR EXAMINATION: S1, S2, no murmurs RESPIRATORY EXAMINATION: Clear to auscultation, no wheezing ABDOMINAL EXAMINATION: Soft, nontender, nondistended, positive bowel sounds EXTREMITIES: Range of motion intact SKIN: Lower back wound with packing and surrounding erythema noted, no discharge; right foot wound without any drainage NEUROLOGICAL EXAMINATION: Alert and oriented 3, no focal deficits PSYCHIATRIC EXAMINATION: Calm and cooperative LABORATORY DATA, IMAGING STUDIES, MICROBIOLOGY: Please see below. DVT prophylaxis ordered?: Yes ASSESSMENT AND PLAN: 43-year-old female with history of diabetes, admitted for DKA and back/foot wounds. PROBLEMS: 1. DKA: Resolved, downgraded to the floor, increase Levemir to home dose, sliding scale insulin coverage with fingersticks before meals and bedtime. 2. Back/foot wounds: Status post surgical debridement, continue antibiotics, cultures pending.. 3. Esophagitis:. Continue PPI twice a day. 4. Seizure disorder: Continue Keppra 1 g twice a day, switch IV to by mouth. DVT prophylaxis: Heparin subcutaneous GI prophylaxis: Protonix VS, I&O, 24H, Fishbone Vital Signs/I&O Vital Signs Date Time Temp Pulse Resp B/P (MAP) Pulse Ox O2 Delivery O2 Flow Rate FiO2 07/20/19 13:33 16 07/20/19 07:18 Room Air 07/20/19 06:00 97.6 94 121/83 (96) 99 I&O- Last 24 Hours up to 6 AM 07/20/19 06:00 Intake Total 4400 ml Output Total 1800 ml Balance 2600 ml Laboratory Data 24H LABS Laboratory Tests 2 07/19/19 16:54: Bedside Glucose (Misc Panel) 260H 07/19/19 20:43: Bedside Glucose (Misc Panel) 149H 07/20/19 06:29: Nucleated Red Blood Cells % (auto) 0.0, Anion Gap 5L, Glomerular Filtration Rate > 60.0, Calcium Level 8.1L 07/20/19 08:53: Bedside Glucose (Misc Panel) 311H 07/20/19 11:15: Bedside Glucose (Misc Panel) 219H CBC/BMP Laboratory Tests 07/20/19 06:29 Microbiology Microbiology 07/18/19 Gram Stain - Final, Complete 07/18/19 Wound Culture - Final, Complete Staphylococcus Aureus 07/18/19 Anaerobic Culture - Final, Complete 07/17/19 Gram Stain - Final, Complete 07/17/19 Wound Culture - Final, Complete Staphylococcus Aureus 07/17/19 Gram Stain - Final, Complete 07/17/19 Wound Culture - Final, Complete Morganella Morganii Sp Sibonii Staph.aureus Methicillin Resis Strep Agalactiae Group B Corynebacterium Species 07/16/19 Blood Culture - Preliminary, Resulted No Growth after 72 hours. All specime... 07/16/19 Gastrointestinal Tract Panel (PCR) - Final, Complete 07/16/19 Blood Culture - Preliminary, Resulted No Growth after 72 hours. All specime... BIBIANA PARRY MD Jul 20, 2019 13:48
[2019-07-20 14:00] VITALS: BP 130/80
[2019-07-20] MEDS ORDERED: LEVEMIR (INSULIN DETEMIR) 1 UNITS/0.01ML SC ONE (14:00)
[2019-07-20] MEDS: levETIRAcetam 250MG TABLET (KEPPRA) PO SCH (16:28)
[2019-07-20] MEDS: PANTOPRAZOLE 40MG TAB (PROTONIX) PO SCH (20:06)
[2019-07-20 22:00] VITALS: BP 132/88
[2019-07-21] MEDS: MORPHINE 4 MG/ML 1ML VIAL/SYRINGE (J2270) IV PRN ×4 (00:47→11:05)
[2019-07-21] MEDS: CEFTAROLINE FOSAMIL 600 MG in D5W MINI-BAG PLUS 50 ML IV SCH (01:11)
[2019-07-21 02:00] VITALS: BP 127/86
[2019-07-21 05:46] LABS: HEMATOCRIT 29.9 % (36.0-47.0); HEMOGLOBIN 9.7 g/dl (12.0-15.5); MEAN CORPUSCULAR HEMOGLOBIN 29.7 pg (27.0-33.0); MEAN CORPUSCULAR HGB CONC 32.4 g/dl (32.0-36.5); MEAN CORPUSCULAR VOLUME 91.4 fl (80.0-96.0); PLATELET COUNT, AUTOMATED 349 10^3/uL (150-450); RED BLOOD COUNT 3.27 10^6/uL (4.00-5.40); WHITE BLOOD COUNT 5.8 10^3/uL (4.0-10.0)
[2019-07-21 06:00] VITALS: BP 130/85
[2019-07-21] MEDS: SODIUM CHLORIDE 0.9% INJ 10 ML SYR IV SCH ×3 (06:03→22:00)
[2019-07-21 06:09] LABS: ALBUMIN 2.1 GM/DL (3.2-5.2); ALT/SGPT 13 U/L (12-78); BILIRUBIN,TOTAL 0.1 MG/DL (0.2-1.0); BLOOD UREA NITROGEN 15 MG/DL (7-18); CALCIUM LEVEL 8.5 MG/DL (8.5-10.1); CARBON DIOXIDE LEVEL 34 MEQ/L (21-32); CHLORIDE LEVEL 103 MEQ/L (98-107); CREATININE FOR GFR 0.63 MG/DL (0.55-1.30); GLOMERULAR FILTRATION RATE > 60.0 (>58); GLUCOSE, FASTING 148 MG/DL (70-100); MAGNESIUM LEVEL 1.8 MG/DL (1.8-2.4); PHOSPHORUS LEVEL 2.7 MG/DL (2.5-4.9); POTASSIUM SERUM 4.7 MEQ/L (3.5-5.1); SODIUM LEVEL 139 MEQ/L (136-145); TOTAL PROTEIN 6.4 GM/DL (6.4-8.2)
[2019-07-21] MEDS ORDERED: MAG SULF 1GM/100ML (MAG RUN) 1 GM in IV 1 EA IV ONE (08:00)
[2019-07-21] MEDS: PANTOPRAZOLE 40MG TAB (PROTONIX) PO SCH ×2 (09:20→21:04)
[2019-07-21] MEDS: BACTRIM 160MG/800MG DS TAB PO SCH ×2 (09:21→21:04)
[2019-07-21] MEDS: levETIRAcetam 250MG TABLET (KEPPRA) PO SCH ×2 (09:21→21:04)
[2019-07-21] MEDS: HumaLOG INSULIN (NovoLOG) PER UNIT SC SCH ×4 (09:23→21:00)
[2019-07-21] MEDS: LEVEMIR (INSULIN DETEMIR) 1 UNITS/0.01ML SC SCH ×2 (09:24→09:47)
--- NOTE | 2019-07-21 11:22 | ROOPDOC ---
[facility] Report Of Operation Report of Operation DATE OF PROCEDURE: 07/18/19 PREPROCEDURE DIAGNOSES: Infected wound plantar aspect right foot, possible infected neuropathic ulcer Infected wound with abscess right lower back area at the sacrum. POSTPROCEDURE DIAGNOSES: Same. PROCEDURE: Debridement of infected wound, neuropathic ulcer plantar aspect right foot Debridement and drainage of abscess right lower back wound. SURGEON: Braulio Tolbert MD TUB OPERATOR: Breezy Deutsch, ([facility] ANESTHESIA: Monitored anesthesia care with local anesthesia using 1% lidocaine mixed with 1/4% Marcaine. ESTIMATED BLOOD LOSS: Approximately 20 mL. COMPLICATIONS: None. REMARKS: This is a 43-year-old female diabetic patient admitted with diabetic ketoacidosis was found to have a one-month old draining wound from the plantar aspect underneath the metatarsal level of the first digit on the right foot. She already had a prior TMA on that foot. She also has an irregular hyperemic wound roughly 3 x 2 cm at the sacral level on the right side of the lower back just off the midline that patient reports is about 2 weeks old and she thinks is from a spider bite. DESCRIPTION OF PROCEDURE: Patient is already on regular doses of Levetiracetam since admission to the hospital for the infected wound. She was admitted to the hospital on 07/16/2019 for diabetes ketoacidosis. I probed on the wound on both sides yesterday afternoon and got purulent drainage from both wound areas. She was placed on the left lateral decubitus position with her pressure points padded on a beanbag to maintain the position. She was provided oxygen via facemask and hemodynamic monitoring provided throughout the procedure. The lower back area and right foot were prepped and draped in the usual sterile fashion and separately draped.We paused for a surgical timeout using both pre-incision safety checklist to verify correct patient, procedure site and additional clinical information prior to beginning the procedure I began with the wound on the plantar aspect of the right foot this is in the middle of the cornified thickened skin consistent with a neuropathic ulcer. Patient is a long-term diabetic with diabetic neuropathy and decreased sensation to the foot. She claims she stepped on a piece of broken plate a month back. There is a 1 cm circular opening roughly about 1.5 cm deep. December 23 the wound further and did not see any lateral sinus tract opening this does not seem to track deep into the bone above the area. I used a metal curet to further debridement on the wound base and likewise cautery to excise some of the excess cornified skin surrounding the area and forming part of the base until I got good steady oozing. This was then temporarily packed I then proceeded with debridement of the wound on the lower back area. This is roughly about a 3 x 3 cm hardened cornified blackened skin with some scattered punctate openings draining thick milky purulent material. The necrotic blackened skin was sharply debrided with scalpel and I gradually enlarged the incision line until I get into healthy subcutaneous tissue. I obtained cultures from the back wound. This was enlarged to about 5 x 4 cm and deep to the subcutaneous tissue partly at the superficial portion of the muscle but most of the wound is at the subcutaneous level. I further continued sharp debridement both with Bovie cautery and scalpel to get to healthy skin and subcutaneous tissue. After adequate hemostasis using Bovie cautery this was also packed temporarily. I used a piece of alginate to pack the plantar wound and covered this with a foam dressing. I packed the lower back wound with 1 inch iodoform gauze and placed bulky gauze dressings and tape to cover the lower back wound. Patient tolerated procedure well she was promptly awakened placed back on the stretcher and brought to the recovery room in stable condition. BRAULIO TOLBERT MD Jul 21, 2019 11:22
--- NOTE | 2019-07-21 11:32 | IPNPDOC ---
Text Note Date of Service The patient was seen on 07/21/19. NOTE Patient's wounds were reexamined today she had debridement in both the lower back and plantar wound last Sunday. She reports she has felt much better and her diabetes better controlled after controlling for the wound infection with the mechanical debridement. She complains of discomfort at the lower back area and not much at the right foot. On examination of the plantar wound. This is covered with alginate dressing. There was not much drainage in it. The wound itself appears clean. No evidence yet of healing. On examination of her lower back area is roughly measures 5 x 4 cm through to the subcutaneous tissue only partly at the muscle. The wound appears clean with no active bleeding, no purulent drainage that I could see. Impression and plan Lower back wound status post debridement Neuropathic ulcer on the plantar aspect of the right foot. I will switch to wound VAC on the wound on the lower back and we will start with a request for home wound VAC from her insurance. This will just be changed every 3 days. For the neuropathic wound on the plantar aspect of her right foot, I'll switch the alginate to a hydrocolloid gel to fill up the ulcer and continue with foam dressing. She is allowed to ambulate on the foot. Keep the foot dry. VS,Fishbone, I+O VS, Fishbone, I+O Laboratory Tests 07/21/19 05:20 Vital Signs Date Time Temp Pulse Resp B/P (MAP) Pulse Ox O2 Delivery O2 Flow Rate FiO2 07/21/19 09:35 16 07/21/19 06:00 98.5 81 130/85 (100) 98 Room Air I&O- Last 24 Hours up to 6 AM 07/21/19 06:00 Intake Total 3156 ml Output Total 2600 ml Balance 556 ml CHAD CRUM MD Jul 21, 2019 11:32
--- NOTE | 2019-07-21 12:27 | IPNPDOC ---
Date Seen The patient was seen on 07/21/19. Progress Note SUBJECTIVE: 43-year-old female with past medical history of diabetes, gastroparesis, seizure disorder, esophagitis admitted for DKA and back/foot wound. Patient was initially admitted to the ICU on an insulin drip, was titrated off the drip. A couple of days ago. Has been tolerating her diet with consistent rise in glucose, currently on the floor without any nausea, vomiting or abdominal pain. She underwent surgical debridement of her right foot and lower back wound, remains on Teflaro, wound cultures pending. Patient has no other complaints at this time, denies shortness of breath, chest pain, headache, abdominal pain or diarrhea. 07/21/2019 Patient comfortable in bed, continues to have low back pain with palpation and dressing changes. She is otherwise without any complaints, tolerating her diet without any complaints, fingersticks better controlled with increase in Levemir dose. She was evaluated by general surgery, Yancy for wound VAC. She denies any shortness of breath, chest pain, vomiting, abdominal pain. Review of system is positive for diarrhea. 10 point review of system negative except for above PHYSICAL EXAMINATION: VITAL SIGNS: Please see below. GENERAL: No distress HEENT: Normocephalic, atraumatic, moist mucous membranes NECK: Supple CARDIOVASCULAR EXAMINATION: S1, S2, no murmurs RESPIRATORY EXAMINATION: Clear to auscultation, no wheezing ABDOMINAL EXAMINATION: Soft, nontender, nondistended, positive bowel sounds EXTREMITIES: Range of motion intact SKIN: Lower back wound with packing and surrounding erythema noted, no discharge; right foot wound without any drainage NEUROLOGICAL EXAMINATION: Alert and oriented 3, no focal deficits PSYCHIATRIC EXAMINATION: Calm and cooperative LABORATORY DATA, IMAGING STUDIES, MICROBIOLOGY: Please see below. DVT prophylaxis ordered?: Yes ASSESSMENT AND PLAN: 43-year-old female with history of diabetes, admitted for DKA and back/foot wounds. PROBLEMS: 1. DKA: Resolved, downgraded to the floor, continue home dose Levemir, sliding scale insulin coverage with fingersticks before meals and bedtime. 2. Back/foot wounds: Status post surgical debridement, wound VAC as per surgery, Ceftaroline switched to Bactrim 3. Esophagitis:. Continue PPI twice a day. 4. Seizure disorder: Continue Keppra 1 g twice a day DVT prophylaxis: Heparin subcutaneous GI prophylaxis: Protonix VS, I&O, 24H, Fishbone Vital Signs/I&O Vital Signs Date Time Temp Pulse Resp B/P (MAP) Pulse Ox O2 Delivery O2 Flow Rate FiO2 07/21/19 11:05 16 07/21/19 06:00 98.5 81 130/85 (100) 98 Room Air I&O- Last 24 Hours up to 6 AM 07/21/19 06:00 Intake Total 3156 ml Output Total 2600 ml Balance 556 ml Laboratory Data 24H LABS Laboratory Tests 2 07/20/19 16:14: Bedside Glucose (Misc Panel) 132H 07/20/19 20:30: Bedside Glucose (Misc Panel) 146H 07/21/19 05:20: Nucleated Red Blood Cells % (auto) 0.0, Anion Gap 2L, Glomerular Filtration Rate > 60.0, Calcium Level 8.5, Phosphorus Level 2.7, Magnesium Level 1.8, Total Bilirubin 0.1L, Aspartate Amino Transf (AST/SGOT) 12, Alanine Aminotransferase (ALT/SGPT) 13, Alkaline Phosphatase 81, Total Protein 6.4, Albumin 2.1L, Albumin/Globulin Ratio 0.49L 07/21/19 11:35: Bedside Glucose (Misc Panel) 329H CBC/BMP Laboratory Tests 07/21/19 05:20 Microbiology Microbiology 07/18/19 Gram Stain - Final, Complete 07/18/19 Wound Culture - Final, Complete Staphylococcus Aureus 07/18/19 Anaerobic Culture - Final, Complete 07/17/19 Gram Stain - Final, Complete 07/17/19 Wound Culture - Final, Complete Staphylococcus Aureus 07/17/19 Gram Stain - Final, Complete 07/17/19 Wound Culture - Final, Complete Morganella Morganii Sp Sibonii Staph.aureus Methicillin Resis Strep Agalactiae Group B Corynebacterium Species 07/16/19 Blood Culture - Preliminary, Resulted No Growth after 72 hours. All specime... 07/16/19 Gastrointestinal Tract Panel (PCR) - Final, Complete 07/16/19 Blood Culture - Final, Complete NO GROWTH AFTER 5 DAYS BIBIANA PARRY MD Jul 21, 2019 12:27
[2019-07-21 14:00] VITALS: BP 116/82
[2019-07-21] MEDS: oxyCODONE 5MG TAB PO PRN ×3 (14:27→21:06)
[2019-07-21 22:00] VITALS: BP 102/69
[2019-07-21] MEDS: ANEXSIA, NORCO 7.5MG/325MG TABLET(HYDROCODONE/APAP) PO PRN (22:14)
[2019-07-22] MEDS: oxyCODONE 5MG TAB PO PRN ×6 (00:30→20:10)
[2019-07-22 06:00] VITALS: BP 108/58
[2019-07-22 06:11] LABS: HEMATOCRIT 29.8 % (36.0-47.0); HEMOGLOBIN 9.6 g/dl (12.0-15.5); MEAN CORPUSCULAR HEMOGLOBIN 29.5 pg (27.0-33.0); MEAN CORPUSCULAR HGB CONC 32.2 g/dl (32.0-36.5); MEAN CORPUSCULAR VOLUME 91.7 fl (80.0-96.0); PLATELET COUNT, AUTOMATED 337 10^3/uL (150-450); RED BLOOD COUNT 3.25 10^6/uL (4.00-5.40); WHITE BLOOD COUNT 5.4 10^3/uL (4.0-10.0)
[2019-07-22 06:44] LABS: ALBUMIN 2.2 GM/DL (3.2-5.2); ALT/SGPT 28 U/L (12-78); BILIRUBIN,TOTAL 0.1 MG/DL (0.2-1.0); BLOOD UREA NITROGEN 24 MG/DL (7-18); CALCIUM LEVEL 8.4 MG/DL (8.5-10.1); CARBON DIOXIDE LEVEL 34 MEQ/L (21-32); CHLORIDE LEVEL 97 MEQ/L (98-107); CREATININE FOR GFR 0.75 MG/DL (0.55-1.30); GLOMERULAR FILTRATION RATE > 60.0 (>58); GLUCOSE, FASTING 232 MG/DL (70-100); PHOSPHORUS LEVEL 3.2 MG/DL (2.5-4.9); POTASSIUM SERUM 4.6 MEQ/L (3.5-5.1); SODIUM LEVEL 136 MEQ/L (136-145); TOTAL PROTEIN 6.6 GM/DL (6.4-8.2)
[2019-07-22] MEDS: PANTOPRAZOLE 40MG TAB (PROTONIX) PO SCH ×2 (08:45→20:06)
[2019-07-22] MEDS: BACTRIM 160MG/800MG DS TAB PO SCH ×2 (08:45→20:06)
[2019-07-22] MEDS: levETIRAcetam 250MG TABLET (KEPPRA) PO SCH ×2 (08:45→20:05)
[2019-07-22] MEDS: LEVEMIR (INSULIN DETEMIR) 1 UNITS/0.01ML SC SCH (08:46)
[2019-07-22] MEDS: HumaLOG INSULIN (NovoLOG) PER UNIT SC SCH ×4 (08:46→21:00)
[2019-07-22] MEDS: ANEXSIA, NORCO 7.5MG/325MG TABLET(HYDROCODONE/APAP) PO PRN ×2 (10:21→18:28)
--- NOTE | 2019-07-22 12:02 | IPNPDOC ---
Date Seen The patient was seen on 07/22/19. Progress Note SUBJECTIVE: 43-year-old female with past medical history of diabetes, gastroparesis, seizure disorder, esophagitis admitted for DKA and back/foot wound. Patient was initially admitted to the ICU on an insulin drip, was titrated off the drip. A couple of days ago. Has been tolerating her diet with consistent rise in glucose, currently on the floor without any nausea, vomiting or abdominal pain. She underwent surgical debridement of her right foot and lower back wound, remains on Teflaro, wound cultures pending. Patient has no other complaints at this time, denies shortness of breath, chest pain, headache, abdominal pain or diarrhea. 07/21/2019 Patient comfortable in bed, continues to have low back pain with palpation and dressing changes. She is otherwise without any complaints, tolerating her diet without any complaints, fingersticks better controlled with increase in Levemir dose. She was evaluated by general surgery, Yancy for wound VAC. She denies any shortness of breath, chest pain, vomiting, abdominal pain. Review of system is positive for diarrhea. 07/22/2019 Laying comfortable in bed, without any complaints, mild to moderate pain over a wound VAC, no other complaints at this time. She is tolerating her diet without any issues, awaiting wound VAC approval by insurance prior to discharge. 10 point review of system negative except for above PHYSICAL EXAMINATION: VITAL SIGNS: Please see below. GENERAL: No distress HEENT: Normocephalic, atraumatic, moist mucous membranes NECK: Supple CARDIOVASCULAR EXAMINATION: S1, S2, no murmurs RESPIRATORY EXAMINATION: Clear to auscultation, no wheezing ABDOMINAL EXAMINATION: Soft, nontender, nondistended, positive bowel sounds EXTREMITIES: Range of motion intact SKIN: Lower back with wound VAC in place, no drainage noted at this time. NEUROLOGICAL EXAMINATION: Alert and oriented 3, no focal deficits PSYCHIATRIC EXAMINATION: Calm and cooperative LABORATORY DATA, IMAGING STUDIES, MICROBIOLOGY: Please see below. DVT prophylaxis ordered?: Yes ASSESSMENT AND PLAN: 43-year-old female with history of diabetes, admitted for DKA and back/foot wounds. PROBLEMS: 1. DKA: Resolved, downgraded to the floor, continue home dose Levemir, sliding scale insulin coverage with fingersticks before meals and bedtime. 2. Back/foot wounds: Status post surgical debridement, wound VAC, continue Bactrim, awaiting insurance approval wound VAC prior to discharge. 3. Esophagitis:. Continue PPI twice a day. 4. Seizure disorder: Continue Keppra 1 g twice a day DVT prophylaxis: Heparin subcutaneous GI prophylaxis: Protonix VS, I&O, 24H, Fishbone Vital Signs/I&O Vital Signs Date Time Temp Pulse Resp B/P (MAP) Pulse Ox O2 Delivery O2 Flow Rate FiO2 07/22/19 10:51 18 07/22/19 06:00 96.8 88 108/58 (75) 99 Room Air I&O- Last 24 Hours up to 6 AM 07/22/19 05:59 Intake Total 1565 ml Output Total 1600 ml Balance -35 ml Laboratory Data 24H LABS Laboratory Tests 2 07/21/19 16:52: Bedside Glucose (Misc Panel) 168H 07/21/19 21:11: Bedside Glucose (Misc Panel) 161H 07/22/19 05:47: Nucleated Red Blood Cells % (auto) 0.0, Anion Gap 5L, Glomerular Filtration Rate > 60.0, Calcium Level 8.4L, Phosphorus Level 3.2, Magnesium Level 2.0, Total Bilirubin 0.1L, Aspartate Amino Transf (AST/SGOT) 57H, Alanine Aminotransferase (ALT/SGPT) 28, Alkaline Phosphatase 99, Total Protein 6.6, Albumin 2.2L, Albumin/Globulin Ratio 0.50L 07/22/19 11:49: Bedside Glucose (Misc Panel) 242H CBC/BMP Laboratory Tests 07/22/19 05:47 Microbiology Microbiology 07/18/19 Gram Stain - Final, Complete 07/18/19 Wound Culture - Final, Complete Staphylococcus Aureus 07/18/19 Anaerobic Culture - Final, Complete 07/17/19 Gram Stain - Final, Complete 07/17/19 Wound Culture - Final, Complete Staphylococcus Aureus 07/17/19 Gram Stain - Final, Complete 07/17/19 Wound Culture - Final, Complete Morganella Morganii Sp Sibonii Staph.aureus Methicillin Resis Strep Agalactiae Group B Corynebacterium Species 07/16/19 Blood Culture - Final, Complete NO GROWTH AFTER 5 DAYS 07/16/19 Gastrointestinal Tract Panel (PCR) - Final, Complete 07/16/19 Blood Culture - Final, Complete NO GROWTH AFTER 5 DAYS BIBIANA PARRY MD Jul 22, 2019 12:02
[2019-07-22 14:00] VITALS: BP 98/52
[2019-07-22 22:00] VITALS: BP 97/57
[2019-07-23] MEDS: oxyCODONE 5MG TAB PO PRN ×4 (00:26→11:23)
[2019-07-23] MEDS: ANEXSIA, NORCO 7.5MG/325MG TABLET(HYDROCODONE/APAP) PO PRN (02:04)
[2019-07-23 06:00] VITALS: BP 112/75
[2019-07-23 06:10] LABS: HEMOGLOBIN 9.4 g/dl (12.0-15.5); MEAN CORPUSCULAR HEMOGLOBIN 29.4 pg (27.0-33.0); MEAN CORPUSCULAR HGB CONC 31.3 g/dl (32.0-36.5); MEAN CORPUSCULAR VOLUME 93.8 fl (80.0-96.0); PLATELET COUNT, AUTOMATED 338 10^3/uL (150-450); WHITE BLOOD COUNT 6.1 10^3/uL (4.0-10.0)
[2019-07-23 06:33] LABS: BLOOD UREA NITROGEN 24 MG/DL (7-18); CALCIUM LEVEL 8.9 MG/DL (8.5-10.1); CARBON DIOXIDE LEVEL 32 MEQ/L (21-32); CHLORIDE LEVEL 99 MEQ/L (98-107); CREATININE FOR GFR 0.89 MG/DL (0.55-1.30); GLOMERULAR FILTRATION RATE > 60.0 (>58); GLUCOSE, FASTING 192 MG/DL (70-100); PHOSPHORUS LEVEL 3.9 MG/DL (2.5-4.9); SODIUM LEVEL 135 MEQ/L (136-145)
[2019-07-23] MEDS: BACTRIM 160MG/800MG DS TAB PO SCH (08:33)
[2019-07-23] MEDS: levETIRAcetam 250MG TABLET (KEPPRA) PO SCH (08:33)
[2019-07-23] MEDS: PANTOPRAZOLE 40MG TAB (PROTONIX) PO SCH (08:33)
[2019-07-23] MEDS: HumaLOG INSULIN (NovoLOG) PER UNIT SC SCH ×2 (08:34→11:27)
[2019-07-23] MEDS: LEVEMIR (INSULIN DETEMIR) 1 UNITS/0.01ML SC SCH (08:34)
[2019-07-23] MEDS ORDERED: OXYC15TA76 PO (11:26)
[2019-07-23] MEDS ORDERED: SULF1TAB93 PO (11:26)
[2019-07-23] MEDS ORDERED: HYDR-4514 PO (11:26)
--- NOTE | 2019-07-23 11:33 | DS.PDOC ---
Discharge Summary General Date of Admission Jul 16, 2019 at 13:11 Date of Discharge 07/23/2019 Attending Physician: BIBIANA PARRY MD Discharge Summary PROCEDURES PERFORMED DURING STAY: Incision and drainage, wound VAC. ADMITTING DIAGNOSES: 1. DKA, wounds. DISCHARGE DIAGNOSES: 1. DKA, wounds. COMPLICATIONS/CHIEF COMPLAINT: Diabetic Ketoacidosis Gastritis. HISTORY OF PRESENT ILLNESS: 43-year-old female with past medical history of diabetes mellitus, gastroparesis, esophagitis, was admitted for DKA. She was initially admitted to the ICU on insulin drip, DKA resolved and she was downgraded to the floor. Her insulin regimen has stabilized fingersticks have been within acceptable range for over 72 hours. She also presented with multiple wounds on her right foot and lower back, status post debridement by surgery, now has a wound VAC in place. Her cultures grew MSSA from lower back and MRSA from her right foot, sensitive to Bactrim. She will be discharged on oral Bactrim to complete her antibiotic course. HOSPITAL COURSE: As above. DISCHARGE MEDICATIONS: Please see below. ALLERGIES: Please see below. PHYSICAL EXAMINATION: VITAL SIGNS: Please see below. GENERAL: No distress HEENT: Normocephalic, atraumatic, moist mucous membranes NECK: Supple CARDIOVASCULAR EXAMINATION: S1, S2, no murmurs RESPIRATORY EXAMINATION: Clear to auscultation, no wheezing ABDOMINAL EXAMINATION: Soft, nontender, nondistended, positive bowel sounds EXTREMITIES: Right foot wound, dressings intact. SKIN: Lower back wound, wound VAC in place NEUROLOGICAL EXAMINATION: Alert and oriented 3, no focal deficits PSYCHIATRIC EXAMINATION: Calm and cooperative LABORATORY DATA: Please see below. PROGNOSIS: Guarded ACTIVITY: As tolerated. DIET: Consistent carbs DISCHARGE PLAN: Patient to follow-up with Gen. surgery and PCP in 1-2 weeks DISPOSITION: Home. DISCHARGE INSTRUCTIONS: 1. As above. DISCHARGE CONDITION: Stable. TIME SPENT ON DISCHARGE: Greater than 36 minutes. Vital Signs/I&Os Vital Signs Date Time Temp Pulse Resp B/P (MAP) Pulse Ox O2 Delivery O2 Flow Rate FiO2 07/23/19 11:23 20 07/23/19 06:00 97.2 95 112/75 (87) 97 Room Air I&O- Last 24 Hours up to 6 AM 07/23/19 05:59 Intake Total 2635 ml Output Total 2850 ml Balance -215 ml Laboratory Data Labs 24H Laboratory Tests 2 07/22/19 11:49: Bedside Glucose (Misc Panel) 242H 07/22/19 16:56: Bedside Glucose (Misc Panel) 68L 07/22/19 17:36: Bedside Glucose (Misc Panel) 105 07/22/19 20:48: Bedside Glucose (Misc Panel) 236H 07/23/19 05:39: Nucleated Red Blood Cells % (auto) 0.0, Anion Gap 4L, Glomerular Filtration Rate > 60.0, Calcium Level 8.9, Phosphorus Level 3.9#, Magnesium Level 2.0 07/23/19 11:22: Bedside Glucose (Misc Panel) 166H CBC/BMP Laboratory Tests 07/23/19 05:39 FSBS Laboratory Tests Test 07/22/19 11:49 07/22/19 16:56 07/22/19 17:36 07/22/19 20:48 Range/Units Bedside Glucose (Misc Panel) 242 68 105 236 70-105 MG/DL Test 07/23/19 11:22 Range/Units Bedside Glucose (Misc Panel) 166 70-105 MG/DL Microbiology Microbiology 07/18/19 Gram Stain - Final, Complete 07/18/19 Wound Culture - Final, Complete Staphylococcus Aureus 07/18/19 Anaerobic Culture - Final, Complete 07/17/19 Gram Stain - Final, Complete 07/17/19 Wound Culture - Final, Complete Staphylococcus Aureus 07/17/19 Gram Stain - Final, Complete 07/17/19 Wound Culture - Final, Complete Morganella Morganii Sp Sibonii Staph.aureus Methicillin Resis Strep Agalactiae Group B Corynebacterium Species 07/16/19 Blood Culture - Final, Complete NO GROWTH AFTER 5 DAYS 07/16/19 Gastrointestinal Tract Panel (PCR) - Final, Complete 07/16/19 Blood Culture - Final, Complete NO GROWTH AFTER 5 DAYS Discharge Medications Scheduled Insulin Degludec (Tresiba Flextouch U-200) 200 Unit/1 Ml Insuln.pen, 42 UNIT SC QAM, (Reported) Insulin Degludec (Tresiba Flextouch U-200) 200 Unit/1 Ml Insuln.pen, 12 UNIT SC QHS, (Reported) Insulin Human Lispro (Novolog) 100 Unit/1 Ml Vial, 1 DOSE SC AC, (Reported) PER SLIDING SCALE Levetiracetam (Keppra) 1,000 Mg Tablet, 1,000 MG PO BID, (Reported) HAS NOT BEEN FILLED SINCE JUL 2018 Pantoprazole Sodium (Pantoprazole Sodium) 40 Mg Tablet.dr, 40 MG PO DAILY, (Reported) Sertraline HCl (Sertraline HCl) 50 Mg Tablet, 75 MG PO DAILY, (Reported) Sulfamethoxazole/Trimethoprim (Sulfamethoxazole-Tmp Ds Tablet) 1 Each Tablet, 2 TAB PO BID Scheduled PRN Diazepam (Diazepam) 2 Mg Tablet, 2 MG PO TID PRN for ANXIETY, (Reported) Hydrocodone/Acetaminophen (Hydrocodone-Acetamin 7.5-325) 1 Each Tablet, 1 TAB PO QID PRN for PAIN Oxycodone Hcl (Oxycodone HCl) 15 Mg Tablet, 15 MG PO Q3HP PRN for PAIN Allergies Coded Allergies: ciprofloxacin (Verified Allergy, Unknown, SKIN BLISTERS, 07/16/19) vancomycin (Verified Allergy, Unknown, SKIN BLISTERS, 07/16/19) gabapentin (Verified Adverse Reaction, Unknown, VERTIGO, 07/21/19) pregabalin (Verified Adverse Reaction, Unknown, DIARRHEA, 07/21/19) BIBIANA PARRY MD Jul 23, 2019 11:33
[2019-07-23] MEDS ORDERED: SOD POLYSTYRENE SULFONATE SUSP 15 GM/60 ML UD PO ONE (12:00)
== END 2019-07-23 12:45 | disposition home health service (06) | DRG 623 ==
LOC: M ED 08:55 → EDBD 08:55 → EEVIPCON 13:11 → M ED INP 13:11 → M ICU 15:35 → M MSPAV 07-19 13:47
PROVIDERS: ADMIT Student in an Organized Health Care Education/Training Program; ATTEND Internal Medicine
PROC: 0JB70ZZ Excision of Back Subcutaneous Tissue and Fascia, Open Approach (ICD-10-PCS; principal; 2019-07-18 13:00)
PROC: 0HBMXZZ Excision of Right Foot Skin, External Approach (ICD-10-PCS; 2019-07-21)
DX: E10.10 Type 1 diabetes mellitus with ketoacidosis without coma (principal); L03.312 Cellulitis of back [any part except buttock and flank]; S31.050A Open bite of lower back and pelvis without penetration into retroperitoneum, initial encounter; E10.43 Type 1 diabetes mellitus with diabetic autonomic (poly)neuropathy; K29.70 Gastritis, unspecified, without bleeding; K20.9 Esophagitis, unspecified; E10.621 Type 1 diabetes mellitus with foot ulcer; B95.61 Methicillin susceptible Staphylococcus aureus infection as the cause of diseases classified elsewhere; B95.62 Methicillin resistant Staphylococcus aureus infection as the cause of diseases classified elsewhere; Z79.4 Long term (current) use of insulin; Z79.899 Other long term (current) drug therapy; Z88.8 Allergy status to other drugs, medicaments and biological substances; Z91.14 Patient's other noncompliance with medication regimen; F17.210 Nicotine dependence, cigarettes, uncomplicated; G40.909 Epilepsy, unspecified, not intractable, without status epilepticus; L97.519 Non-pressure chronic ulcer of other part of right foot with unspecified severity; W57.XXXA Bitten or stung by nonvenomous insect and other nonvenomous arthropods, initial encounter; Y92.9 Unspecified place or not applicable

== ENCOUNTER 2019-08-09 10:20 | Emergency (ER) | payer MEDICARE, MEDICAID ==
[~2019-08-09 10:20] MED LIST changes: +HYDR-4514 PO; +PANT40TA3 PO; +SULF1TAB93 PO
[2019-08-09] MEDS ORDERED: NS 1,000 ML IV ONE ×2 (10:45→12:45)
[2019-08-09 10:57] LABS: VENOUS HCO3 29.4 MEQ/L (23.0-27.0); VENOUS O2 SATURATION 73.3 % (60.0-80.0); VENOUS PARTIAL PRESSURE CO2 47.1 mmHg (38.0-50.0); VENOUS PARTIAL PRESSURE O2 37.4 mmHg (30.0-50.0); VENOUS PH 7.413 UNITS (7.330-7.430); VENOUS STANDARD HCO3 27.5 MEQ/L; VENOUS TOTAL CO2 30.8 MEQ/L (24.0-28.0)
[2019-08-09] MEDS ORDERED: HALOPERIDOL 5 MG/ML VIAL (J1630) IV ONE (11:00)
[2019-08-09 11:01] LABS: BASO # 0.1 10^3/uL (0.0-0.2); BASO % 0.7 % (0.0-1.0); HEMOGLOBIN 12.5 g/dl (12.0-15.5); LYMPH # 1.2 10^3/uL (1.5-5.0); LYMPH % 17.3 % (24.0-44.0); MEAN CORPUSCULAR HEMOGLOBIN 28.6 pg (27.0-33.0); MEAN CORPUSCULAR HGB CONC 31.3 g/dl (32.0-36.5); MEAN CORPUSCULAR VOLUME 91.5 fl (80.0-96.0); MONO # 0.3 10^3/uL (0.0-0.8); MONO % 4.2 % (0.0-5.0); NEUTROPHILS # 5.6 10^3/uL (1.5-8.5); NEUTROPHILS % 77.5 % (36.0-66.0); PLATELET COUNT, AUTOMATED 433 10^3/uL (150-450); RED BLOOD COUNT 4.37 10^6/uL (4.00-5.40); WHITE BLOOD COUNT 7.2 10^3/uL (4.0-10.0)
[2019-08-09 11:16] LABS: HCG, SERUM QUALITATIVE NEGATIVE (NEGATIVE)
[2019-08-09 11:21] LABS: HEMOGLOBIN A1c 11.9 %
[2019-08-09 11:40] LABS: ALBUMIN 3.5 GM/DL (3.2-5.2); ALT/SGPT 14 U/L (12-78); BILIRUBIN,DIRECT < 0.1 MG/DL (0.0-0.2); BILIRUBIN,TOTAL 0.4 MG/DL (0.2-1.0); BLOOD UREA NITROGEN 26 MG/DL (7-18); CALCIUM LEVEL 10.5 MG/DL (8.5-10.1); CARBON DIOXIDE LEVEL 35 MEQ/L (21-32); CHLORIDE LEVEL 87 MEQ/L (98-107); CREATININE FOR GFR 1.11 MG/DL (0.55-1.30); GLOMERULAR FILTRATION RATE 57.7 (>58); GLUCOSE, FASTING 468 MG/DL (70-100); POTASSIUM SERUM 3.9 MEQ/L (3.5-5.1); SODIUM LEVEL 137 MEQ/L (136-145); TOTAL PROTEIN 9.1 GM/DL (6.4-8.2)
[2019-08-09] MEDS ORDERED: KETOROLAC 30 MG/ML VIAL (J1885) IV ONE (11:45)
[2019-08-09] MEDS ORDERED: HumuLIN R (REGULAR) INSULIN (NovoLIN R) **100U/ML** PER UNIT SC ONE (11:45)
--- NOTE | 2019-08-09 11:47 | REP ---
Portable chest x-ray: Single view. History: Diabetic ketoacidosis. Comparison chest x-ray: July 16, 2019. Findings: Monitoring electrodes and a loop recorder are seen overlying the chest. Lungs are well inflated and remain clear. No infiltrate is seen. The pleural angles are excluded from the field of view bilaterally. Heart is not enlarged. Pulmonary vasculature is not increased. Impression: No active disease. Electronically Signed by Cayden Reyes MD 08/09/2019 11:39 A
[2019-08-09] MEDS ORDERED: oxyCODONE 5MG TAB PO ONE (14:15)
[2019-08-09 14:34] LABS: AMPHETAMINES LEVEL URINE NEGATIVE (NEGATIVE); BARBITURATES URINE NEGATIVE (NEGATIVE); BENZODIAZEPINES URINE NEGATIVE (NEGATIVE); CANNABINOIDS URINE POSITIVE (NEGATIVE); COCAINE METABOLITE URINE NEGATIVE (NEGATIVE); METHADONE URINE NEGATIVE (NEGATIVE); OPIATES URINE NEGATIVE (NEGATIVE); PHENCYCLIDINE URINE NEGATIVE (NEGATIVE)
[2019-08-09 14:49] LABS: VENOUS BASE EXCESS 11.4 (-2.0-2.0); VENOUS HCO3 35.4 MEQ/L (23.0-27.0); VENOUS O2 SATURATION 98.7 % (60.0-80.0); VENOUS PARTIAL PRESSURE CO2 44.3 mmHg (38.0-50.0); VENOUS PARTIAL PRESSURE O2 126.2 mmHg (30.0-50.0); VENOUS PH 7.521 UNITS (7.330-7.430); VENOUS STANDARD HCO3 35.2 MEQ/L; VENOUS TOTAL CO2 36.8 MEQ/L (24.0-28.0)
[2019-08-09] MEDS ORDERED: cloNIDine 0.1 MG TAB PO ONE (15:45)
[2019-08-09 15:46] VITALS: BP 154/94
[2019-08-09 16:24] VITALS: BP 111/72
--- NOTE | 2019-08-10 12:04 | ECGEPIP ---
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
== END 2019-08-09 17:25 | disposition home or self-care (01) ==
LOC: EDBD 10:20 → M ED 10:20
DX: F11.23 Opioid dependence with withdrawal (principal); E10.65 Type 1 diabetes mellitus with hyperglycemia; I10 Essential (primary) hypertension; Z79.4 Long term (current) use of insulin; Z88.1 Allergy status to other antibiotic agents; Z88.8 Allergy status to other drugs, medicaments and biological substances
CPT/HCPCS: 71045; 80048; 80076; 80307; 81001; 82803; 83036; 84703; 85025; 86850; 86900; 86901; 87507; 93005; 93041; 96361; 96374; 96375; 99285; J1630; J1885

== ENCOUNTER 2019-09-20 12:11 | Inpatient (IN) | payer MEDICARE, MEDICAID ==
[2019-09-20] MEDS ORDERED: ONDANSETRON 4MG/2ML VIAL (J2405) IV ONE (12:45)
[2019-09-20] MEDS ORDERED: NS 1,000 ML IV ONE ×3 (12:45→17:30)
[2019-09-20] MEDS ORDERED: PANTOPRAZOLE 40MG INJ (PROTONIX) (C9113) IV ONE (12:45)
[2019-09-20 13:25] LABS: VENOUS BASE EXCESS -1.8 (-2.0-2.0); VENOUS HCO3 24.2 MEQ/L (23.0-27.0); VENOUS O2 SATURATION 78.9 % (60.0-80.0); VENOUS PARTIAL PRESSURE O2 45.3 mmHg (30.0-50.0); VENOUS PH 7.339 UNITS (7.330-7.430); VENOUS STANDARD HCO3 22.5 MEQ/L; VENOUS TOTAL CO2 25.6 MEQ/L (24.0-28.0)
--- NOTE | 2019-09-20 13:31 | REP ---
Clinical: Abdominal pain. Technique: Upright view of the chest with supine and cross-table lateral views of the abdomen and pelvis. Findings: Frontal view of the chest is essentially unremarkable and without free air below diaphragm to suspect pneumoperitoneum. Bowel gas pattern is nonspecific and without obstruction or perforation. No organomegaly. No abnormal calcifications. Skeletal structures are grossly intact. Sclerotic focus in the right iliac bone of uncertain significance. Impression: Nonspecific bowel gas pattern. Electronically Signed by Morris Irene MD 09/20/2019 01:24 P
[2019-09-20 13:32] LABS: BASO % 0.3 % (0.0-1.0); LYMPH # 1.2 10^3/uL (1.5-5.0); LYMPH % 8.3 % (24.0-44.0); MEAN CORPUSCULAR HEMOGLOBIN 28.3 pg (27.0-33.0); MEAN CORPUSCULAR HGB CONC 31.8 g/dl (32.0-36.5); MEAN CORPUSCULAR VOLUME 88.9 fl (80.0-96.0); MONO # 1.1 10^3/uL (0.0-0.8); MONO % 7.5 % (0.0-5.0); NEUTROPHILS # 12.4 10^3/uL (1.5-8.5); NEUTROPHILS % 83.2 % (36.0-66.0); PLATELET COUNT, AUTOMATED 433 10^3/uL (150-450); RED BLOOD COUNT 4.95 10^6/uL (4.00-5.40); WHITE BLOOD COUNT 14.9 10^3/uL (4.0-10.0)
[2019-09-20 13:44] LABS: INR 1.1; PROTHROMBIN TIME 13.9 SECONDS (11.8-14.0)
[2019-09-20 14:06] LABS: ACETONE/KETONE 44.37 MG/DL (<2.81); ALBUMIN 3.7 GM/DL (3.2-5.2); ALT/SGPT 13 U/L (12-78); BILIRUBIN,DIRECT < 0.1 MG/DL (0.0-0.2); BILIRUBIN,TOTAL 0.3 MG/DL (0.2-1.0); BLOOD UREA NITROGEN 35 MG/DL (7-18); CALCIUM LEVEL 10.4 MG/DL (8.5-10.1); CARBON DIOXIDE LEVEL 24 MEQ/L (21-32); CHLORIDE LEVEL 101 MEQ/L (98-107); CK-MB VALUE MASS < 1.0 NG/ML (<3.6); CPK CREATINE PHOSPHOKINASE 26 U/L (26-192); CREATININE FOR GFR 1.58 MG/DL (0.55-1.30); ETHYL ALCOHOL (ETHANOL) < 0.003 % (0.000-0.010); GLOMERULAR FILTRATION RATE 38.4 (>58); GLUCOSE, FASTING 321 MG/DL (70-100); LIPASE 20 U/L (73-393); MB/CK RELATIVE INDEX 3.85 (< OR =4); POTASSIUM SERUM 3.9 MEQ/L (3.5-5.1); SODIUM LEVEL 142 MEQ/L (136-145); TOTAL PROTEIN 9.3 GM/DL (6.4-8.2); TROPONIN I < 0.02 NG/ML (< 0.10)
[2019-09-20] MEDS ORDERED: HumuLIN R (REGULAR) INSULIN (NovoLIN R) **100U/ML** PER UNIT IV ONE (14:45)
[2019-09-20] MEDS ORDERED: PROMETHAZINE INJ 25 MG/ML VIAL (J2550) IV ONE (15:45)
[2019-09-20] MEDS ORDERED: DIAZ5TAB PO (16:53)
[2019-09-20] MEDS ORDERED: OXYC15TA76 PO (16:53)
[2019-09-20] MEDS ORDERED: HYDR-4514 PO (16:53)
[2019-09-20] MEDS ORDERED: NS 1,000 ML IV SCH (17:00)
[2019-09-20] MEDS ORDERED: INSULIN HUMAN REGULAR 100 UNITS in NS 99 ML IV SCH (17:00)
--- NOTE | 2019-09-20 17:17 | HPEPDOC ---
General Date of Admission 09/20/19 Date of Service: Sep 20, 2019 Chief Complaint The patient is a 43-year-old female admitted with a reason for visit of Vomiting. Source: Patient Exam Limitations: No limitations Timing/Duration: Day(s) Severity: Severe Associated Symptoms: Fever, Chills, Nausea, Vomiting History of Present Illness Patient is 43 years old female with past medical history of type 1 diabetes, gastroparesis, seizure disorder, esophagitis admitted for DKA. Patient stated that on the Rachana she developed cough with fever and chills associated with greenish sputum production. Today patient developed multiple episodes of vomiting and nausea, she stated that she didn't miss a dose of insulin. In emergency room patient was found to have glucose level of 321, leukocytosis of 14, creatinine 1.5, anion gap of 17, ketonuria. Beta hydroxybutyrate 44.3 Home Medications Scheduled Insulin Degludec (Tresiba Flextouch U-200) 200 Unit/1 Ml Insuln.pen, 42 UNIT SC QAM, (Reported) Insulin Degludec (Tresiba Flextouch U-200) 200 Unit/1 Ml Insuln.pen, 12 UNIT SC QHS, (Reported) Insulin Human Lispro (Novolog) 100 Unit/1 Ml Vial, 1 DOSE SC AC, (Reported) PER SLIDING SCALE Levetiracetam (Keppra) 1,000 Mg Tablet, 1,000 MG PO BID, (Reported) HAS NOT BEEN FILLED SINCE JUL 2018 Pantoprazole Sodium (Pantoprazole Sodium) 40 Mg Tablet.dr, 40 MG PO DAILY, (Reported) Sertraline HCl (Sertraline HCl) 50 Mg Tablet, 75 MG PO DAILY, (Reported) Scheduled PRN Diazepam (Diazepam) 5 Mg Tablet, 5 MG PO BID PRN for ANXIETY, (Reported) Hydrocodone/Acetaminophen (Hydrocodone-Acetamin 7.5-325) 1 Each Tablet, 1 TAB PO QID PRN for PAIN, (Reported) Oxycodone Hcl (Oxycodone HCl) 15 Mg Tablet, 15 MG PO Q3H PRN for PAIN, (Reported) Allergies Coded Allergies: ciprofloxacin (Verified Allergy, Unknown, SKIN BLISTERS, 07/16/19) vancomycin (Verified Allergy, Unknown, SKIN BLISTERS, 07/16/19) gabapentin (Verified Adverse Reaction, Unknown, VERTIGO, 07/21/19) pregabalin (Verified Adverse Reaction, Unknown, DIARRHEA, 07/21/19) Past Medical History Medical History type 1 diabetes, gastroparesis, seizure disorder, esophagitis Surgical History Family History Both parents have type 1 diabetes Social History * Smoker: Denies Alcohol: Denies Drugs: denies A-FIB/CHADSVASC A-FIB History Current/History of A-Fib/PAF?: No Current PO Anticoag Therapy: No Review of Systems Constitutional: Reports: Chills, Fever Eyes: Denies: Pain, Vision change ENT: Reports: Sinus Congestion; Denies: Head Aches Skin: Denies: Rash, Lesions Pulmonary: Reports: Cough, Other Symptoms (greenish sputum); Denies: Dyspnea Cardiovascular: Denies: Chest Pain, Palpitations Gastrointestinal: Reports: Nausea, Vomiting Genitourinary: Reports: Dysuria Hematologic: Denies: Bruising, Bleeding Excessively Endocrine: Reports: Polydipsia, Polyuria; Denies: Polyphagia Musculoskeletal: Denies: Neck Pain Neurological: Denies: Weakness, Numbness Psych: Reports: Mood Normal Physical Examination General Exam: Positive: Alert, Cooperative, Moderate Distress Eye Exam: Positive: PERRLA ENT Exam: Positive: Atraumatic Neck Exam: Positive: Supple; Negative: JVD Chest Exam: Positive: Rhonchi Heart Exam: Positive: Tachycardic Telemetry: Positive: Sinus Abdomen Exam: Positive: BS Hypoactive, Soft Extremity Exam: Positive: Other (small deep wound on plantar surface of foot 1 cm ,depth around 1 cm, not imflammed); Negative: Clubbing, Cyanosis Skin Exam: Positive: Nl turgor and temperature Neuro Exam: Positive: Strength at 5/5 X4 ext, Cranial Nerves 3-12 NL Psych Exam: Positive: Mental status NL Vital Signs Vital Signs Date Time Temp Pulse Resp B/P (MAP) Pulse Ox O2 Delivery O2 Flow Rate FiO2 09/20/19 16:48 98.6 09/20/19 16:30 116 120/77 (91) 98 Laboratory Data Labs 24H Laboratory Tests 2 09/20/19 13:02: Immature Granulocyte % (Auto) 0.7, Neutrophils (%) (Auto) 83.2H, Lymphocytes (%) (Auto) 8.3L, Monocytes (%) (Auto) 7.5H, Eosinophils (%) (Auto) 0.0, Basophils (%) (Auto) 0.3, Neutrophils # (Auto) 12.4H, Lymphocytes # (Auto) 1.2L, Monocytes # (Auto) 1.1H, Eosinophils # (Auto) 0.0, Basophils # (Auto) 0.0, Nucleated Red Blood Cells % (auto) 0.0, Anion Gap 17H, Glomerular Filtration Rate 38.4L, Calcium Level 10.4H, Total Bilirubin 0.3, Direct Bilirubin < 0.1, Aspartate Amino Transf (AST/SGOT) 9, Alanine Aminotransferase (ALT/SGPT) 13, Alkaline Phosphatase 117, Total Creatine Kinase 26, Creatine Kinase MB < 1.0, Creatine Kinase MB Relative Index 3.85, Troponin I < 0.02, Total Protein 9.3H, Albumin 3.7, Albumin/Globulin Ratio 0.66L, Lipase 20L, Ethyl Alcohol Level < 0.003, B-Hydroxybutyrate 44.37H 09/20/19 13:03: Prothrombin Time 13.9, Prothromb Time International Ratio 1.10, Blood Gas Bicarbonate Standard 22.5, Venous Blood pH 7.339, Venous Blood Partial Pressure CO2 46.0, Venous Blood Partial Pressure O2 45.3, Venous Blood Total Carbon Dioxide 25.6, Venous Blood HCO3 24.2, Venous Blood Oxygen Saturation 78.9, Venous Blood Base Excess -1.8, Estimated Mean Plasma Glucose 355H, Hemoglobin A1c 14.0 09/20/19 13:05: Lactic Acid Level 1.5 09/20/19 15:30: Bedside Glucose (Misc Panel) 276H 09/20/19 16:32: Bedside Glucose (Misc Panel) 227H CBC/BMP Laboratory Tests 09/20/19 13:02 Assessment/Plan Patient is 43 years old female with past medical history of type 1 diabetes, gastroparesis, seizure disorder, esophagitis admitted for DKA. Patient stated that on the she developed cough with fever and chills associated with greenish sputum production. Today patient developed multiple episodes of vomiting and nausea, she stated that she didn't miss a dose of insulin. In emergency room patient was found to have glucose level of 321, leukocytosis of 14, creatinine 1.5, anion gap of 17, ketonuria. 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
[2019-09-20] MEDS ORDERED: KCL 10MEQ/100ML SWI (KRUN) 10 MEQ in IV 1 EA IV ONE ×2 (17:30→18:30)
[2019-09-20] MEDS ORDERED: oxyCODONE 5MG TAB PO PRN (17:30)
[2019-09-20] MEDS ORDERED: ANEXSIA, NORCO 7.5MG/325MG TABLET(HYDROCODONE/APAP) PO PRN (17:30)
[2019-09-20] MEDS ORDERED: diazePAM 5 MG TAB PO PRN (17:30)
[2019-09-20 17:50] LABS: PHOSPHORUS LEVEL 2.7 MG/DL (2.5-4.9)
[2019-09-20] MEDS ORDERED: cefTRIAXone SOD 1 GM in D5W MINI-BAG PLUS 50 ML IV SCH (18:00)
[2019-09-20 18:50] VITALS: BP 139/100
[2019-09-20 20:00] VITALS: BP 124/84
[2019-09-20] MEDS ORDERED: COMBIVENT RESPIMAT 100-20MCG INHALER 4GM INH SCH (20:00)
[2019-09-20 20:58] LABS: MAGNESIUM LEVEL 1.9 MG/DL (1.8-2.4)
[2019-09-20] MEDS ORDERED: KCL 20MEQ IN 100ML SWI (KRUN) 20 MEQ in IV 1 EA IV ONE ×2 (21:00)
[2019-09-20] MEDS ORDERED: CHLORHEXIDINE GLUCONATE 0.12 % 15ML UDC (PERIDEX ORAL RINSE) MT SCH (21:00)
[2019-09-20 21:08] LABS: VENOUS BASE EXCESS -3.5 (-2.0-2.0); VENOUS HCO3 22.2 MEQ/L (23.0-27.0); VENOUS O2 SATURATION 90.1 % (60.0-80.0); VENOUS PARTIAL PRESSURE CO2 42.4 mmHg (38.0-50.0); VENOUS PARTIAL PRESSURE O2 60.3 mmHg (30.0-50.0); VENOUS PH 7.336 UNITS (7.330-7.430); VENOUS STANDARD HCO3 21.4 MEQ/L; VENOUS TOTAL CO2 23.5 MEQ/L (24.0-28.0)
[2019-09-20] MEDS: levETIRAcetam 250MG TABLET (KEPPRA) PO SCH (21:19)
[2019-09-20] MEDS: SERTRALINE HCL 25 MG TABLET PO SCH (21:19)
[2019-09-20 21:32] LABS: CALCIUM LEVEL 9.1 MG/DL (8.5-10.1); CREATININE FOR GFR 1.39 MG/DL (0.55-1.30); GLOMERULAR FILTRATION RATE 44.5 (>58); MAGNESIUM LEVEL 1.9 MG/DL (1.8-2.4); PHOSPHORUS LEVEL 2.2 MG/DL (2.5-4.9); POTASSIUM SERUM 3.4 MEQ/L (3.5-5.1)
[2019-09-20] MEDS ORDERED: KCL 20MEQ IN D5/.45NACL 1000ML As Ordered ONE (21:52)
[2019-09-20] MEDS: AZITHROMYCIN INJ 500 MG, VIAL MATE ADAPTER 1 EACH in D5W 250 ML IV SCH (21:54)
[2019-09-20] MEDS: INSULIN IV RATE CHANGE DOCUMENTATION ML/HR XX SCH ×2 (21:57→23:16)
[2019-09-20] MEDS ORDERED: KCL 20MEQ IN D5/NS 1000ML 1,000 ML IV SCH (22:00)
[2019-09-20] MEDS: KCL 20MEQ IN D5/0.45NS 1000ML 1,000 ML IV SCH (22:19)
[2019-09-20 22:43] LABS: GLUCOSE, URINE (UA) MANUAL 4+(1000 MG/DL) mg/dL (NEGATIVE); KETONE, URINE MANUAL 3+ mg/dL (NEGATIVE); UROBILINOGEN, URINE MANUAL NORMAL (NORMAL)
[2019-09-20 22:44] LABS: BILIRUBIN, URINE MANUAL NEGATIVE (NEGATIVE)
[2019-09-20 22:46] LABS: AMPHETAMINES LEVEL URINE NEGATIVE (NEGATIVE); BACTERIA, URINE SMALL AMOUNT; BARBITURATES URINE NEGATIVE (NEGATIVE); BENZODIAZEPINES URINE NEGATIVE (NEGATIVE); CANNABINOIDS URINE POSITIVE (NEGATIVE); COCAINE METABOLITE URINE NEGATIVE (NEGATIVE); HYALINE CAST, URINE NONE SEEN /lpf (0-1); METHADONE URINE NEGATIVE (NEGATIVE); OPIATES URINE POSITIVE (NEGATIVE); PHENCYCLIDINE URINE NEGATIVE (NEGATIVE); SQUAMOUS EPITHELIAL CELL URINE SMALL AMOUNT /hpf (SMALL AMT)
[2019-09-20 23:16] LABS: VENOUS BASE EXCESS -5.3 (-2.0-2.0); VENOUS HCO3 19.6 MEQ/L (23.0-27.0); VENOUS O2 SATURATION 93.5 % (60.0-80.0); VENOUS PARTIAL PRESSURE CO2 36.3 mmHg (38.0-50.0); VENOUS PARTIAL PRESSURE O2 69.7 mmHg (30.0-50.0); VENOUS PH 7.351 UNITS (7.330-7.430); VENOUS TOTAL CO2 20.8 MEQ/L (24.0-28.0)
[2019-09-20] MEDS: cefTRIAXone SOD 1 GM in D5W MINI-BAG PLUS 50 ML IV SCH (23:22)
[2019-09-20] MEDS: HEPARIN SOD (PORCINE) 5000 UNITS/ML VIAL SC SCH (23:22)
[2019-09-20 23:42] LABS: CALCIUM LEVEL 8.6 MG/DL (8.5-10.1); CREATININE FOR GFR 1.28 MG/DL (0.55-1.30); GLOMERULAR FILTRATION RATE 48.9 (>58); MAGNESIUM LEVEL 1.7 MG/DL (1.8-2.4); PHOSPHORUS LEVEL 1.7 MG/DL (2.5-4.9); POTASSIUM SERUM 3.6 MEQ/L (3.5-5.1)
[2019-09-21] VITALS (7 sets, daily range): BP systolic 92–152; BP diastolic 60–97
[2019-09-21] MEDS: INSULIN IV RATE CHANGE DOCUMENTATION ML/HR XX SCH ×3 (00:04→02:34)
[2019-09-21] MEDS ORDERED: IPRATROPIUM 0.5MG/ALBUTEROL 2.5MG INH SOL UD 3ML (DUONEB)(J7620) NEB PRN (00:30)
[2019-09-21] MEDS: ONDANSETRON 4MG/2ML VIAL (J2405) IV PRN ×4 (00:39→20:16)
[2019-09-21] MEDS ORDERED: MAG SULF 1GM/100ML (MAG RUN) 1 GM in IV 1 EA IV ONE (00:45)
[2019-09-21 01:56] LABS: VENOUS BASE EXCESS -0.7 (-2.0-2.0); VENOUS HCO3 24.6 MEQ/L (23.0-27.0); VENOUS O2 SATURATION 90.9 % (60.0-80.0); VENOUS PARTIAL PRESSURE O2 59.1 mmHg (30.0-50.0); VENOUS PH 7.375 UNITS (7.330-7.430); VENOUS STANDARD HCO3 23.8 MEQ/L; VENOUS TOTAL CO2 25.9 MEQ/L (24.0-28.0)
[2019-09-21 02:15] LABS: CALCIUM LEVEL 8.6 MG/DL (8.5-10.1); CREATININE FOR GFR 1.28 MG/DL (0.55-1.30); GLOMERULAR FILTRATION RATE 48.9 (>58); MAGNESIUM LEVEL 2.2 MG/DL (1.8-2.4); PHOSPHORUS LEVEL 1.5 MG/DL (2.5-4.9); POTASSIUM SERUM 3.5 MEQ/L (3.5-5.1)
[2019-09-21 04:37] LABS: VENOUS BASE EXCESS -1.7 (-2.0-2.0); VENOUS HCO3 23.5 MEQ/L (23.0-27.0); VENOUS PARTIAL PRESSURE CO2 41.5 mmHg (38.0-50.0); VENOUS PARTIAL PRESSURE O2 68.2 mmHg (30.0-50.0); VENOUS STANDARD HCO3 22.9 MEQ/L; VENOUS TOTAL CO2 24.7 MEQ/L (24.0-28.0)
[2019-09-21] MEDS ORDERED: GLUCOSE 4 GM CHEW TABLET PO PRN (04:45)
[2019-09-21] MEDS ORDERED: GLUCAGON FOR INJ 1 MG VIAL (J1610) SC PRN (04:45)
[2019-09-21] MEDS ORDERED: DEXTROSE 50% 50 ML SYRINGE IV PRN (04:45)
[2019-09-21 05:01] LABS: CREATININE FOR GFR 1.15 MG/DL (0.55-1.30); GLOMERULAR FILTRATION RATE 55.4 (>58); MAGNESIUM LEVEL 2.1 MG/DL (1.8-2.4); PHOSPHORUS LEVEL 1.7 MG/DL (2.5-4.9); POTASSIUM SERUM 3.5 MEQ/L (3.5-5.1)
[2019-09-21] MEDS ORDERED: LEVEMIR (INSULIN DETEMIR) 1 UNITS/0.01ML SC ONE (05:15)
[2019-09-21] MEDS: HEPARIN SOD (PORCINE) 5000 UNITS/ML VIAL SC SCH ×3 (05:39→20:17)
[2019-09-21] MEDS: KCL 20MEQ IN D5/0.45NS 1000ML 1,000 ML IV SCH ×3 (05:40→23:57)
[2019-09-21 06:18] LABS: HEMATOCRIT 33.2 % (36.0-47.0); MEAN CORPUSCULAR HEMOGLOBIN 28.8 pg (27.0-33.0); MEAN CORPUSCULAR HGB CONC 32.2 g/dl (32.0-36.5); MEAN CORPUSCULAR VOLUME 89.5 fl (80.0-96.0); RED BLOOD COUNT 3.71 10^6/uL (4.00-5.40); WHITE BLOOD COUNT 10.2 10^3/uL (4.0-10.0)
[2019-09-21] MEDS: HumaLOG INSULIN (NovoLOG) PER UNIT SC SCH ×3 (06:29→18:00)
[2019-09-21 06:34] LABS: HEMOGLOBIN 10.7 g/dl (12.0-15.5); PLATELET COUNT, AUTOMATED 303 10^3/uL (150-450)
[2019-09-21] MEDS ORDERED: KCL 20MEQ IN 100ML SWI (KRUN) 20 MEQ in IV 1 EA IV ONE ×2 (07:15)
--- NOTE | 2019-09-21 07:51 | REP ---
Clinical: Central line placement . Comparison: 09/20/2019 . Findings: Left IJ line with tip in the right atrium. Loop recorder noted. The mediastinum and cardiac silhouette are stable and within normal limits for portable technique. The lung younger are clear without acute consolidation, effusion, or pneumothorax. Skeletal structures are intact. Impression: No acute cardiopulmonary process appreciated. Electronically Signed by Morris Irene MD 09/21/2019 07:43 A
[2019-09-21] MEDS: levETIRAcetam 250MG TABLET (KEPPRA) PO SCH ×2 (08:03→20:15)
[2019-09-21] MEDS: PANTOPRAZOLE 40MG TAB (PROTONIX) PO SCH (08:03)
[2019-09-21] MEDS: SERTRALINE HCL 25 MG TABLET PO SCH (08:03)
--- NOTE | 2019-09-21 08:08 | REP ---
Clinical: Follow up pneumonia . Comparison: 09/20/2019 . Findings: Left IJ line with tip in the right atrium. A loop recorder noted. The mediastinum and cardiac silhouette are stable and within normal limits for portable technique. The lung younger are clear without acute consolidation, effusion, or pneumothorax. Skeletal structures are intact. Impression: No acute cardiopulmonary process appreciated. Electronically Signed by Morris Irene MD 09/21/2019 07:59 A
[2019-09-21] MEDS ORDERED: ONDANSETRON 4MG/2ML VIAL (J2405) IV ONE (09:00)
[2019-09-21 09:55] LABS: BLOOD UREA NITROGEN 27 MG/DL (7-18); CALCIUM LEVEL 8.9 MG/DL (8.5-10.1); CARBON DIOXIDE LEVEL 26 MEQ/L (21-32); CHLORIDE LEVEL 112 MEQ/L (98-107); CREATININE FOR GFR 1.07 MG/DL (0.55-1.30); GLOMERULAR FILTRATION RATE > 60.0 (>58); GLUCOSE, FASTING 155 MG/DL (70-100); POTASSIUM SERUM 4.1 MEQ/L (3.5-5.1); SODIUM LEVEL 143 MEQ/L (136-145)
[2019-09-21 10:07] LABS: ACETONE/KETONE 2.32 MG/DL (<2.81)
--- NOTE | 2019-09-21 10:18 | IPNPDOC ---
Text Note Date of Service The patient was seen on 09/21/19. NOTE Subjective: Patient continues to have multiple episodes of vomiting and nausea. Patient didn't eat. Insulin drip was stopped overnight by night team. Patient denies fever, chills, chest pain, palpitations, diarrhea or dysuria Objective: GENERAL APPEARANCE: In moderate distress HEENT: Normocephalic, atraumatic. Mucous members moist and pink CARDIOVASCULAR: Regular rate and rhythm. No murmurs, rubs or gallops. Radial pulses are intact. There is no lower extremity edema LUNGS: Diminished lung sounds, ABDOMEN:. Abdomen is soft and nontender. MUSCULOSKELETAL: Range of motion is intact in all 4 extremities. There is wound 1 cm X 1 cm on the plantar surface on the left foot, not inflamed NEUROLOGICAL: Cranial nerves II-12 are grossly intact. Speech is not dysarthric Patient is 43 years old female with past medical history of type 1 diabetes, gastroparesis, seizure disorder, esophagitis admitted for DKA. Patient stated that on the she developed cough with fever and chills associated with greenish sputum production. Today patient developed multiple episodes of vomiting and nausea, she stated that she didn't miss a dose of insulin. In emergency room patient was found to have glucose level of 321, leukocytosis of 14, creatinine 1.5, anion gap of 17, ketonuria. Beta hydroxybutyrate 44.3 (1) DKA (diabetic ketoacidoses) Most likely secondary to noncompliance to medication. Resolved. Anion gap closed, bicarbonate 24, glucose level is under control, however patient can't eat due to vomiting and nausea. HbA1c 14 - insulin drip stopped by night team. 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 Patient noncompliant taking medication (4) Nausea & vomiting Secondary to DKA Zofran when necessary (5) Seizure Continue home meds (6) ISABEL (acute kidney injury) Improved Secondary to dehydration due to DKA Continue volume expansion Creatinine baseline 0.7 VS,Fishbone, I+O VS, Fishbone, I+O Laboratory Tests 09/20/19 13:02 09/20/19 20:55 09/20/19 23:05 09/21/19 01:44 09/21/19 04:25 09/21/19 05:43 09/21/19 09:21 Vital Signs Date Time Temp Pulse Resp B/P (MAP) Pulse Ox O2 Delivery O2 Flow Rate FiO2 09/21/19 04:00 98.5 96 14 125/83 (97) 95 Room Air I&O- Last 24 Hours up to 6 AM 09/21/19 06:00 Intake Total 4677 ml Output Total 5 ml Balance 4672 ml JACEK KELLEY DO Sep 21, 2019 10:18
[2019-09-21] MEDS ORDERED: ONDANSETRON 4MG/2ML VIAL (J2405) IV SCH (13:00)
[2019-09-21] MEDS: AZITHROMYCIN INJ 500 MG, VIAL MATE ADAPTER 1 EACH in D5W 250 ML IV SCH (20:09)
[2019-09-21] MEDS: cefTRIAXone SOD 1 GM in D5W MINI-BAG PLUS 50 ML IV SCH (20:15)
[2019-09-21] MEDS ORDERED: LEVEMIR (INSULIN DETEMIR) 1 UNITS/0.01ML SC SCH (21:00)
--- NOTE | 2019-09-22 00:11 | ECGEPIP ---
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
[2019-09-22] MEDS: ONDANSETRON 4MG/2ML VIAL (J2405) IV PRN ×3 (00:41→21:12)
[2019-09-22] MEDS ORDERED: DEXTROSE 50% 50 ML SYRINGE IV PRN (00:45)
[2019-09-22] MEDS ORDERED: GLUCAGON FOR INJ 1 MG VIAL (J1610) SC PRN (00:45)
[2019-09-22] MEDS ORDERED: GLUCOSE 4 GM CHEW TABLET PO PRN (00:45)
[2019-09-22] MEDS ORDERED: SODIUM CHLORIDE 0.9% INJ 10 ML SYR IV PRN (01:00)
[2019-09-22 04:00] VITALS: BP 118/78
[2019-09-22] MEDS: HEPARIN SOD (PORCINE) 5000 UNITS/ML VIAL SC SCH ×3 (05:06→21:13)
[2019-09-22] MEDS: SODIUM CHLORIDE 0.9% INJ 10 ML SYR IV SCH ×3 (05:06→21:13)
[2019-09-22 05:42] LABS: BASO % 0.3 % (0.0-1.0); EOS % 0.3 % (0.0-3.0); HEMATOCRIT 31.8 % (36.0-47.0); HEMOGLOBIN 9.8 g/dl (12.0-15.5); LYMPH # 1.5 10^3/uL (1.5-5.0); LYMPH % 24.2 % (24.0-44.0); MEAN CORPUSCULAR HEMOGLOBIN 28.5 pg (27.0-33.0); MEAN CORPUSCULAR HGB CONC 30.8 g/dl (32.0-36.5); MEAN CORPUSCULAR VOLUME 92.4 fl (80.0-96.0); MONO # 0.5 10^3/uL (0.0-0.8); MONO % 7.4 % (0.0-5.0); NEUTROPHILS # 4.3 10^3/uL (1.5-8.5); NEUTROPHILS % 67.6 % (36.0-66.0); PLATELET COUNT, AUTOMATED 242 10^3/uL (150-450); RED BLOOD COUNT 3.44 10^6/uL (4.00-5.40); WHITE BLOOD COUNT 6.3 10^3/uL (4.0-10.0)
[2019-09-22 05:44] LABS: BLOOD UREA NITROGEN 15 MG/DL (7-18); CALCIUM LEVEL 8.7 MG/DL (8.5-10.1); CARBON DIOXIDE LEVEL 27 MEQ/L (21-32); CHLORIDE LEVEL 110 MEQ/L (98-107); GLOMERULAR FILTRATION RATE > 60.0 (>58); GLUCOSE, FASTING 280 MG/DL (70-100); MAGNESIUM LEVEL 1.8 MG/DL (1.8-2.4); POTASSIUM SERUM 4.3 MEQ/L (3.5-5.1); SODIUM LEVEL 142 MEQ/L (136-145)
[2019-09-22 07:44] VITALS: BP 153/97
[2019-09-22] MEDS: HumaLOG INSULIN (NovoLOG) PER UNIT SC SCH ×4 (08:05→20:55)
[2019-09-22] MEDS ORDERED: LEVEMIR (INSULIN DETEMIR) 1 UNITS/0.01ML SC SCH ×3 (09:00→21:00)
[2019-09-22] MEDS: levETIRAcetam 250MG TABLET (KEPPRA) PO SCH ×2 (09:20→21:12)
[2019-09-22] MEDS: KCL 20MEQ IN D5/0.45NS 1000ML 1,000 ML IV SCH ×2 (09:20→19:19)
[2019-09-22] MEDS: SERTRALINE HCL 25 MG TABLET PO SCH (09:21)
[2019-09-22] MEDS: PANTOPRAZOLE 40MG TAB (PROTONIX) PO SCH (09:21)
[2019-09-22 10:22] LABS: BLOOD UREA NITROGEN 13 MG/DL (7-18); CALCIUM LEVEL 8.6 MG/DL (8.5-10.1); CARBON DIOXIDE LEVEL 28 MEQ/L (21-32); CHLORIDE LEVEL 111 MEQ/L (98-107); CREATININE FOR GFR 0.85 MG/DL (0.55-1.30); GLOMERULAR FILTRATION RATE > 60.0 (>58); GLUCOSE, FASTING 220 MG/DL (70-100); SODIUM LEVEL 144 MEQ/L (136-145)
[2019-09-22] MEDS: oxyCODONE 5MG TAB PO PRN ×2 (10:27→16:26)
[2019-09-22 10:40] LABS: INFLUENZA A AMPLIFICATION NEGATIVE (NEGATIVE); INFLUENZA B AMPLIFICATION NEGATIVE (NEGATIVE)
[2019-09-22 11:34] VITALS: BP 134/88
--- NOTE | 2019-09-22 13:29 | IPNPDOC ---
Text Note Date of Service The patient was seen on 09/22/19. NOTE Subjective: Patient stated that she feels better today, she tolerates food. Patient denies fever, chills, chest pain, palpitations, diarrhea or dysuria GENERAL APPEARANCE: In moderate distress HEENT: Normocephalic, atraumatic. Mucous members moist and pink CARDIOVASCULAR: Regular rate and rhythm. No murmurs, rubs or gallops. Radial pulses are intact. There is no lower extremity edema LUNGS: Diminished lung sounds, ABDOMEN:. Abdomen is soft and nontender. MUSCULOSKELETAL: Range of motion is intact in all 4 extremities. There is wound 1 cm X 1 cm on the plantar surface on the left foot, not inflamed NEUROLOGICAL: Cranial nerves II-12 are grossly intact. Speech is not dysarthric Patient is 43 years old female with past medical history of type 1 diabetes, gastroparesis, seizure disorder, esophagitis admitted for DKA. Patient stated that on the Rachana she developed cough with fever and chills associated with greenish sputum production. Today patient developed multiple episodes of vomiting and nausea, she stated that she didn't miss a dose of insulin. In e mergency room patient was found to have glucose level of 321, leukocytosis of 14, creatinine 1.5, anion gap of 17, ketonuria. Beta hydroxybutyrate 44.3 (1) DKA (diabetic ketoacidoses) Resolved. 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 Patient noncompliant taking medication (4) Nausea & vomiting Secondary to DKA Zofran when necessary (5) Seizure Continue home meds (6) ISABEL (acute kidney injury) Improved Secondary to dehydration due to DKA Continue volume expansion Creatinine baseline 0.7 VS,Fishbone, I+O VS, Fishbone, I+O Laboratory Tests 09/22/19 05:12 09/22/19 09:37 Vital Signs Date Time Temp Pulse Resp B/P (MAP) Pulse Ox O2 Delivery O2 Flow Rate FiO2 12/30/19 11:34 97.5 86 18 134/88 (710) 97 Room Air I&O- Last 24 Hours up to 6 AM 09/22/19 05:59 Intake Total 275 ml Output Total 2400 ml Balance -2125 ml JACEK KELLEY DO Sep 22, 2019 13:29
[2019-09-22] MEDS: AZITHROMYCIN INJ 500 MG, VIAL MATE ADAPTER 1 EACH in D5W 250 ML IV SCH (20:23)
[2019-09-22 20:26] VITALS: BP 88/60
[2019-09-22 20:31] VITALS: BP 88/62
[2019-09-22] MEDS ORDERED: NS 1,000 ML IV ONE (21:00)
[2019-09-22] MEDS: cefTRIAXone SOD 1 GM in D5W MINI-BAG PLUS 50 ML IV SCH (21:12)
[2019-09-22 23:00] VITALS: BP 127/93
[2019-09-23] MEDS: ONDANSETRON 4MG/2ML VIAL (J2405) IV PRN ×4 (02:34→21:45)
[2019-09-23] MEDS: HEPARIN SOD (PORCINE) 5000 UNITS/ML VIAL SC SCH ×3 (05:17→21:36)
[2019-09-23] MEDS: SODIUM CHLORIDE 0.9% INJ 10 ML SYR IV SCH ×3 (05:17→21:37)
[2019-09-23 05:46] LABS: BASO % 0.6 % (0.0-1.0); EOS # 0.1 10^3/uL (0.0-0.5); EOS % 1.7 % (0.0-3.0); HEMATOCRIT 32.3 % (36.0-47.0); HEMOGLOBIN 9.9 g/dl (12.0-15.5); LYMPH % 30.5 % (24.0-44.0); MEAN CORPUSCULAR HEMOGLOBIN 28.3 pg (27.0-33.0); MEAN CORPUSCULAR HGB CONC 30.7 g/dl (32.0-36.5); MEAN CORPUSCULAR VOLUME 92.3 fl (80.0-96.0); MONO # 0.5 10^3/uL (0.0-0.8); NEUTROPHILS # 3.9 10^3/uL (1.5-8.5); PLATELET COUNT, AUTOMATED 232 10^3/uL (150-450); WHITE BLOOD COUNT 6.5 10^3/uL (4.0-10.0)
[2019-09-23 06:06] LABS: BLOOD UREA NITROGEN 8 MG/DL (7-18); CALCIUM LEVEL 8.3 MG/DL (8.5-10.1); CARBON DIOXIDE LEVEL 27 MEQ/L (21-32); CHLORIDE LEVEL 108 MEQ/L (98-107); CREATININE FOR GFR 0.53 MG/DL (0.55-1.30); GLOMERULAR FILTRATION RATE > 60.0 (>58); GLUCOSE, FASTING 95 MG/DL (70-100); MAGNESIUM LEVEL 1.7 MG/DL (1.8-2.4); POTASSIUM SERUM 4.3 MEQ/L (3.5-5.1); SODIUM LEVEL 141 MEQ/L (136-145)
[2019-09-23 07:01] VITALS: BP 120/88
[2019-09-23] MEDS: HumaLOG INSULIN (NovoLOG) PER UNIT SC SCH ×4 (07:30→21:00)
[2019-09-23] MEDS: SERTRALINE HCL 25 MG TABLET PO SCH (08:55)
[2019-09-23] MEDS: levETIRAcetam 250MG TABLET (KEPPRA) PO SCH ×2 (08:55→21:36)
[2019-09-23] MEDS: LEVEMIR (INSULIN DETEMIR) 1 UNITS/0.01ML SC SCH ×2 (08:56→21:00)
[2019-09-23] MEDS: PANTOPRAZOLE 40MG TAB (PROTONIX) PO SCH (08:56)
[2019-09-23] MEDS: KCL 20MEQ IN D5/0.45NS 1000ML 1,000 ML IV SCH (08:56)
--- NOTE | 2019-09-23 11:49 | IPNPDOC ---
Text Note Date of Service The patient was seen on 09/23/19. NOTE Subjective: Patient complains of nausea, but stated that she feels much better today. Patient denies fever, chills, chest pain, palpitations, diarrhea or dysuria GENERAL APPEARANCE: In moderate distress HEENT: Normocephalic, atraumatic. Mucous members moist and pink CARDIOVASCULAR: Regular rate and rhythm. No murmurs, rubs or gallops. Radial pulses are intact. There is no lower extremity edema LUNGS: Diminished lung sounds, ABDOMEN:. Abdomen is soft and nontender. MUSCULOSKELETAL: Range of motion is intact in all 4 extremities. There is wound 1 cm X 1 cm on the plantar surface on the left foot, not inflamed NEUROLOGICAL: Cranial nerves II-12 are grossly intact. Speech is not dysarthric Patient is 43 years old female with past medical history of type 1 diabetes, g astroparesis, seizure disorder, esophagitis admitted for DKA. Patient stated that on the Rachana she developed cough with fever and chills associated with greenish sputum production. Today patient developed multiple episodes of vomiting and nausea, she stated that she didn't miss a dose of insulin. In emergency room patient was found to have glucose level of 321, leukocytosis of 14, creatinine 1.5, anion gap of 17, ketonuria. Beta hydroxybutyrate 44.3 (1) DKA (diabetic ketoacidoses) Resolved. 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
[2019-09-23 20:00] VITALS: BP 102/61
[2019-09-23] MEDS: AZITHROMYCIN 250 MG TAB PO SCH (21:36)
[2019-09-23] MEDS: AUGMENTIN 875 MG TAB PO SCH (21:36)
[2019-09-24] MEDS: HEPARIN SOD (PORCINE) 5000 UNITS/ML VIAL SC SCH ×3 (05:57→20:37)
[2019-09-24] MEDS: SODIUM CHLORIDE 0.9% INJ 10 ML SYR IV SCH ×3 (05:57→21:07)
[2019-09-24 06:22] LABS: BASO % 0.3 % (0.0-1.0); EOS # 0.2 10^3/uL (0.0-0.5); EOS % 2.7 % (0.0-3.0); HEMATOCRIT 30.4 % (36.0-47.0); HEMOGLOBIN 9.6 g/dl (12.0-15.5); LYMPH # 2.1 10^3/uL (1.5-5.0); LYMPH % 31.2 % (24.0-44.0); MEAN CORPUSCULAR HEMOGLOBIN 28.9 pg (27.0-33.0); MEAN CORPUSCULAR HGB CONC 31.6 g/dl (32.0-36.5); MEAN CORPUSCULAR VOLUME 91.6 fl (80.0-96.0); MONO # 0.6 10^3/uL (0.0-0.8); MONO % 8.1 % (0.0-5.0); NEUTROPHILS # 3.9 10^3/uL (1.5-8.5); NEUTROPHILS % 57.6 % (36.0-66.0); PLATELET COUNT, AUTOMATED 205 10^3/uL (150-450); RED BLOOD COUNT 3.32 10^6/uL (4.00-5.40); WHITE BLOOD COUNT 6.8 10^3/uL (4.0-10.0)
[2019-09-24 06:39] VITALS: BP 109/60
[2019-09-24] MEDS: ONDANSETRON 4MG/2ML VIAL (J2405) IV PRN (06:43)
[2019-09-24 06:44] LABS: BLOOD UREA NITROGEN 9 MG/DL (7-18); CALCIUM LEVEL 8.2 MG/DL (8.5-10.1); CARBON DIOXIDE LEVEL 29 MEQ/L (21-32); CHLORIDE LEVEL 106 MEQ/L (98-107); CREATININE FOR GFR 0.61 MG/DL (0.55-1.30); GLOMERULAR FILTRATION RATE > 60.0 (>58); GLUCOSE, FASTING 128 MG/DL (70-100); MAGNESIUM LEVEL 1.8 MG/DL (1.8-2.4); POTASSIUM SERUM 4.4 MEQ/L (3.5-5.1); SODIUM LEVEL 140 MEQ/L (136-145)
[2019-09-24] MEDS: HumaLOG INSULIN (NovoLOG) PER UNIT SC SCH ×4 (07:30→21:00)
[2019-09-24] MEDS: levETIRAcetam 250MG TABLET (KEPPRA) PO SCH ×2 (08:55→20:36)
[2019-09-24] MEDS: AUGMENTIN 875 MG TAB PO SCH ×2 (08:55→20:44)
[2019-09-24] MEDS: PANTOPRAZOLE 40MG TAB (PROTONIX) PO SCH (08:56)
[2019-09-24] MEDS: SERTRALINE HCL 25 MG TABLET PO SCH (08:56)
[2019-09-24] MEDS ORDERED: METOCLOPRAMIDE INJ 10MG/2ML VIAL (J2765) IV ONE (09:15)
[2019-09-24] MEDS: LEVEMIR (INSULIN DETEMIR) 1 UNITS/0.01ML SC SCH (09:51)
[2019-09-24] MEDS ORDERED: guaiFENesin DM LIQ 10ML UD PO PRN (10:30)
--- NOTE | 2019-09-24 10:51 | IPNPDOC ---
Text Note Date of Service The patient was seen on 09/24/19. NOTE Subjective: Patient complains of nausea, and congested chest. Patient denies f ever, chills, palpitations, diarrhea or dysuria GENERAL APPEARANCE: In moderate distress HEENT: Normocephalic, atraumatic. Mucous members moist and pink CARDIOVASCULAR: Regular rate and rhythm. No murmurs, rubs or gallops. Radial pulses are intact. There is no lower extremity edema LUNGS: Diminished lung sounds, ABDOMEN:. Abdomen is soft and nontender. MUSCULOSKELETAL: Range of motion is intact in all 4 extremities. There is wound 1 cm X 1 cm on the plantar surface on the left foot, not inflamed NEUROLOGICAL: Cranial nerves II-12 are grossly intact. Speech is not dysarthric Patient is 43 years old female with past medical history of type 1 diabetes, gastroparesis, seizure disorder, esophagitis admitted for DKA. Patient stated that on the Rachana she developed cough with fever and chills associated with greenish sputum production. Today patient developed multiple episodes of vomiting and nausea, she stated that she didn't miss a dose of insulin. In emergency room patient was found to have glucose level of 321, leukocytosis of 14, creatinine 1.5, anion gap of 17, ketonuria. Beta hydroxybutyrate 44.3. Patient received treatment with insulin drip, glucose level was stabilized (1) DKA (diabetic ketoacidoses) Resolved. 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
[2019-09-24 14:20] VITALS: BP 90/60
[2019-09-24] MEDS ORDERED: MIRALAX *UNIT DOSE* 17GM PACKET PO PRN (14:45)
[2019-09-24] MEDS: AZITHROMYCIN 250 MG TAB PO SCH (20:36)
[2019-09-24 20:49] VITALS: BP 91/60
[2019-09-24] MEDS ORDERED: LEVEMIR (INSULIN DETEMIR) 1 UNITS/0.01ML SC SCH (21:00)
[2019-09-25] MEDS: HEPARIN SOD (PORCINE) 5000 UNITS/ML VIAL SC SCH (06:17)
[2019-09-25] MEDS: SODIUM CHLORIDE 0.9% INJ 10 ML SYR IV SCH (06:18)
[2019-09-25 06:24] VITALS: BP 107/72
[2019-09-25 06:35] LABS: BASO % 0.3 % (0.0-1.0); EOS # 0.2 10^3/uL (0.0-0.5); EOS % 1.5 % (0.0-3.0); HEMATOCRIT 30.4 % (36.0-47.0); HEMOGLOBIN 9.4 g/dl (12.0-15.5); LYMPH % 9.4 % (24.0-44.0); MEAN CORPUSCULAR HEMOGLOBIN 28.6 pg (27.0-33.0); MEAN CORPUSCULAR HGB CONC 30.9 g/dl (32.0-36.5); MEAN CORPUSCULAR VOLUME 92.4 fl (80.0-96.0); MONO # 0.9 10^3/uL (0.0-0.8); MONO % 7.8 % (0.0-5.0); NEUTROPHILS # 8.7 10^3/uL (1.5-8.5); NEUTROPHILS % 80.4 % (36.0-66.0); PLATELET COUNT, AUTOMATED 194 10^3/uL (150-450); RED BLOOD COUNT 3.29 10^6/uL (4.00-5.40); WHITE BLOOD COUNT 10.8 10^3/uL (4.0-10.0)
[2019-09-25 07:00] LABS: BLOOD UREA NITROGEN 12 MG/DL (7-18); CALCIUM LEVEL 8.2 MG/DL (8.5-10.1); CARBON DIOXIDE LEVEL 32 MEQ/L (21-32); CHLORIDE LEVEL 103 MEQ/L (98-107); CREATININE FOR GFR 0.63 MG/DL (0.55-1.30); GLOMERULAR FILTRATION RATE > 60.0 (>58); GLUCOSE, FASTING 234 MG/DL (70-100); MAGNESIUM LEVEL 1.7 MG/DL (1.8-2.4); POTASSIUM SERUM 4.6 MEQ/L (3.5-5.1); SODIUM LEVEL 139 MEQ/L (136-145)
[2019-09-25] MEDS ORDERED: MAG SULF 1GM/100ML (MAG RUN) 1 GM in IV 1 EA IV ONE (07:30)
[2019-09-25] MEDS: HumaLOG INSULIN (NovoLOG) PER UNIT SC SCH ×2 (08:30→12:24)
[2019-09-25] MEDS: PANTOPRAZOLE 40MG TAB (PROTONIX) PO SCH (08:31)
[2019-09-25] MEDS: levETIRAcetam 250MG TABLET (KEPPRA) PO SCH (08:31)
[2019-09-25] MEDS: AUGMENTIN 875 MG TAB PO SCH (08:31)
[2019-09-25] MEDS: SERTRALINE HCL 25 MG TABLET PO SCH (08:32)
[2019-09-25] MEDS ORDERED: LEVEMIR (INSULIN DETEMIR) 1 UNITS/0.01ML SC SCH (09:00)
[2019-09-25] MEDS ORDERED: AZIT-12 PO (10:40)
[2019-09-25] MEDS ORDERED: AMOX875T2 PO (10:40)
[2019-09-25] MEDS ORDERED: ZOFR4TAB16 PO (17:03)
--- NOTE | 2019-09-25 17:14 | DS.PDOC ---
Discharge Summary General Date of Admission Sep 20, 2019 at 16:45 Date of Discharge 09/25/19 Discharge Summary PROCEDURES PERFORMED DURING STAY: None ADMITTING DIAGNOSES: DKA (diabetic ketoacidoses) Community acquired pneumonia Diabetes mellitus type 1, uncontrolled Nausea & vomiting Seizure ISABEL (acute kidney injury) DISCHARGE DIAGNOSES: DKA (diabetic ketoacidoses) Community acquired pneumonia Diabetes mellitus type 1, uncontrolled Nausea & vomiting Seizure ISABEL (acute kidney injury) COMPLICATIONS/CHIEF COMPLAINT: DKA. HISTORY OF PRESENT ILLNESS: Patient is 43 years old female with past medical history of type 1 diabetes, gastroparesis, seizure disorder, esophagitis admitted for DKA. Patient stated that on the [place]achana she developed cough with fever and chills associated with greenish sputum production. Today patient developed multiple episodes of vomiting and nausea, she stated that she didn't miss a dose of insulin. In emergency room patient was found to have glucose level of 321, leukocytosis of 14, creatinine 1.5, anion gap of 17, ketonuria. Beta hydroxybutyrate 44.3. Patient received treatment with insulin drip, glucose level was stabilized HOSPITAL COURSE: During hospital the following issue addressed (1) DKA (diabetic ketoacidoses) Resolved. Poorly controlled diabetes HbA1c 14 Detemir twice a day Electrolytes replacement Zofran IV when necessary and Reglan IV (2) Community acquired pneumonia Patient complains of the increased cough with greenish sputum on admission Chest x-ray didn't show any acute infiltrate Patient received treatment with azithromycin and ceftriaxone blood culture negative Incentive spirometry (3) Diabetes mellitus type 1, uncontrolled Patient noncompliant taking medication (4) Nausea & vomiting Secondary to DKA Zofran when necessary (5) Seizure Continue home meds (6) ISABEL (acute kidney injury) Improved Secondary to dehydration due to DKA Continue volume expansion Creatinine baseline 0.7 DISCHARGE MEDICATIONS: Please see below. ALLERGIES: Please see below. PHYSICAL EXAMINATION ON DISCHARGE: VITAL SIGNS: Please see below. GENERAL APPEARANCE: In moderate distress HEENT: Normocephalic, atraumatic. Mucous members moist and pink CARDIOVASCULAR: Regular rate and rhythm. No murmurs, rubs or gallops. Radial pulses are intact. There is no lower extremity edema LUNGS: Diminished lung sounds, ABDOMEN:. Abdomen is soft and nontender. MUSCULOSKELETAL: Range of motion is intact in all 4 extremities. There is wound 1 cm X 1 cm on the plantar surface on the left foot, not inflamed NEUROLOGICAL: Cranial nerves II-12 are grossly intact. Speech is not dysarthric LABORATORY DATA: Please see below. IMAGING: see above PROGNOSIS: favorable ACTIVITY: As tolerated. DIET: diabetes diet DISCHARGE PLAN: home DISPOSITION: 01 Home, Self-Care. 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 Vital Signs/I&Os Vital Signs Date Time Temp Pulse Resp B/P (MAP) Pulse Ox O2 Delivery O2 Flow Rate FiO2 09/25/19 06:24 99.1 109 18 107/72 (84) 84 Room Air I&O- Last 24 Hours up to 6 AM 09/25/19 06:00 Intake Total 1860 ml Balance 1860 ml Laboratory Data Labs 24H Laboratory Tests 2 09/24/19 17:00: Bedside Glucose (Misc Panel) 37*L 09/24/19 17:20: Bedside Glucose Confirm (Misc) 87 09/24/19 17:21: Bedside Glucose (Misc Panel) 88 09/24/19 20:46: Bedside Glucose (Misc Panel) 124H 09/25/19 06:14: Immature Granulocyte % (Auto) 0.6, Neutrophils (%) (Auto) 80.4H, Lymphocytes (%) (Auto) 9.4L, Monocytes (%) (Auto) 7.8H, Eosinophils (%) (Auto) 1.5, Basophils (%) (Auto) 0.3, Neutrophils # (Auto) 8.7H, Lymphocytes # (Auto) 1.0L, Monocytes # (Auto) 0.9H, Eosinophils # (Auto) 0.2, Basophils # (Auto) 0.0, Nucleated Red Blood Cells % (auto) 0.0, Anion Gap 4L, Glomerular Filtration Rate > 60.0, Calcium Level 8.2L, Magnesium Level 1.7L 09/25/19 11:32: Bedside Glucose (Misc Panel) 225H CBC/BMP Laboratory Tests 09/25/19 06:14 FSBS Laboratory Tests Test 09/24/19 17:00 09/24/19 17:21 09/24/19 20:46 09/25/19 11:32 Range/Units Bedside Glucose (Misc Panel) 37 88 124 225 70-105 MG/DL Microbiology Microbiology 09/22/19 Gram Stain - Final, Resulted 09/22/19 Sputum Culture - Preliminary, Resulted Staphylococcus Aureus 09/20/19 Blood Culture - Preliminary, Resulted No Growth after 72 hours. All specime... Discharge Medications Scheduled Amoxicillin/Potassium Clav (Amox-Clav 875-125 mg Tablet) 1 Each Tablet, 875 MG PO BID Azithromycin (Azithromycin) 250 Mg Tablet, 500 MG PO DAILY@2100 Insulin Degludec (Tresiba Flextouch U-200) 200 Unit/1 Ml Insuln.pen, 42 UNIT SC QAM, (Reported) Insulin Degludec (Tresiba Flextouch U-200) 200 Unit/1 Ml Insuln.pen, 12 UNIT SC QHS, (Reported) Insulin Human Lispro (Novolog) 100 Unit/1 Ml Vial, 1 DOSE SC AC, (Reported) PER SLIDING SCALE Levetiracetam (Keppra) 1,000 Mg Tablet, 1,000 MG PO BID, (Reported) HAS NOT BEEN FILLED SINCE JUL 2018 Pantoprazole Sodium (Pantoprazole Sodium) 40 Mg Tablet.dr, 40 MG PO DAILY, (Reported) Sertraline HCl (Sertraline HCl) 50 Mg Tablet, 75 MG PO DAILY, (Reported) Scheduled PRN Diazepam (Diazepam) 5 Mg Tablet, 5 MG PO BID PRN for ANXIETY, (Reported) Hydrocodone/Acetaminophen (Hydrocodone-Acetamin 7.5-325) 1 Each Tablet, 1 TAB PO QID PRN for PAIN, (Reported) Oxycodone Hcl (Oxycodone HCl) 15 Mg Tablet, 15 MG PO Q3H PRN for PAIN, (Reported) Allergies Coded Allergies: ciprofloxacin (Verified Allergy, Unknown, SKIN BLISTERS, 07/16/19) vancomycin (Verified Allergy, Unknown, SKIN BLISTERS, 07/16/19) gabapentin (Verified Adverse Reaction, Unknown, VERTIGO, 07/21/19) pregabalin (Verified Adverse Reaction, Unknown, DIARRHEA, 07/21/19) JACEK KELLEY DO Sep 25, 2019 17:14
== END 2019-09-25 13:25 | disposition home or self-care (01) | DRG 637 ==
LOC: M ED 12:11 → EDBD 12:11 → M ED INP 16:45 → M ICU 18:38 → M PCU 09-21 22:24 → M MS5PR 09-22 17:11
PROVIDERS: ADMIT Internal Medicine; ATTEND Internal Medicine
PROC: 02HV33Z Insertion of Infusion Device into Superior Vena Cava, Percutaneous Approach (ICD-10-PCS; principal; 2019-09-20)
DX: E10.10 Type 1 diabetes mellitus with ketoacidosis without coma (principal); J18.9 Pneumonia, unspecified organism; N17.9 Acute kidney failure, unspecified; G40.909 Epilepsy, unspecified, not intractable, without status epilepticus; E10.43 Type 1 diabetes mellitus with diabetic autonomic (poly)neuropathy; Z79.4 Long term (current) use of insulin; Z79.899 Other long term (current) drug therapy; Z88.8 Allergy status to other drugs, medicaments and biological substances